=== PATIENT | male | born 1950 | race Caucasian/White ===

== ENCOUNTER 2025-01-08 07:10 | Inpatient (IN) | payer OTHER ==
--- OUTSIDE RECORDS SUMMARY | 2025-01-08 07:21 | XMS REPORT | Clinical Summary ---
Author Name Unknown Organization [facility] [place] Address [address] [place] [address] Care Team Providers Care Screen Operator Name Role Phone Farhan Bond MD Unavailable [phone] Mila Monreal APRN Primary Care Provider Gómez Ortiz Unavailable Figueroa Humphreys MD Unavailable Catracho Oseguera MD PhD Unavailable Maru Medina RN Unavailable [phone] Catracho Oseguera MD PhD Primary Care Provider [phone] Catarino Vang MD Unavailable Allergies No known active allergies Medications hydrALAZINE (APRESOLINE) 100 mg tablet Take 1 tablet (100 mg) by mouth 3 (three) times a day. Active eplerenone (INSPRA) 50 mg tablet Take 1 tablet (50 mg) by mouth daily. Active atorvastatin (LIPITOR) 20 mg tablet Take 1 tablet (20 mg) by mouth at bedtime. Active NIFEdipine (ADALAT CC) 60 MG 24 hr tablet Take 1 tablet (60 mg) by mouth daily. Active tamsulosin (FLOMAX) 0.4 mg 24 hr capsule Take 1 capsule (0.4 mg) by mouth daily. Active ezetimibe (ZETIA) 10 mg tablet Take 1 tablet (10 mg) by mouth daily. Active dutasteride (AVODART) 0.5 mg capsule Take 1 capsule (0.5 mg) by mouth at bedtime. Active pantoprazole (PROTONIX) 40 mg EC tablet Take 1 tablet (40 mg) by mouth 2 (two) times a day before meals. Active metFORMIN (GLUCOPHAGE-XR) 500 mg 24 hr tablet Take 1 tablet (500 mg) by mouth daily with breakfast. Active co-enzyme Q-10 30 mg capsule Take 1 capsule (30 mg) by mouth daily. Active fluticasone propionate (FLONASE) 50 mcg/spray nasal spray Inhale 2 sprays (100 mcg) into each nostril daily. Active cholecalciferol , vitamin D3, 1,250 mcg (50,000 unit) capsuleIndicati ons:Adenocarcin frederick, NOS of unknown primary site,Vitamin D deficiency, not otherwise specified Take 1 capsule (50,000 Units) by mouth every 7 days. 12 capsule Active naloxone (Narcan) 4 mg/actuation nasal sprayIndication s:Adenocarcinom a, NOS of unknown primary site Use 1 dose into one nostril as needed for opioid overdose. Do not prime or test the inhaler prior to adminstration. Give another dose into the other nostril after 2 to 3 minutes if the patient does not respond or responds and then relapses into respiratory depression. 1 each Active aspirin 81 mg chewable tabletIndicatio ns:Adenocarcino ma, NOS of unknown primary site Chew and swallow 1 tablet (81 mg) by mouth daily for 90 days. 90 tablet 2024 Active senna-docusate (Senna Plus) 8.6 mg-50 mg tabletIndicatio ns:Constipation , not otherwise specified Take 4 tablets by mouth twice daily. 240 tablet 5 3:13 PM CDT Active lidocaine (LIDODERM) 5% (700 mg/patch) transdermal patchIndication s:Neoplasm related pain (acute) (chronic) Place 2 patches on the skin daily. Remove & Discard patch within 12 hours or as directed by . Remove old patch(es) before replacing new patch(es). 30 patch 5 3:13 PM CDT 025 Active OLANZapine (ZyPREXA) 2.5 mg tabletIndicatio ns:Insomnia, not otherwise specified Take 1 tablet by mouth every 6 hours as needed for anxiety and 2 tablets (5mg) at bedtime for sleep. 120 tablet 5 3:13 PM CDT 025 Active polyethylene glycol (GLYCOLAX) 17 gram/dose powderIndicatio ns:Constipation , not otherwise specified Fill powder to ghada inside cap (17 g). Stir and dissolve in any 4 to 8 ounces then drink solution as directed. Take 17 g by mouth twice daily. 1020 g 5 3:13 PM CDT 025 Active sodium chloride 1,000 mg tabletIndicatio ns:Hyposmolalit y and/or hyponatremia Take 2 tablets (2 g) by mouth 3 (three) times a day. 180 tablet 5 3:13 PM CDT 025 Active ondansetron (Zofran) 8 mg tabletIndicatio ns:Adenocarcino ma, NOS of unknown primary site Take 1 tablet (8 mg) by mouth every 8 (eight) hours as needed for nausea or vomiting. (First Choice) 30 tablet 5 025 Active prochlorperazin e (Compazine) 10 mg tabletIndicatio ns:Adenocarcino ma, NOS of unknown primary site Take 1 tablet (10 mg) by mouth every 6 (six) hours as needed for nausea or vomiting. (Second Choice). Do not take at the same time as olanzapine 60 tablet 5 025 Active morphine (MS CONTIN) 30 mg 12 hr tabletIndicatio ns:Chronic pain due to malignant neoplastic disease Take 1 tablet (30 mg) by mouth every 8 (eight) hours. 025 Active morphine (MSIR) 15 mg IR tabletIndicatio ns:Chronic pain due to malignant neoplastic disease Take 1 tablet (15 mg) by mouth every 4 (four) hours as needed for moderate pain or severe pain. 90 tablet 5 12:24 PM CDT 025 Active chlorthalidone (HYGROTON) 25 mg tablet Take 1 tablet (25 mg) by mouth daily. 2024 Discontinued(S top Taking at Discharge) docusate sodium (COLACE) 100 mg capsule Take 1 capsule (100 mg) by mouth twice daily. 2024 Discontinued(S top Taking at Discharge) UNABLE TO FIND Take 1 capsule by mouth daily. Med Name: Akkermansia for weight loss 2024 Discontinued(S top Taking at Discharge) sodium,potassiu m,mag sulfates (SUPREP BOWEL PREP KIT) 5-3.13-1.6 gram solutionIndicat ions:Colonoscop y planned Take as directed for colonoscopy prep 1 kit 025 2024 Discontinued(S top Taking at Discharge) acetaminophen-c odeine (TYLENOL #3) 300 mg-30 mg tabletIndicatio ns:Adenocarcino ma, NOS of unknown primary site Take 1 tablet by mouth 3 (three) times a day as needed for mild pain or moderate pain. 40 tablet 025 2024 Discontinued(S top Taking at Discharge) gabapentin (Neurontin) 300 mg capsuleIndicati ons:Cancer associated pain Take 1 capsule (300 mg) by mouth 3 (three) times a day. 90 capsule 025 2024 Discontinued(S top Taking at Discharge) meloxicam (MOBIC) 7.5 mg tabletIndicatio ns:Cancer associated pain Take 1 tablet (7.5 mg) by mouth twice daily for 90 days. 60 tablet 2 025 2024 Discontinued(S top Taking at Discharge) oxyCODONE (ROXICODONE) 5 mg immediate release tabletIndicatio ns:Adenocarcino ma, NOS of unknown primary site,Vitamin D deficiency, not otherwise specified Take 1-2 tablets (5-10 mg) by mouth every 8 (eight) hours as needed for moderate pain or severe pain for up to 30 days. 90 tablet 025 2024 Discontinued senna-docusate (Senna Plus) 8.6 mg-50 mg tabletIndicatio ns:Adenocarcino ma, NOS of unknown primary site Take 1-2 tablets by mouth 2 (two) times a day as needed for constipation for up to 90 days. 180 tablet 025 2024 Discontinued(S top Taking at Discharge) oxyCODONE (ROXICODONE) 5 mg immediate release tabletIndicatio ns:Adenocarcino ma, NOS of unknown primary site,Vitamin D deficiency, not otherwise specified Take 1 to 2 tablets (5 to 10 mg) by mouth every 8 (eight) hours as needed for moderate pain or severe pain for up to 30 days. 90 tablet 5 11:39 AM CDT 025 2024 Discontinued(S top Taking at Discharge) HYDROmorphone (DILAUDID) 2 mg tabletIndicatio ns:Neoplasm related pain (acute) (chronic) Take 1 tablet (2 mg) by mouth every 4 (four) hours as needed (Pain). 90 tablet 5 3:13 PM CDT 025 2024 Discontinued(S top Taking at Discharge) morphine (MS CONTIN) 30 mg 12 hr tabletIndicatio ns:Neoplasm related pain (acute) (chronic) Take 1 tablet (30 mg) by mouth every 12 (twelve) hours. 60 tablet 5 3:13 PM CDT 2024 Discontinued(S top Taking at Discharge) magnesium citrate solutionIndicat ions:Adenocarci noma, NOS of unknown primary site Take 296 mL by mouth once for 1 dose. 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 Diplopia 12/26/2024 Disorder of choroid 12/26/2024 Other visual disturbance 12/26/2024 Abnormal ocular motility 12/26/2024 Bilateral lower limb edema 12/25/2024 Hypertension 12/25/2024 Coronary arteriosclerosis 12/25/2024 Other hyperlipidemia 12/25/2024 Benign prostatic hyperplasia 12/25/2024 Anemia in malignant neoplastic disease At increased risk for delirium 12/24/2024 Stress and adjustment reaction 12/24/2024 Adult failure to thrive 12/23/2024 Acute hypoxemic respiratory failure 12/23/2024 Uniform abdominal distention 12/22/2024 Assessment & Plan (12/22/2024 1:57 PM CDT): Malignant ascites - Evaluated by MPT: patient has NO fluid quantity to tap at bedside Assessment & Plan (12/22/2024 4:01 AM CDT): Malignant ascites - MPT consult pending evaluation Malignant pleural effusion 12/22/2024 Assessment & Plan (12/22/2024 1:57 PM CDT): - not on anticoagulation - Pulmonary consulted and saw patient, planned for IPC placement 12/23/24. Assessment & Plan (12/22/2024 4:01 AM CDT): - not on anticoagulation - Pulmonary consult pending for thoracentesis Malignant ascites 12/22/2024 Cardiac enzyme or marker above reference range 0 12/22/2024 Assessment & Plan (12/22/2024 11:41 AM CDT): - Troponin 23 >23 - Denies any chest pain - EKG SR, prolonged MI interval; anterolateral infarct, old, significant repolarization change - continue telemetry Assessment & Plan (12/22/2024 4:01 AM CDT): - Troponin 23 - denies any chest pain - EKG SR, prolonged MI interval; anterolateral infarct, old, significant repolarization change - trend troponin - continue telemetry Alkaline phosphatase above reference range 12/22 D-dimer above reference range 12/22/2024 Assessment & Plan (12/22/2024 11:41 AM CDT): - D- dimer 2.09 - SpO2 94-97% at 3L via NC - Last Echo on 12/16/24 showed LVEF of 60%, no pericardial effusion. - CT Chest PE on 12/15/24 no acute pulmonary embolism. Assessment & Plan (12/22/2024 4:01 AM CDT): - D- dimer 2.09 - SpO2 94-97% at 3L via NC - Last Echo on 12/16/24 showed LVEF of 60%, no pericardial effusion. - CT Chest PE on 12/15/24 no acute pulmonary embolism. - continue to monitor Hyponatremia 12/22/2024 Assessment & Plan (12/22/2024 11:41 AM CDT): - sNa 132 > 133. - trend and monitor Adenocarcinoma, NOS of unknown primary site -Management per primary team Assessment & Plan (12/22/2024 6:53 AM CDT): - sNa 132 - trend and monitor Adenocarcinoma, NOS of unknown primary site - management per primary team Flatulence 12/22/2024 Assessment & Plan (12/22/2024 1:57 PM CDT): -Start Creon 3 times daily with meals. Simethicone as needed. Cancer-related fatigue 12/19/2024 Adjustment disorder with mixed anxiety and depre ssed mood 12/19/2024 Nausea alone 12/19/2024 Cancer associated pain 12/19/2024 Assessment & Plan (12/22/2024 1:57 PM CDT): -Epigastric pain that radiates to right back side, worse with eating. Continue MS contin 30 mg Q12h, HDM PO PRN, and HDM IV PRN. Assessment & Plan (12/22/2024 4:01 AM CDT): - continue MS contin 30 mg Q12h, HDM PO PRN, and HDM IV PRN Slow transit constipation 12/17/2024 Assessment & Plan (12/22/2024 1:57 PM CDT): Reports small BMs over the last week, feels constipated. Start senna and MiraLAX, suppository x 1. Patient had BM x 1 today post bowel regimen. Chronic pain due to malignant neoplastic disease 12/17/2024 Physical deconditioning 12/17/2024 Other elevated white blood cell count 12/17/2024 Assessment & Plan (12/22/2024 11:41 AM CDT): - likely d/t steroid with chemotherapy on 12/21/24 - WBC trended up to 17.6 today (12/22/24) from 10.5 on 12/21/24 - Afebrile. Trend and monitor - monitor off antibiotics Assessment & Plan (12/22/2024 6:53 AM CDT): - likely d/t steroid with chemotherapy on 12/21/24 - Addendum: WBC trended up to 17.6 today (12/22/24) from 10.5 on 12/21/24 - trend and monitor - monitor off antibiotics Generalized abdominal tenderness 12/17/2024 Diffuse pain 12/17/2024 Neuropathic pain 12/17/2024 Pain in right hip 12/17/2024 Pain in right leg 12/17/2024 Pleural effusion 12/15/2024 Right upper quadrant pain 12/15/2024 Mass of pancreas 12/15/2024 Hyposmolality and/or hyponatremia 12/15/2024 Dyspnea 12/15/2024 Assessment & Plan (12/22/2024 11:41 AM CDT): - Likely due to pleural effusion. SpO2 94-97% at 3L via NC - Doppler ultrasound of the lower extremities was negative for DVT. - Chest XR: Increase in malignant right pleural effusion, now moderate in volume. - Duo Nebs PRN - CPAP ordered - Evaluated by pulmonary, plan for IPC placement 12/23/24 Assessment & Plan (12/22/2024 4:01 AM CDT): - SpO2 94-97% at 3L via NC - Doppler ultrasound of the lower extremities was negative for DVT. - Chest XR: Increase in malignant right pleural effusion, now moderate in volume. - Duo Nebs PRN - CPAP ordered - Pulmonary consult pending evaluation Pancreas, NOS cancer 12/12/2024 Adenocarcinoma, NOS of unknown primary site 11/12 Encounters Date Type Department Care Team Description 01/06/2025 Documentation Cardiopulmonary Center - Pulmonology Medicine [address] [facility] Main [facility], 6th [place] [address] Elizabeth Daniels, DIRECTOR SPEECH AND HEARING 01/05/2025 Telephone [facility] [address] [place] [address] Maru Medina, RN [facility] Initial Call 01/03/2025 Documentation [facility] for Target[facility] Therapy [address] [facility] Main Bldg, 11th [place] [address] Ashley Guo 01/03/2025 Documentation [facility] [address] [place] [address] Main [facility], 7th [place] [address] Ashlyn Dobson PA 01/02/2025 Telephone [facility] [address] [place] [address] Maru Medina, [facility] Initial Call 01/02/2025 Documentation Case Management [address] [place] [address] Reema Rapp RN 01/02/2025 Orders Only [facility] [address] [place] [address] Main dg, 7th Floor Elevator [address] [place] [id number] Ashlyn Dobson PA Adenocarcinoma, NOS of unknown primary site (Primary Dx) 01/02/2025 Telephone [facility] [address] [place] [address] Main [facility], 7th [place] [address] Sultana Boggs RN 12/29/2024 5:34 PM CDT Anesthesia Event [facility] [address] [place] [address], 3rd [place] [address] Yasemin Peters MD Jarvis, Lauren M, CRNA 12/28/2024 Telephone [facility] [address] [place], [place] [id number] Maru Medina, [facility] Initial Call 12/26/2024 Orders Only [facility] - Ophthalmology [address] [place] [address] Main dg, 9th [place] [address] Allen Downs, OD 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); Malignant neoplasm of eye <Right side> 12/26/2024 Telephone Case Management [facility] [place] [address] Daylin Castillo RN 12/26/2024 Orders Only Clinical [facility] for Targeted Therapy [facility] Main Bldg, 11th [place] [address] Ashley Guo Adenocarcinoma, NOS of pancreas, NOS (Primary Dx) 12/26/2024 Ophth Exam [facility] - Ophthalmology [address] [facility] Main Bldg, 9th [place] [address] Kirsten Gary MD 12/23/2024 11:10 AM CDT - 12/23/2024 12:35 PM CDT Surgery Cardiop[facility] Center - Pulmonology Procedures [address] [facility] Main dg, 6th [place] [address] Alexis Vasquez MD INSERTION OF INDWELLING TUNNELED PLEURAL CATHETER WITH CUFF 12/23/2024 Orders Only [facility] - Pulmonology Medicine [address] [place] [address] Main dg, 6th [place] [address] Ritesh Green APRN 12/22/2024 Prep for Surgery Card[facility] - Pulmonology Medicine [facility] Main Bldg, 6th [place] [address] Ritesh Green, ROJAS Pleural effusion (Primary Dx) 12/22/2024 Documentation [facility] [address] [place] [address] Main Bldg, 11th [place] [address] Ashley Guo 12/22/2024 Travel 12/21/2024 8:00 PM CDT - 12/30/2024 2:55 PM CDT Hospital Encounter MAIN [address] [place] [address] Ryder Gaines MD Brock, MD Cristiana Quiles Ayman, MD Musunuru, Tejo, MD Musaelyan, Arine, MD Mohammed, Dorcas Tracey MD Regalado-Dellan, Octavio, MD Adenocarcinoma, NOS of unknown primary site (Primary Dx); Malignant pleural effusion; Malignant ascites; Dyspnea; Mass of pancreas; Abnormal ocular motility; Other visual disturbance; Diplopia; Anemia in malignant neoplastic disease; Benign prostatic hyperplasia; Other hyperlipidemia; Hypertension; Bilateral lower limb edema; Stress and adjustment reaction; At increased risk for delirium; Acute hypoxemic respiratory failure; Adult failure to thrive; Flatulence; Hyponatremia; D-dimer above reference range; Alkaline phosphatase above reference range; Cardiac enzyme or marker above reference range; Uniform abdominal distention; Cancer associated pain; Nausea alone; Adjustment disorder with mixed anxiety and depressed mood; Cancer-related fatigue; Pain in right leg; Pain in right hip; Neuropathic pain; Diffuse pain; Generalized abdominal tenderness; Other elevated white blood cell count; Physical deconditioning; Chronic pain due to malignant neoplastic disease; Slow transit constipation; Hyposmolality and/or hyponatremia; Right upper quadrant pain; Pleural effusion; 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 Discharge Disposition: Home with Home-Health or Physical Therapy 12/21/2024 3:30 PM CDT [facility] [place] [place] [address] [facility], 8th [place] [address] Ashlyn Dobson PA Fakhoury, Vivian A, RN Adenocarcinoma, NOS of unknown primary site (Primary Dx) 12/21/2024 3:00 PM CDT Follow-Up [facility] [address] [place] [address], 7th Floor Elevator [address] [place] [id number] Catracho Oseguera MD PhD Adenocarcinoma, NOS of unknown primary site (Primary Dx); Constipation, not otherwise specified; Fatigue; Neoplasm related pain (acute) (chronic) 12/21/2024 12:46 PM CDT - 12/21/2024 7:59 PM CDT Hospital Encounter [facility] [address] [place] [address] Ashlyn Dobson PA Adenocarcinoma, NOS of unknown primary site; Adenocarcinoma, NOS of pancreas, NOS Discharge Disposition: Home 12/21/2024 Orders Only Urgent Symptom Clinic [address] [place] [address], 2nd Floor Elevator C, Check-in at the [facility]ulatory [facility] [place] [address] Alem Armenta, DIRECTOR SPEECH AND HEARING 12/21/2024 Orders Only Clinical [facility] for Targeted Therapy [facility] Main [facility], 11th [place] [address] PacoAshley Adenocarcinoma, NOS of pancreas, NOS (Primary Dx) 12/21/2024 Orders Only [facility] [address] [place] [address] Main [facility], 7th [place] [address] Sarah Barth, [facility] Adenocarcinoma, NOS of unknown primary site (Primary Dx) 12/21/2024 Travel 12/20/2024 Telephone [facility] [address] [facility], 8th Floor Elevator T [place] [address] Josué Thomas RN Chemotherapy 12/20/2024 Orders Only Cardiopulmonary Center - Pulmonology Medicine [address] [place] [address], 6th [place] [address] Macie Sarah, DIRECTOR SPEECH AND HEARING Pleural effusion (Primary Dx) 12/20/2024 Orders Only [facility] [address] [place] [address], 11th [place] [address] PacoAshley Adenocarcinoma, NOS of pancreas, NOS (Primary Dx) 12/19/2024 Orders Only [facility] [address] [place] [address], 11th [place] [address] Paco Ashley Adenocarcinoma, NOS of pancreas, NOS (Primary Dx) 12/16/2024 Documentation [facility] [address] [place] [address] Maru Medina, RN 12/15/2024 4:13 PM CDT - 12/15/2024 5:18 PM CDT Surgery Cardiopulmonary Center - Pulmonology Procedures [address] [facility] Main [facility], 6th [place] [address] Colby Callahan MD THORACENTESIS,NEEDLE OR CATHETER,ASPIRATION OF THE PLEURAL SPACE; WITH IMAGING GUIDANCE 12/15/2024 6:17 AM CDT - 12/20/2024 5:35 PM CDT Hospital Encounter [place] [address] [place] [address] Clarisse Can MD Lamie, Peter, DO Taylor, Terry Pham, MD Leung, Cerena, MD Leukocytosis (Primary Dx); Mass of pancreas; Hyposmolality and/or hyponatremia; Pleural effusion; Abdominal pain; Generalized abdominal tenderness; Physical deconditioning; Chronic pain due to malignant neoplastic disease; Slow transit constipation; Shortness of breath; Right upper quadrant pain; Adenocarcinoma, NOS of unknown primary site; Constipation, not otherwise specified; Neoplasm related pain (acute) (chronic); Insomnia, not otherwise specified; Cancer-related fatigue; Cancer associated pain; Nausea alone; Adjustment disorder with mixed anxiety and depressed mood; Pain in right leg; Pain in right hip; Neuropathic pain; Diffuse pain Discharge Disposition: Home with Home-Health or Physical Therapy 12/15/2024 Orders Only [facility] [address] [place] [address], 7th [place] [address] Catracho Oseguera MD PhD 12/15/2024 Orders Only Gastrointestinal [address], 7th Floor Elevator A [place] [id number] Ashlyn Dobson PA Adenocarcinoma, NOS of pancreas, NOS (Primary Dx) 12/15/2024 Prep for Surgery [facility] - Pulmonology Medicine [address] [place] [address], 6th [place] [address] Mariah Joiner APRN Pleural effusion (Primary Dx) 12/15/2024 Orders Only Gastrointestinal [address], 7th [place] [address] Ashlyn Dobson PA Adenocarcinoma, NOS of unknown primary site (Primary Dx) 12/15/2024 Telephone [facility] [address] [place] [address] Main [facility], 7th Floor Elevator [address] [place] [id number] Ag Horton RN 12/15/2024 Travel 12/14/2024 10:15 AM CDT - 12/14/2024 11:59 PM CDT Hospital Encounter [facility] [address] [place] [address] Ashlyn Dobson PA Adenocarcinoma, NOS of unknown primary site Discharge Disposition: Home 12/14/2024 9:00 AM CDT Consult [facility] [address] [place] [address], 7th [place] [address] Catracho Oseguera MD PhD Adenocarcinoma, NOS of unknown primary site (Primary Dx); Vitamin D deficiency, not otherwise specified 12/14/2024 7:48 AM CDT - 12/14/2024 10:14 AM CDT Hospital Encounter [facility] [address] [place] [address] Ashlyn Dobson PA Adenocarcinoma, NOS of unknown primary site; Adenocarcinoma, NOS of pancreas, NOS; Vitamin D deficiency, not otherwise specified Discharge Disposition: Home 12/14/2024 Documentation [facility] [address] [place] [address], 7th [place] [address] Any Estes 12/14/2024 Orders Only Neuroradiology [address] [place] [address] Nereida Hernandez MD 12/12/2024 8:45 AM CDT - 12/12/2024 11:59 PM CDT Hospital Encounter [facility] Management Center [address] [place] [address], 4th [place] [address] Figueroa Humphreys MD Discharge Disposition: Home 12/12/2024 8:29 AM CDT - 12/12/2024 8:44 AM CDT Hospital Encounter [facility] [address] [place] [address], 4th [place] [address] Figueroa Humphreys MD Chronic pain Discharge Disposition: Home 12/12/2024 Refill Internal Medicine Center [address] [place] [address], 9th [place] [address] Antionette Iyer RN Adenocarcinoma, NOS of unknown primary site 12/12/2024 Orders Only Gastrointestinal Center [address] [facility] Main Bldg, 7th [place] [address] Ashlyn Dobson PA Adenocarcinoma, NOS of pancreas, NOS (Primary Dx) 12/12/2024 Travel 12/08/2024 Orders Only Gastrointestinal Center [facility] Main dg, 7th [place] [address] Ashlyn Dobson PA Adenocarcinoma, NOS of unknown primary site (Primary Dx) 12/07/2024 10:20 AM CDT - 12/07/2024 11:59 PM CDT Hospital Encounter Pain Management Center [facility] Main [facility], 4th [place] [address] Manolo Carpio MD Nouri, Kent, MD Cancer associated pain (Primary Dx); Adenocarcinoma, NOS of unknown primary site Discharge Disposition: Home 12/07/2024 Telephone Internal Medicine Center [facility] Main dg, 9th [place] [address] Carlos Enrique Monrealira, DIRECTOR SPEECH AND HEARING 12/07/2024 Orders Only Internal Medicine Center [facility] Main [facility], 9th [place] [address] Jocelin Latira, DIRECTOR SPEECH AND HEARING 12/07/2024 Orders Only Pain Management Center [facility] Main [facility], 4th [place] [address] Wayne Farris MD Chronic pain (Primary Dx) 12/07/2024 Orders Only Pain Management Center [address] [facility] Main dg, 4th [place] [address] Figueroa Humphreys MD 12/06/2024 Telephone Internal Medicine Center [address] [facility] Main dg, 9th [place] [address] Carlos Enrique Monrealira, DIRECTOR SPEECH AND HEARING 12/05/2024 10:55 AM CDT Anesthesia Event Endoscopy Center [address] [facility] Main dg, 5th Floor Elevator [place] [id number] Lele Horne MD 12/05/2024 10:30 AM CDT - 12/05/2024 11:40 AM CDT Surgery [facility] [address] [place] [address], 5th [place] [address] Senia Mason MD DIAGNOSTIC UPPER GASTROINTESTINAL ENDOSCOPY 12/05/2024 8:57 AM CDT - 12/05/2024 12:29 PM CDT Hospital Encounter Endoscopy Center [address] [place] [address], 5th [place] [address] Senia Mason MD Adenocarcinoma, NOS of unknown primary site Discharge Disposition: Home 12/05/2024 Travel 12/02/2024 9:25 AM CDT - 12/02/2024 11:59 PM CDT Hospital Encounter [facility] [address] [place] [address] Mila Monreal APRN Irwin, David, MD Adenocarcinoma, NOS of unknown primary site Discharge Disposition: Home 12/02/2024 8:00 AM CDT POEM Appointments Perioperative Evaluation [facility] Management Center [address] [place] [address], 6th [place] [address] Mila Monreal APRN 12/01/2024 11:59 PM CDT Anesthesia Event [facility] [address] [place] [address], 6th [place] [address] Yina Mcarthur RN 12/01/2024 12:00 PM CDT - 12/01/2024 11:59 PM CDT Hospital Encounter [facility] [address] [place] [address] Mila Monreal APRN Hoang, Quoc T, PA Adenocarcinoma, NOS of unknown primary site [C80.1] (Primary Dx) Discharge Disposition: Home 12/01/2024 Orders Only Interventional Radiology [address] [facility], 4th [place] [address] Gómez Ortiz PA 12/01/2024 Orders Only Internal Medicine Center [address] Main Bldg, 9th [place] [address] Jocelin, Latira, DIRECTOR SPEECH AND HEARING Adenocarcinoma, NOS of unknown primary site (Primary Dx) 11/29/2024 Telephone Internal Medicine Center [address] Main Bldg, 9th [place] [address] Jocelin, Latira, DIRECTOR SPEECH AND HEARING Results (I discussed PET/Ct results with the patient yesterday as well as a plan. We will proceed with IR bx/EGD/colonoscopy. Dr. Grimaldo and Dr. Rodriguez was in agreement with plan. Patient was agreeable. ) 11/29/2024 Orders Only Gastrointestinal Center - Gastroenterology, Hepatology & Nutrition [address] Main Bldg, 7th [place] [address] Damari Gilliland PA Colonoscopy planned (Primary Dx) 11/29/2024 Refill Endoscopy Center [address] Main Bldg, 5th [place] [address] Supriya Goldman RN 11/29/2024 Orders Only Main Interventional Radiology [address] [facility] Bldg, 3rd [place] [address] [place] R[place] PA 11/28/2024 Orders Only Internal Medicine Center [address] Main Bldg, 9th [place] [address] Jocelin, Latira, DIRECTOR SPEECH AND HEARING Adenocarcinoma, NOS of unknown primary site (Primary Dx) 11/24/2024 Lab Requisition [facility] Manuelito Stacy MD Witson, Anne S., MD 11/23/2024 8:00 AM CDT Ancillary Procedure MD [facility] [place] [address] [facility] [address]nd [place] [address] Jocelin, Latira, DIRECTOR SPEECH AND HEARING Adenocarcinoma, NOS of unknown primary site 11/23/2024 Prep for Procedure Endoscopy Center [address] Main Bldg, 5th [place] [address] Meera Stephens, ROJAS Adenocarcinoma, NOS of unknown primary site (Primary Dx) 11/22/2024 12:37 PM CDT - 11/22/2024 11:59 PM CDT Hospital Encounter [facility] - Cardiology [address] [place] [address] Main [facility], 2nd [place] [address] Mila Monreal, DIRECTOR SPEECH AND HEARING Adenocarcinoma, NOS of unknown primary site Discharge Disposition: Home 11/22/2024 12:00 PM CDT - 11/22/2024 12:36 PM CDT Hospital Encounter Diagnostic Laboratory Center [address] [place] [address] JocelinMila, DIRECTOR SPEECH AND HEARING Adenocarcinoma, NOS of unknown primary site; Type 2 diabetes mellitus, not otherwise specified Discharge Disposition: Home 11/22/2024 11:00 AM CDT Office Visit Internal Medicine Center [address] [place] [address], 9th [place] [address] JocelinMila, DIRECTOR SPEECH AND HEARING Adenocarcinoma, NOS of unknown primary site (Primary Dx); Type 2 diabetes mellitus, not otherwise specified 11/22/2024 Travel 11/21/2024 12:30 PM CDT NPR MDA PATIENT ACCESS Juana Grimaldo MD 11/21/2024 Orders Only Internal Medicine Center [address] [place] [address], 9th [place] [address] JocelinCarlos Enriqueira, DIRECTOR SPEECH AND HEARING Adenocarcinoma, NOS of unknown primary site (Primary Dx) after 01/09/2024 Surgical History Surgery Date Site/Laterality Comments HIP ARTHROPLASTY 06/14/2024 Right SHOULDER SURGERY 09/14/2018 Left LUMBAR LAMINECTOMY 09/14/2018 TRIGGER FINGER RELEASE 09/14/1999 MI ESOPHAGOGASTRODUODENOSCOP Y TRANSORAL DIAGNOSTIC 12/05/2024 Esophagus/N/A Procedure: DIAGNOSTIC UPPER GASTROINTESTINAL ENDOSCOPY; Surgeon: Senia Mason MD; Location: MAIN ENDOSCOPY; Service: GASTROENTEROLOGY MI COLONOSCOPY FLX DX W/TIMOTHY J SPEC WHEN PFRMD 12/05/2024 N/A Procedure: DIAGNOSTIC FLEXIBLE COLONOSCOPY PROXIMAL TO SPLENIC FLEXURE; Surgeon: Senia Mason MD; Location: MAIN ENDOSCOPY; Service: GASTROENTEROLOGY MI THORACENTESIS NEEDLE/CATH PLEURA W/IMAGING 12/15/2024 Right Procedure: THORACENTESIS,NEEDLE OR CATHETER,ASPIRATION OF THE PLEURAL SPACE; WITH IMAGING GUIDANCE; Surgeon: Colby Callahan MD; Location: MAIN PULM PROC; Service: PULMONARY MI INSERTION INDWELLING TUNN ELED PLEURAL CATHETER 12/23/2024 Chest/Right Procedure: INSERTION OF INDWELLING TUNNELED PLEURAL CATHETER WITH CUFF; Surgeon: Alexis Vasquez MD; Location: MAIN PULM PROC; Service: PULMONARY Medical History Medical History Date Comments Duodenal ulcer with hemorrhage 09/14/1984 Prediabetes Benign prostatic hyperplasia without lower urina ry tract symptom Childhood asthma Simple varicose veins <Bilateral> Osteoarthritis Adenocarcinoma, NOS of unknown primary site 11/12 Family History Medical History Relation Name Comments Chronic lymphocytic leukemia Brother Lung cancer Maternal Uncle Relation Name Status Comments Brother Maternal Uncle Social History Tobacco Use Types Packs/Day Years Used Date Smoking Tobacco: Former Cigarettes Smokeless Tobacco: Former Quit: 2022 Tobacco Cessation:Counseling Given: Not Answered Alcohol Use Standard Drinks/Week Comments Not Currently 14 (1 standard drink = 0.6 oz pu re alcohol) AUDIT-C Answer Date Recorded Q1: How often do you have a drink containing alcohol? Never 12/15/2024 Q2: How many drinks containi ng alcohol do you have on a typical day when you are drinking? Patient does not drink Q3: How often do you have si x or more drinks on one occasion? Never 12/15/2024 Sex and Gender Information Value Date Recorded Sex Assigned at Not on file Legal Sex Male 9:53 AM CDT Gender Identity Not on file Sexual Orientation Not on file Obstetrics History Last Filed Vital Signs Vital Sign Reading Time Taken Comments Blood Pressure 156/67 12/30/2024 12:25 PM CDT Pulse 89 12/30/2024 12:25 PM CDT Temperature 37 °C (98.6 °F) 12/30/2024 12:25 PM CDT Respiratory Rate 20 12/30/2024 12:25 PM CDT Oxygen Saturation 94% 12/30/2024 12:25 PM CDT Inhaled Oxygen Concentration - - Weight 97.2 kg (214 lb 4.6 oz) 12/30/2024 4:00 A M CDT Height 177.8 cm (5' 10") 12/22/2024 8:26 PM CDT Body Mass Index 30.75 12/22/2024 8:26 PM CDT Plan of Treatment Upcoming Encounters Date Type Department Care Team (Late st Contact Info) Description 01/12/2025 3:00 PM CDT Telemedicine Internal Medicine Center [address] [place] [address], 6th [place] [address] Ariadna Morley APRN,AGAEVERETTEP [address] [place] [id number] [email or web address] 01/18/2025 10:15 AM CDT Appointment Diagnostic Laboratory Center [address] [place] [address] Catracho Oseguera MD PhD [address] [place] [phone] [email or web address] 01/18/2025 1:00 PM CDT Infusion Ambulatory Treatment [place] - [address], 8th [place] [address] Catracho Oseguera MD PhD [address] [place] [phone] [email or web address] 02/01/2025 11:45 AM CDT Appointment Diagnostic Laboratory Center [address] [place] [id number] Catracho Oseguera MD PhD [address] [place] [phone] [email or web address] 02/01/2025 12:30 PM CDT Infusion Ambulatory Treatment [place] - [address], 8th [place] [address] Catracho Oseguera MD PhD [address] [place] [phone] [email or web address] 02/10/2025 12:00 PM CDT Telemedicine Clinical Genetics 15[address] [facility] - Main Bldg, 9th Floor, [place] [address] Ashlyn Dobson PA [address] [place] [address] [email or web address] 06/19/2025 11:30 AM CDT Appointment Main [facility] [address] [facility] Main Bldg, 7th [place] [address] Kirsten Gary MD [address] [place] [address] [email or web address] Maintenance Due Date Last Done Comments Pneumococcal Vaccine: 50+ Ye ars (1 of 2 - PCV) 1970 COVID-19 Vaccine (3 - Pfizer risk series) 01/01/2021 12/04/2020, 11/13/2020 Influenza Vaccine (#1) 2024 Medical Devices Implanted Type Area Senior Clinical Research Scientist Device Identifier Shelf Expiration Date Model / Serial / Lot Right Hip Replacement Implant Dental Implants Procedures Procedure Name Priority Date/Time Associated Diagnosis Comments [facility] Routine 01/04/2025 8:15 AM CDT Adenocarcinoma , NOS of pancreas, NOS POC GLUCOSE SCREEN Routine 12/30/2024 1:41 PM CDT POC GLUCOSE SCREEN Routine 12/30/2024 7:26 AM CDT .CBC Routine 12/30/2024 1:13 AM CDT LACTATE DEHYDROGENASE Routine 12/30/2024 1:13 AM CDT COMPREHENSIVE METABOLIC PANEL Routine 1:13 AM CDT COMPLETE BLOOD COUNT W/ DIFFERENTIAL Routine 12/30/2024 1:13 AM CDT PHOSPHORUS LEVEL Routine 12/30/2024 1:13 AM CDT MAGNESIUM LEVEL Routine 12/30/2024 1:13 AM CDT POC GLUCOSE SCREEN Routine 12/29/2024 10:17 PM CDT POC GLUCOSE SCREEN Routine 12/29/2024 7:42 PM CDT MRI BRAIN WO CONTRAST Routine 12/29/2024 6:23 PM CDT MRI ORBITS WO CONTRAST Routine 6:23 PM CDT HOME O2 EVAL Routine 12/29/2024 3:33 PM CDT POC GLUCOSE SCREEN Routine 12/29/2024 2:25 PM CDT POC GLUCOSE SCREEN Routine 12/29/2024 8:14 AM CDT OSCILLATORY PEP Routine 12/29/2024 8:00 AM CDT .CBC Routine 12/29/2024 4:44 AM CDT LACTATE DEHYDROGENASE Routine 12/29/2024 4:44 AM CDT COMPREHENSIVE METABOLIC PANEL Routine 4:44 AM CDT COMPLETE BLOOD COUNT W/ DIFFERENTIAL Routine 12/29/2024 4:44 AM CDT PHOSPHORUS LEVEL Routine 12/29/2024 4:44 AM CDT MAGNESIUM LEVEL Routine 12/29/2024 4:44 AM CDT OSCILLATORY PEP Routine 12/28/2024 8:00 PM CDT POC GLUCOSE SCREEN Routine 12/28/2024 7:10 PM CDT OSCILLATORY PEP Routine 12/28/2024 2:00 PM CDT POC GLUCOSE SCREEN Routine 12/28/2024 1:29 PM CDT POC GLUCOSE SCREEN Routine 12/28/2024 8:01 AM CDT OSCILLATORY PEP Routine 12/28/2024 8:00 AM CDT .CBC Routine 12/28/2024 12:16 AM CDT LACTATE DEHYDROGENASE Routine 12/28/2024 12:16 AM CDT COMPREHENSIVE METABOLIC PANEL Routine 12:16 AM CDT COMPLETE BLOOD COUNT W/ DIFFERENTIAL Routine 12/28/2024 12:16 AM CDT PHOSPHORUS LEVEL Routine 12/28/2024 12:16 AM CDT MAGNESIUM LEVEL Routine 12/28/2024 12:16 AM CDT POC GLUCOSE SCREEN Routine 12/27/2024 10:06 PM CDT OSCILLATORY PEP Routine 12/27/2024 8:00 PM CDT POC GLUCOSE SCREEN Routine 12/27/2024 6:20 PM CDT MUSK ANTIBODY Routine 12/27/2024 5:10 PM CDT MG LES EVALUATION Routine 12/27/2024 5:10 PM CDT OSCILLATORY PEP Routine 12/27/2024 2:00 PM CDT POC GLUCOSE SCREEN Routine 12/27/2024 1:21 PM CDT ACETYLCHOLINE RECEPTOR MODULATING AB Routine 12/27/2024 10:04 AM CDT OSCILLATORY PEP Routine 12/27/2024 8:00 AM CDT POC GLUCOSE SCREEN Routine 12/27/2024 7:26 AM CDT .CBC Routine 12/27/2024 5:43 AM CDT LACTATE DEHYDROGENASE Routine 12/27/2024 5:43 AM CDT COMPREHENSIVE METABOLIC PANEL Routine 5:43 AM CDT COMPLETE BLOOD COUNT W/ DIFFERENTIAL Routine 12/27/2024 5:43 AM CDT PHOSPHORUS LEVEL Routine 12/27/2024 5:43 AM CDT MAGNESIUM LEVEL Routine 12/27/2024 5:43 AM CDT POC GLUCOSE SCREEN Routine 12/26/2024 10:59 PM CDT POC GLUCOSE SCREEN Routine 12/26/2024 8:59 PM CDT OSCILLATORY PEP Routine 12/26/2024 8:00 PM CDT POC GLUCOSE SCREEN Routine 12/26/2024 4:27 PM CDT FUNDUS PHOTOS - OU - BOTH EYES Routine 0 12/26/2024 3:44 PM CDT Adenocarcinoma , NOS of unknown primary site OCT, OPTIC NERVE - OU - BOTH EYES Routine 12/26/2024 2:35 PM CDT Adenocarcinoma , NOS of unknown primary site OCT, RETINA - OU - BOTH EYES Routine 2:35 PM CDT Adenocarcinoma , NOS of unknown primary site [place] VISUAL FIELD, LIMIT ED - OU - BOTH EYES Routine 12/26/2024 2:26 PM CDT Adenocarcinoma , NOS of unknown primary site OSCILLATORY PEP Routine 12/26/2024 2:00 PM CDT HOME O2 EVAL Routine 12/26/2024 12:03 PM CDT POC GLUCOSE SCREEN Routine 12/26/2024 8:13 AM CDT OSCILLATORY PEP Routine 12/26/2024 8:00 AM CDT .CBC Routine 12/26/2024 5:50 AM CDT LACTATE DEHYDROGENASE Routine 12/26/2024 5:50 AM CDT COMPREHENSIVE METABOLIC PANEL Routine 5:50 AM CDT COMPLETE BLOOD COUNT W/ DIFFERENTIAL Routine 12/26/2024 5:50 AM CDT PHOSPHORUS LEVEL Routine 12/26/2024 5:50 AM CDT MAGNESIUM LEVEL Routine 12/26/2024 5:50 AM CDT POC GLUCOSE SCREEN Routine 12/25/2024 10:57 PM CDT OSCILLATORY PEP Routine 12/25/2024 8:00 PM CDT POC GLUCOSE SCREEN Routine 12/25/2024 6:38 PM CDT XR CHEST 1 VW PORTABLE Routine 3:15 PM CDT OSCILLATORY PEP Routine 12/25/2024 2:00 PM CDT POC GLUCOSE SCREEN Routine 12/25/2024 1:18 PM CDT POC GLUCOSE SCREEN Routine 12/25/2024 9:20 AM CDT OSCILLATORY PEP Routine 12/25/2024 8:00 AM CDT .CBC Routine 12/25/2024 6:44 AM CDT LACTATE DEHYDROGENASE Routine 12/25/2024 6:44 AM CDT COMPREHENSIVE METABOLIC PANEL Routine 6:44 AM CDT COMPLETE BLOOD COUNT W/ DIFFERENTIAL Routine 12/25/2024 6:44 AM CDT PHOSPHORUS LEVEL Routine 12/25/2024 6:44 AM CDT MAGNESIUM LEVEL Routine 12/25/2024 6:44 AM CDT POC GLUCOSE SCREEN Routine 12/24/2024 8:37 PM CDT OSCILLATORY PEP Routine 12/24/2024 8:00 PM CDT POC GLUCOSE SCREEN Routine 12/24/2024 6:[address] HEAD WO CONTRAST STAT 12/24/2024 4:52 PM CDT POC GLUCOSE SCREEN Routine 12/24/2024 3:22 PM CDT OSCILLATORY PEP Routine 12/24/2024 2:00 PM CDT URINALYSIS W/REFLEX CULTURE GROUPER Routine 12/24/2024 10:14 AM CDT URINALYSIS W/REFLEX CULTURE Routine 12/13 10:14 AM CDT URINE CULTURE Routine 12/24/2024 10:14 AM CDT POC GLUCOSE SCREEN Routine 12/24/2024 8:42 AM CDT OSCILLATORY PEP Routine 12/24/2024 8:00 AM CDT DIFFERENTIAL Routine 12/24/2024 6:27 AM CDT .CBC Routine 12/24/2024 6:27 AM CDT LACTATE DEHYDROGENASE Routine 12/24/2024 6:27 AM CDT COMPREHENSIVE METABOLIC PANEL Routine 6:27 AM CDT COMPLETE BLOOD COUNT W/ DIFFERENTIAL Routine 12/24/2024 6:27 AM CDT PHOSPHORUS LEVEL Routine 12/24/2024 6:27 AM CDT MAGNESIUM LEVEL Routine 12/24/2024 6:27 AM CDT OSCILLATORY PEP Routine 12/24/2024 2:00 AM CDT EKG, 12-LEAD (PORTABLE) Routine 12/24/2024 OSCILLATORY PEP Routine 12/23/2024 8:00 PM CDT POC GLUCOSE SCREEN Routine 12/23/2024 7:43 PM CDT BLOOD CULTURE Routine 12/23/2024 2:20 PM CDT OSCILLATORY PEP Routine 12/23/2024 2:00 PM CDT POC GLUCOSE SCREEN Routine 12/23/2024 1:56 PM CDT XR CHEST 1 VW PORTABLE Routine 11:39 AM CDT MI INSERTION INDWELLING TUNNELED PLEURAL CATHETER 12/23/2024 10:20 AM CDT Pleural effusion PULMONARY ULTRASOUND Routine 12/23/2024 10:06 AM CDT POC GLUCOSE SCREEN Routine 12/23/2024 8:34 AM CDT OSCILLATORY PEP Routine 12/23/2024 8:00 AM CDT HC PROCALCITONIN (PCT) Add-On 5:22 AM CDT .CBC Routine 12/23/2024 5:22 AM CDT LACTATE DEHYDROGENASE Routine 12/23/2024 5:22 AM CDT COMPREHENSIVE METABOLIC PANEL Routine 5:22 AM CDT COMPLETE BLOOD COUNT W/ DIFFERENTIAL Routine 12/23/2024 5:22 AM CDT PHOSPHORUS LEVEL Routine 12/23/2024 5:22 AM CDT MAGNESIUM LEVEL Routine 12/23/2024 5:22 AM CDT OSCILLATORY PEP Routine 12/22/2024 8:00 PM CDT VAP US ABDOMEN LIMITED Routine 10:21 AM CDT OSCILLATORY PEP Routine 12/22/2024 8:00 AM CDT OSCILLATORY PEP Routine 12/22/2024 3:57 AM CDT OSCILLATORY PEP Routine 12/22/2024 3:57 AM CDT OSCILLATORY PEP Routine 12/22/2024 3:57 AM CDT OSCILLATORY PEP Routine 12/22/2024 3:57 AM CDT OSCILLATORY PEP Routine 12/22/2024 3:57 AM CDT TROPONIN T Routine 12/22/2024 3:56 AM CDT .CBC Routine 12/22/2024 3:56 AM CDT COMPLETE BLOOD COUNT W/ DIFFERENTIAL Routine 12/22/2024 3:56 AM CDT PHOSPHORUS LEVEL Routine 12/22/2024 3:56 AM CDT MAGNESIUM LEVEL Routine 12/22/2024 3:56 AM CDT BASIC METABOLIC PANEL, CALCI UM TOTAL Routine 12/22/2024 3:56 AM CDT NOCTURNAL NIPPV (CPAP OR BIPAP) Routine 12/22/2024 3:15 AM CDT EKG, 12-LEAD (PORTABLE) STAT 12/22/2024 US LEG VENOUS DOPPLER BILATERAL STAT 12/21/2024 9:47 PM CDT D DIMER Routine 12/21/2024 8:26 PM CDT APTT Routine 12/21/2024 8:26 PM CDT PROTHROMBIN TIME Routine 12/21/2024 8:26 PM CDT NT PRO BNP Routine 12/21/2024 8:26 PM CDT CARDIAC PANEL Routine 12/21/2024 8:26 PM CDT XR CHEST 1 VW Routine 12/21/2024 8:23 PM CDT PHOSPHORUS LEVEL Add-On 12/21/2024 12:57 PM CDT Adenocarcinoma , NOS of unknown primary site .CBC Routine 12/21/2024 12:57 PM CDT Adenocarcinoma , NOS of unknown primary site [facility] TUMOR PORTRAIT (S END OUT) BLD Routine 12/21/2024 12:57 PM CDT Adenocarcinoma , NOS of pancreas, NOS CARBOHYDRATE ANTIGEN 19-9 Routine 2024 12:57 PM CDT Adenocarcinoma , NOS of unknown primary site COMPREHENSIVE METABOLIC PANEL Routine 12:57 PM CDT Adenocarcinoma , NOS of unknown primary site COMPLETE BLOOD COUNT W/ DIFFERENTIAL Routine 12/21/2024 12:57 PM CDT Adenocarcinoma , NOS of unknown primary site MAGNESIUM LEVEL Routine 12/21/2024 12:57 PM CDT Adenocarcinoma , NOS of unknown primary site SCAN GENETIC TESTING RESULTS 12/21/2024 SODIUM LEVEL Routine 12/20/2024 12:36 PM CDT HOME O2 EVAL Routine 12/20/2024 8:57 AM CDT SODIUM LEVEL Routine 12/20/2024 7:44 AM CDT .CBC Routine 12/20/2024 3:02 AM CDT COMPREHENSIVE METABOLIC PANEL Routine 3:02 AM CDT COMPLETE BLOOD COUNT W/ DIFFERENTIAL Routine 12/20/2024 3:02 AM CDT SODIUM LEVEL Routine 12/19/2024 6:17 PM CDT SODIUM LEVEL Routine 12/19/2024 11:44 AM CDT XR CHEST 1 VW PORTABLE Routine 10:05 AM CDT SODIUM LEVEL Routine 12/19/2024 7:45 AM CDT .CBC Routine 12/19/2024 3:47 AM CDT COMPREHENSIVE METABOLIC PANEL Routine 3:47 AM CDT COMPLETE BLOOD COUNT W/ DIFFERENTIAL Routine 12/19/2024 3:47 AM CDT SODIUM LEVEL Routine 12/18/2024 5:55 PM CDT SODIUM LEVEL Routine 12/18/2024 12:04 PM CDT SODIUM LEVEL Routine 12/18/2024 6:34 AM CDT .CBC Routine 12/18/2024 3:02 AM CDT COMPREHENSIVE METABOLIC PANEL Routine 3:02 AM CDT COMPLETE BLOOD COUNT W/ DIFFERENTIAL Routine 12/18/2024 3:02 AM CDT SODIUM LEVEL Routine 12/17/2024 7:42 PM CDT SODIUM LEVEL Routine 12/17/2024 12:03 PM CDT MAGNESIUM LEVEL Add-On 12/17/2024 6:37 AM CDT SODIUM LEVEL Routine 12/17/2024 6:37 AM CDT .CBC Routine 12/17/2024 3:34 AM CDT COMPREHENSIVE METABOLIC PANEL Routine 3:34 AM CDT COMPLETE BLOOD COUNT W/ DIFFERENTIAL Routine 12/17/2024 3:34 AM CDT SODIUM LEVEL Routine 12/16/2024 5:50 PM CDT SODIUM LEVEL Routine 12/16/2024 3:06 PM CDT ECHOCARDIOGRAM 2D COMPLETE Routine 12/16 10:38 AM CDT CORTISOL, TOTAL Add-On 12/16/2024 7:39 AM CDT THYROID STIMULATING HORMONE Add-On 12/2024 7:39 AM CDT SODIUM LEVEL STAT 12/16/2024 7:39 AM CDT DRUG SCREEN, URINE Routine 12/16/2024 7:25 AM CDT .CBC Routine 12/16/2024 2:38 AM CDT COMPREHENSIVE METABOLIC PANEL Routine 2:38 AM CDT COMPLETE BLOOD COUNT W/ DIFFERENTIAL Routine 12/16/2024 2:38 AM CDT XR HIP 2 OR 3 VW W PELVIS RIGHT Routine 12/15/2024 6:56 PM CDT XR FEMUR 2 VW RIGHT Routine 12/15/2024 6:56 PM CDT XR ABDOMEN AP Routine 12/15/2024 6:55 PM CDT OSMOLALITY URINE Routine 12/15/2024 6:32 PM CDT SODIUM URINE Routine 12/15/2024 6:32 PM CDT XR CHEST 1 VW PORTABLE Routine 4:33 PM CDT CYTOLOGY NON-POWER SYSTEM DISPATCHER INTERPRETATION Routine 12/15/2024 4:10 PM CDT Pleural effusion BODY FLUID DIFF PATH REVIEW Routine 11/2024 4:10 PM CDT Pleural effusion BODY FLUID DIFFERENTIAL Routine 12/16/19 4:10 PM CDT Pleural effusion CELL COUNT BODY FLUID Routine 12/15/2024 4:10 PM CDT Pleural effusion CHOLESTEROL BODY FLUID Routine 4:10 PM CDT Pleural effusion CELL COUNT W/ DIFF BODY FLUID Routine 4:10 PM CDT Pleural effusion TRIGLYCERIDE BODY FLUID Routine 12/16/19 4:10 PM CDT Pleural effusion PROTEIN BODY FLUID Routine 12/15/2024 4:10 PM CDT Pleural effusion LACTATE DEHYDROGENASE BODY FLUID Routine 12/15/2024 4:10 PM CDT Pleural effusion GLUCOSE BODY FLUID Routine 12/15/2024 4:10 PM CDT Pleural effusion AMYLASE LEVEL BODY FLUID Routine 025 4:10 PM CDT Pleural effusion ALBUMIN LEVEL BODY FLUID Routine 025 4:10 PM CDT Pleural effusion AFB SMEAR Routine 12/15/2024 4:10 PM CDT Pleural effusion AFB CULTURE W/ SMEAR - PERFORMABLE Routine 12/15/2024 4:10 PM CDT Pleural effusion FUNGAL CULTURE W/ SMEAR Routine 12/16/19 4:10 PM CDT Pleural effusion BODY FLUID CULTURE W/ GRAM STAIN Routine 12/15/2024 4:10 PM CDT Pleural effusion MI THORACENTESIS NEEDLE/CATH PLEURA W/IMAGING 12/15/2024 3:40 PM CDT Pleural effusion PULMONARY ULTRASOUND Routine 12/15/2024 3:29 PM CDT AP BOSTONGENE TUMOR PORTRAIT (SEND OUT) MATERIAL REQUEST Routine 12/15/2024 3:03 PM CDT Adenocarcinoma , NOS of pancreas, NOS URINALYSIS WITH MICROSCOPIC IF INDICATED Routine 12/15/2024 9:22 AM CDT URINALYSIS WITH MICROSCOPIC IF INDICATED Routine 12/15/2024 9:22 AM CDT URINE CULTURE Routine 12/15/2024 9:[address] HEAD WO CONTRAST Routine 12/15/2024 9:[address] CHEST PULMONARY EMBOLISM W CONTRAST Routine 12/15/2024 9:[address] ABDOMEN PELVIS W CONTRAST Routine 11/2024 9:16 AM CDT OSMOLALITY Routine 12/15/2024 7:00 AM CDT POC TROPONIN I Routine 12/15/2024 6:48 AM CDT XR CHEST 1 VW Routine 12/15/2024 6:43 AM CDT HC POC BLOOD UREA NITRO-BUN STAT 11/2024 6:31 AM CDT NT PRO BNP Routine 12/15/2024 6:27 AM CDT .CBC Routine 12/15/2024 6:27 AM CDT LACTIC ACID, VENOUS STAT 12/15/2024 6:27 AM CDT LIPASE LEVEL Routine 12/15/2024 6:27 AM CDT AMYLASE LEVEL Routine 12/15/2024 6:27 AM CDT LACTATE DEHYDROGENASE Routine 12/15/2024 6:27 AM CDT FRACTIONATED BILIRUBIN Routine 6:27 AM CDT PHOSPHORUS LEVEL Routine 12/15/2024 6:27 AM CDT MAGNESIUM LEVEL Routine 12/15/2024 6:27 AM CDT COMPREHENSIVE METABOLIC PANEL Routine 6:27 AM CDT COMPLETE BLOOD COUNT W/ DIFFERENTIAL Routine 12/15/2024 6:27 AM CDT EKG, 12-LEAD (PORTABLE) STAT 12/15/2024 ZINVITAE Routine 12/14/2024 11:09 AM CDT Adenocarcinoma , NOS of unknown primary site Vitamin D deficiency, not otherwise specified HP FOCUSED LB V1 (DNA) INTERPRETATION AND REPORT Routine 12/14/2024 11:09 AM CDT Adenocarcinoma , NOS of unknown primary site MDA AP IHC WORKUP Routine 12/14/2024 10:02 AM CDT Adenocarcinoma , NOS of unknown primary site MDA AP IHC WORKUP Routine 12/14/2024 10:02 AM CDT Adenocarcinoma , NOS of unknown primary site TERRI CP MSI NORMAL Routine 12/14/2024 7:56 AM CDT Adenocarcinoma , NOS of pancreas, NOS .CBC Routine 12/14/2024 7:56 AM CDT Adenocarcinoma , NOS of unknown primary site NGS BLOOD CONTROL Routine 12/14/2024 7:56 AM CDT Adenocarcinoma , NOS of pancreas, NOS MAGNESIUM LEVEL Routine 12/14/2024 7:56 AM CDT Adenocarcinoma , NOS of unknown primary site LIPID PANEL Routine 12/14/2024 7:56 AM CDT Adenocarcinoma , NOS of unknown primary site VITAMIN D 25 HYDROXY LEVEL Routine 12/14 7:56 AM CDT Adenocarcinoma , NOS of unknown primary site [id number] TA REPEAT GENOTYPE Routine 2024 7:56 AM CDT Adenocarcinoma , NOS of unknown primary site DPYD FULL GENE SEQUENCING Routine 2024 7:56 AM CDT Adenocarcinoma , NOS of unknown primary site CANCER ANTIGEN 125 Routine 12/14/2024 7:56 AM CDT Adenocarcinoma , NOS of unknown primary site CARCINOEMBRYONIC ANTIGEN Routine 025 7:56 AM CDT Adenocarcinoma , NOS of unknown primary site CARBOHYDRATE ANTIGEN 19-9 Routine 2024 7:56 AM CDT Adenocarcinoma , NOS of unknown primary site COMPREHENSIVE METABOLIC PANEL Routine 7:56 AM CDT Adenocarcinoma , NOS of unknown primary site COMPLETE BLOOD COUNT W/ DIFFERENTIAL Routine 12/14/2024 7:56 AM CDT Adenocarcinoma , NOS of unknown primary site RICHELLE HARRISON MICROSATELLITE INSTABILITY (MSI) ANALYSIS INTERPRETATION AND REPORT Routine 12/12/2024 10:43 AM CDT Adenocarcinoma , NOS of pancreas, NOS RICHELLE HARRISON SOLID TUMOR GENOMIC SAY FUSIONS 2018 INTERPRETATION AND REPORT Routine 12/12/2024 10:43 AM CDT Adenocarcinoma , NOS of pancreas, NOS RICHELLE HARRISON MDA GEGE - TISSUE (MUTATION ANALYSIS PRECISION PANEL-TISSUE) Routine 12/12/2024 10:43 AM CDT Adenocarcinoma , NOS of pancreas, NOS TERRI AP IHC WORKUP Routine 12/12/2024 10:43 AM CDT Adenocarcinoma , NOS of pancreas, NOS PAIN MANAGEMENT FLUOROSCOPY Routine 11/14 8:45 AM CDT CELIAC/SPLANCHNIC PLEXUS NEUROLYTIC BLOCK Routine 12/12/2024 8:42 AM CDT Chronic pain POC URINE DRUG SCREEN PANEL, QUALITATIVE Routine 12/07/2024 11:35 AM CDT Cancer associated pain POC GLUCOSE SCREEN Routine 12/05/2024 11:47 AM CDT RICHELLE HARRISON ARCHIVED MATERIAL RETRIEVAL Routine 12/05/2024 11:29 AM CDT Adenocarcinoma , NOS of unknown primary site PATHOLOGY BIOPSY INTERPRETATION Routine 12/05/2024 11:08 AM CDT Adenocarcinoma , NOS of unknown primary site MI COLONOSCOPY FLX DX W/TIMOTHY J SPEC WHEN PFRMD 12/05/2024 10:45 AM CDT Adenocarcinoma , NOS of unknown primary site Case Notes 11/29/2024 - Triage approved slot held for 12/05/[address] Rodney DURAN Special Needs CONSULTING SENIOR PRACTICE DIRECTOR HAZEL CALL COMPLETED 11/29/24 MI ESOPHAGOGASTRODUODENOSCOP Y TRANSORAL DIAGNOSTIC 12/05/2024 10:45 AM CDT Adenocarcinoma , NOS of unknown primary site Case Notes 11/29/2024 - Triage approved slot held for 12/05/[address] Rodney DURAN Special Needs CONSULTING SENIOR PRACTICE DIRECTOR HAZEL CALL COMPLETED 11/29/24 POC GLUCOSE SCREEN Routine 12/05/2024 9:38 AM CDT IR US GUIDED BIOPSY MUSCLE/S OFT TISSUE- PELVIC 60 Routine 12/02/2024 11:05 AM CDT Adenocarcinoma , NOS of unknown primary site PATHOLOGY BIOPSY INTERPRETATION Routine 12/02/2024 10:30 AM CDT Adenocarcinoma , NOS of unknown primary site POC GLUCOSE SCREEN Routine 12/02/2024 9:58 AM CDT PETCT F18 FDG (FLUORODEOXYGLUCOSE) WITH CONTRAST Routine 11/23/2024 10:06 AM CDT Adenocarcinoma , NOS of unknown primary site POC GLUCOSE SCREEN Routine 11/23/2024 8:26 AM CDT .CBC Routine 11/22/2024 12:48 PM CDT Adenocarcinoma , NOS of unknown primary site HEMOGLOBIN A1C Routine 11/22/2024 12:48 PM CDT Type 2 diabetes mellitus, not otherwise specified PROSTATE SPECIFIC ANTIGEN Routine 2024 12:48 PM CDT Adenocarcinoma , NOS of unknown primary site CARCINOEMBRYONIC ANTIGEN Routine 025 12:48 PM CDT Adenocarcinoma , NOS of unknown primary site CARBOHYDRATE ANTIGEN 19-9 Routine 2024 12:48 PM CDT Adenocarcinoma , NOS of unknown primary site ALPHA FETOPROTEIN TUMOR MARKER Routine 0 11/22/2024 12:48 PM CDT Adenocarcinoma , NOS of unknown primary site HEPATIC FUNCTION PANEL Routine 12:48 PM CDT Adenocarcinoma , NOS of unknown primary site HEPATITIS C VIRUS ANTIBODY Routine 11/22 12:48 PM CDT Adenocarcinoma , NOS of unknown primary site APTT Routine 11/22/2024 12:48 PM CDT Adenocarcinoma , NOS of unknown primary site COMPLETE BLOOD COUNT W/ DIFFERENTIAL Routine 11/22/2024 12:48 PM CDT Adenocarcinoma , NOS of unknown primary site PROTHROMBIN TIME Routine 11/22/2024 12:48 PM CDT Adenocarcinoma , NOS of unknown primary site LACTATE DEHYDROGENASE Routine 11/22/2024 12:48 PM CDT Adenocarcinoma , NOS of unknown primary site MAGNESIUM LEVEL Routine 11/22/2024 12:48 PM CDT Adenocarcinoma , NOS of unknown primary site PHOSPHORUS LEVEL Routine 11/22/2024 12:48 PM CDT Adenocarcinoma , NOS of unknown primary site CALCIUM LEVEL Routine 11/22/2024 12:48 PM CDT Adenocarcinoma , NOS of unknown primary site GLUCOSE, RANDOM Routine 11/22/2024 12:48 PM CDT Adenocarcinoma , NOS of unknown primary site CREATININE Routine 11/22/2024 12:48 PM CDT Adenocarcinoma , NOS of unknown primary site BLOOD UREA NITROGEN Routine 11/22/2024 12:48 PM CDT Adenocarcinoma , NOS of unknown primary site ELECTROLYTE PANEL Routine 11/22/2024 12:48 PM CDT Adenocarcinoma , NOS of unknown primary site EKG, 12-LEAD (SCHEDULED) Routine 11/22/2024 Adenocarcinoma , NOS of unknown primary site PATHOLOGY OUTSIDE INTERPRETATION Routine 10/28/2024 after 01/09/2024 Results * [facility] (01/04/2025 8:15 AM CDT) Anatomical Region Laterality Modality Other 01/04/2025 12:0 5 PM CDT Impressions 01/04/2025 12:05 PM CDT Tumor metrics have been completed. I personally reviewed these images and agree with the tumor metrics. Narrative 01/04/2025 12:05 PM CDT FULL RESULT: Examination: [facility] on 01/04/2025 12:05 PM Indication:Adenocarcinoma, NOS of pancreas, NOS Findings: Tumor metrics have been completed. Procedure Note Nagi Landeros MD - 01/04/2025 FULL RESULT: Examination: [facility] on 01/04/2025 12:05 PM Indication:Adenocarcinoma, NOS of pancreas, NOS Findings: Tumor metrics have been completed. IMPRESSION: Tumor metrics have been completed. I personally reviewed these images andagree with the tumor metrics. us Ashlyn AGUILLON IMG [facility] ORDERABLES Diamond l Result * (ABNORMAL) POC Glucose Screen - Fingerstick (12/30/2024 1:41 PM CDT) Only the most recent of32 resultswithin the time period is included. Glucose Screen 169(H) 70 - 99 mg/dL 12/30/2024 1:43 PM CDT [facility] POC Sample Type Capillary 12/30/2024 1:43 PM CDT [facility] Blood 12/30/2024 1:41 PM CDT 12/30/2024 1:43 PM CDT Narrative [facility] - 12/30/2024 1:43 PM CDT Capillary blood samples, e.g. obtained by fingerstick, may have inaccurate results in patients with decreased peripheral blood flow. Method description: All results are measured using Electrochemistry test methodology. The glucose in the sample mixes with the reagents on the test strip. The reaction produces an electric current. The amount of current produced is proportional to the glucose concentration in the blood. All POC Glucose screen test results, including critical values, must be interpreted and evaluated in the context of the patients' clinical findings. It is recommended to confirm any questionable test results by core lab methodology. us Octavio Ching MD POCT ORDERABLES - DEVICE Final Result [facility] Unless otherwise noted, all lab tests performed by: Division of Pathology and Laboratory Medicine [address] [place] [id number] * (ABNORMAL) .CBC (12/30/2024 1:13 AM CDT) Only the most recent of18 resultswithin the time period is included. White Blood Cell 8.9 4.1 - 10.5 K/uL 12/30/2024 1:28 AM CDT [facility] Red Blood Cell 3.44(L) 4.30 - 6.04 M/uL 12/30/2024 1:28 AM CDT [facility] Hemoglobin 10.1(L) 13.3 - 17.4 g/dL 12/30/2024 1:28 AM CDT [facility] Hematocrit 31.0(L) 39.5 - 51.8 % 12/30/2024 1:28 AM CDT [facility] Mean Cell Volume 90 82 - 99 fL 12/30/2024 1:28 AM CDT [facility] Mean Cell Hemoglobin 29.4 26.6 - 33.2 pg 12/30/2024 1:28 AM CDT [facility] Mean Cell Hemoglobin Concentration 32.6 31.1 - 35.2 g/dL 12/30/2024 1:28 AM CDT [facility] RDW-SD 45.6 37.5 - 49.7 fL 12/30/2024 1:28 AM CDT [facility] Red Cell Diameter Width 14.2 11.6 - 15.5 % 12/30/2024 1:28 AM CDT [facility] Platelet 291 160 - 397 K/uL 12/30/2024 1:28 AM CDT [facility] Mean Platelet Volume 9.2 9.1 - 12.6 fL 12/30/2024 1:28 AM CDT [facility] INRBC 0.0 0.0 - 0.1 /100 WBC 12/30/2024 1:28 AM CDT [facility] Comment: The INRBC (instrument NRBC) value reflects the enumeration of nucleated red blood cells contained in a 200uL sample of whole blood analyzed by the instrument. This value may differ from the NRBC value reported in a manual differential, which is based on a 100 cell differential. Neutrophil % 67.2 43.2 - 72.7 % 12/30/2024 1:28 AM CDT [facility] Lymphocyte % 15.2(L) 16.8 - 46.2 % 12/30/2024 1:28 AM CDT [facility] Monocyte % 12.2 5.1 - 12.5 % 12/30/2024 1:28 AM CDT [facility] Eosinophil % 2.2 0.4 - 6.3 % 12/30/2024 1:28 AM CDT [facility] Basophil % 0.4 0.2 - 1.4 % 12/30/2024 1:28 AM CDT [facility] IGRE % 2.8(H) 0.1 - 1.5 % 12/30/2024 1:28 AM CDT [facility] Comment:The IGRE% includes M etamyelocytes, Myelocytes and Promyelocytes. Neutrophil Abs 5.98 1.95 - 7.25 K/uL 12/30/2024 1:28 AM CDT [facility] Lymphocyte Abs 1.35 1.01 - 3.24 K/uL 12/30/2024 1:28 AM CDT [facility] Monocyte Abs 1.09(H) 0.24 - 0.85 K/uL 12/30/2024 1:28 AM CDT [facility] Eosinophil Abs 0.20 0.02 - 0.50 K/uL 12/30/2024 1:28 AM CDT [facility] Basophil Abs 0.04 0.02 - 0.09 K/uL 12/30/2024 1:28 AM CDT [facility] IG Abs 0.25(H) 0.01 - 0.12 K/uL 12/30/2024 1:28 AM CDT [facility] Blood Peripheral blood specimen / Unknown Venipuncture / Unknown 12/30/2024 1:13 AM CDT 12/30/2024 1:22 AM CDT Charity Guerrero APRN LAB BLOOD ORDERABLES Final Result [facility] Unless otherwise noted, all lab tests performed by: Division of Pathology and Laboratory Medicine [address] [place] [id number] * (ABNORMAL) Comprehensive Metabolic Panel (12/30/2024 1:13 AM CDT) Only the most recent of16 resultswithin the time period is included. Bilirubin Total <0.3 0.0 - 1.2 mg/dL 12/30/2024 1:59 AM CDT [facility] Comment:Indocyanine Green (I CG) may cause falsely elevated bilirubin results. Total and direct bilirubin must not be measured from samples containing indocyanine green. False elevation of total bilirubin can be seen in patients with IgG concentrations above 28 g/L. eGFR 103 >=60 mL/min/1. 73 sq. m 12/30/2024 1:59 AM CDT [facility] Comment: The eGFRcr is calculated with the 2020 CKD-EPI creatinine equation using creatinine, patient's age, and sex for adults 18 years of age and older. Other factors, especially muscle mass, may affect accuracy and need to be considered. According to the Kidney Disease: Improving Global Outcomes (KDIGO) CKD Work Group 2012 Clinical Practice Guideline, chronic kidney disease (CKD) is defined as the abnormalities of kidney structure or function, present for more than 3 months, with implications for health. CKD should be classified by cause, GFR category, and albuminuria category. KDIGO guidelines provide the following GFR categories. Stage / Description / GFR mL/min/1.73 m2: G1* / Normal or high / >= 90 G2* / Mildly decreased / 60-89 G3a / Mildly to moderately decreased / 45-59 G3b / Moderately to severely decreased / 30-44 G4 / Severely decreased / 15-29 G5 / Kidney failure / <15 *In the absence of evidence of kidney damage, neither G1 nor G2 fulfill criteria for CKD. Tot Protein 6.2(L) 6.4 - 8.3 gm/dL 12/30/2024 1:59 AM CDT [facility] Calcium Level Total 7.0(L) 8.2 - 10.2 mg/dL 12/30/2024 1:59 AM CDT [facility] Alkaline Phosphatase 324(H) 40 - 129 U/L 12/30/2024 1:59 AM CDT [facility] Albumin Level 3.0(L) 3.5 - 5.2 gm/dL 12/30/2024 1:59 AM CDT [facility] AST 39 <=40 U/L 12/30/2024 1:59 AM CDT [facility] ALT 49(H) <=41 U/L 12/30/2024 1:59 AM CDT [facility] Sodium Level 134(L) 136 - 145 mmol/L 12/30/2024 1:59 AM CDT [facility] Potassium Level 4.1 3.4 - 4.5 mmol/L 12/30/2024 1:59 AM CDT [facility] Chloride 101 98 - 107 mmol/L 12/30/2024 1:59 AM CDT [facility] CO2 22 22 - 29 mmol/L 12/30/2024 1:59 AM CDT [facility] Anion Gap 11 4 - 14 mmol/L 12/30/2024 1:59 AM CDT [facility] Creatinine 0.58(L) 0.67 - 1.17 mg/dL 12/30/2024 1:59 AM CDT [facility] BUN 12 6 - 23 mg/dL 12/30/2024 1:59 AM CDT [facility] Glucose Level 144(H) 70 - 99 mg/dL 12/30/2024 1:59 AM CDT [facility] Comment: Effective 04/09/16, the glucose reference intervals have been updated based on [place] [employer] guidelines (Standards of Medical Care in Diabetes 2016. Diabetes Care 2016; 39: S13-S22). Fasting blood glucose: Normal: 70-99 mg/dL Impaired fasting glucose (increased risk for diabetes or pre-diabetes): 100-125 mg/dL Diabetes mellitus: >/=126 mg/dL Random blood glucose: Normal: 70-199 mg/dL Note: Random glucose >100 mg/dL is associated with increased risk for diabetes. Blood Peripheral blood specimen / Unknown Venipuncture / Unknown 12/30/2024 1:13 AM CDT 12/30/2024 1:23 AM CDT Lidya Rome APRN LAB BLOOD ORDERABLES Final Re sult [facility] Unless otherwise noted, all lab tests performed by: Division of Pathology and Laboratory Medicine [address] [place] [id number] * Phosphorus Level (12/30/2024 1:13 AM CDT) Only the most recent of12 resultswithin the time period is included. Phosphorus Level 2.6 2.5 - 4.5 mg/dL 12/30/2024 1:59 AM CDT [facility] Blood Peripheral blood specimen / Unknown Venipuncture / Unknown 12/30/2024 1:13 AM CDT 12/30/2024 1:23 AM CDT Charity Guerrero APRN LAB BLOOD ORDERABLES Final Result [facility] Unless otherwise noted, all lab tests performed by: Division of Pathology and Laboratory Medicine [address] [place] [id number] * Magnesium Level (12/30/2024 1:13 AM CDT) Only the most recent of14 resultswithin the time period is included. Magnesium Level 2.1 1.6 - 2.6 mg/dL 12/30/2024 1:59 AM CDT [facility] Blood Peripheral blood specimen / Unknown Venipuncture / Unknown 12/30/2024 1:13 AM CDT 12/30/2024 1:23 AM CDT Charity Guerrero DIRECTOR SPEECH AND HEARING LAB BLOOD ORDERABLES Final Result [facility] Unless otherwise noted, all lab tests performed by: Division of Pathology and Laboratory Medicine [address] [place] [id number] * LDH (12/30/2024 1:13 AM CDT) Only the most recent of10 resultswithin the time period is included. LDH 212 135 - 225 U/L 12/30/2024 1:59 AM CDT [facility] Blood Peripheral blood specimen / Unknown Venipuncture / Unknown 12/30/2024 1:13 AM CDT 12/30/2024 1:23 AM CDT Narrative [facility] - 12/30/2024 1:59 AM CDT Results greater than 1651 U/L may not be reliable due to matrix effect with extended dilution as it exceeds the dredge hand's recommended limit. Caution should be exercised when interpreting such values and done in conjunction with clinical context. Lidya Rome DIRECTOR SPEECH AND HEARING LAB BLOOD ORDERABLES Final Re sult [facility] Unless otherwise noted, all lab tests performed by: Division of Pathology and Laboratory Medicine [address] [place] [id number] * MRI Orbits without Contrast (12/29/2024 6:23 PM CDT) Anatomical Region Laterality Modality Head Magnetic Resonan ce 12/29/2024 7:11 PM CDT Impressions 12/29/2024 7:20 PM CDT Limited noncontrast images of the orbits demonstrate no gross abnormality. ACTIONABLE ITEMS/RECOMMENDATIONS*: None. *An Actionable Finding is a finding that may be unrelated to the original reason for imaging but potentially actionable, meaning further investigation may be necessary. The Actionable Findings Vigilance Unit (AFVU) assists medical providers with responding to additional radiologic findings that are unexpected and potentially actionable. Narrative 12/29/2024 7:20 PM CDT FULL RESULT: Examination: MRI ORBITS WO CONTRAST, MRI BRAIN WO CONTRAST on 12/29/2024 6:23 PM Clinical History: Adenocarcinoma, NOS of unknown primary site Indication: Evaluation for metastatic disease in eyes Comparison: None. Technique: Noncontrast limited MR images of the orbits were obtained. Localizer brain imaging was obtained. The patient could not tolerate further scanning. Findings: No large mass is seen in the orbits. The optic nerves have a normal noncontrast appearance on T2-weighted images. Mild mucosal thickening is seen in the maxillary sinuses with possible air-fluid level on the right. Procedure Note Vanesa Thornton MD - 12/29/2024 FULL RESULT: Examination: MRI ORBITS WO CONTRAST, MRI BRAIN WO CONTRAST on 56:23 PM Clinical History: Adenocarcinoma, NOS of unknown primary site Indication: Evaluation for metastatic disease in eyes Comparison: None. Technique: Noncontrast limited MR images of the orbits were obtained.Localizer brain imaging was obtained. The patient could not toleratefurther scanning. Findings: No large mass is seen in the orbits. The optic nerves have a normalnoncontrast appearance on T2-weighted images. Mild mucosal thickening isseen in the maxillary sinuses with possible air-fluid level on theright. IMPRESSION: Limited noncontrast images of the orbits demonstrate no grossabnormality. ACTIONABLE ITEMS/RECOMMENDATIONS*: None. *An Actionable Finding is a finding that may be unrelated to the originalreason for imaging but potentially actionable, meaning furtherinvestigation may be necessary. The Actionable Findings Vigilance Unit(AFVU) assists medical providers with responding to additional radiologicfindings that are unexpected and potentially actionable. Octavio Ching MD [facility] ORDERABLES Final Result * MRI Brain without Contrast (12/29/2024 6:23 PM CDT) Anatomical Region Laterality Modality Head Magnetic Resonan ce 12/29/2024 7:11 PM CDT Impressions 12/29/2024 7:20 PM CDT Limited noncontrast images of the orbits demonstrate no gross abnormality. ACTIONABLE ITEMS/RECOMMENDATIONS*: None. *An Actionable Finding is a finding that may be unrelated to the original reason for imaging but potentially actionable, meaning further investigation may be necessary. The Actionable Findings Vigilance Unit (AFVU) assists medical providers with responding to additional radiologic findings that are unexpected and potentially actionable. Narrative 12/29/2024 7:20 PM CDT FULL RESULT: Examination: MRI ORBITS WO CONTRAST, MRI BRAIN WO CONTRAST on 12/29/2024 6:23 PM Clinical History: Adenocarcinoma, NOS of unknown primary site Indication: Evaluation for metastatic disease in eyes Comparison: None. Technique: Noncontrast limited MR images of the orbits were obtained. Localizer brain imaging was obtained. The patient could not tolerate further scanning. Findings: No large mass is seen in the orbits. The optic nerves have a normal noncontrast appearance on T2-weighted images. Mild mucosal thickening is seen in the maxillary sinuses with possible air-fluid level on the right. Procedure Note Vanesa Thornton MD - 12/29/2024 FULL RESULT: Examination: MRI ORBITS WO CONTRAST, MRI BRAIN WO CONTRAST on 56:23 PM Clinical History: Adenocarcinoma, NOS of unknown primary site Indication: Evaluation for metastatic disease in eyes Comparison: None. Technique: Noncontrast limited MR images of the orbits were obtained.Localizer brain imaging was obtained. The patient could not toleratefurther scanning. Findings: No large mass is seen in the orbits. The optic nerves have a normalnoncontrast appearance on T2-weighted images. Mild mucosal thickening isseen in the maxillary sinuses with possible air-fluid level on theright. IMPRESSION: Limited noncontrast images of the orbits demonstrate no grossabnormality. ACTIONABLE ITEMS/RECOMMENDATIONS*: None. *An Actionable Finding is a finding that may be unrelated to the originalreason for imaging but potentially actionable, meaning furtherinvestigation may be necessary. The Actionable Findings Vigilance Unit(AFVU) assists medical providers with responding to additional radiologicfindings that are unexpected and potentially actionable. Octavio Ching MD IMG MRI ORDERABLES Final Result * MG/LES Evaluation (12/27/2024 5:10 PM CDT) MG LES Interpretation SEE COMMENTS 01/03/2025 9:08 AM CDT [place] [employer] [facility] Comment: No informative autoantibodies were detected. A negative result does not exclude the diagnosis of an autoimmune neuromuscular junction disorder. AChR Binding Ab-[place] 0.00 <=0.02 nmol/L 01/03/2025 9:08 AM CDT [facility] Comment: ADDITIONAL INFORMATION This test was developed and its performance characteristics determined by [facility] in a manner consistent with CLIA requirements. This test has not been cleared or approved by the U.S. Food and Drug Administration. P/Q-Type-Wu 0.00 <=0.02 nmol/L 01/03/2025 9:08 AM CDT [place] [employer] [place] Comment: ADDITIONAL INFORMATION This test was developed and its performance characteristics determined by [facility] in a manner consistent with CLIA requirements. This test has not been cleared or approved by the U.S. Food and Drug Administration. Test Performed by: [facility] - [address] [address] [employer]: Saira Beltran Ph.D.; CLIA# [id number] Blood Peripheral blood specimen / Unknown Venipuncture / Unknown 12/27/2024 5:10 PM CDT 12/27/2024 5:16 PM CDT Franco Monreal APRN LAB BLOOD ORDERABLES Final Resu lt [place] [facility] * MuSK Ab (12/27/2024 5:10 PM CDT) MuSK Ab-Wu 0.00 0.00 - 0.02 nmol/L 01/02/2025 8:37 PM CDT [facility] Comment: ADDITIONAL INFORMATION This test was developed using an analyte specific reagent. Its performance characteristics were determined by [facility] in a manner consistent with CLIA requirements. This test has not been cleared or approved by the U.S. Food and Drug Administration. Test Performed by: [place] [address] [employer]: Saira Beltran Ph.D.; CLIA# [id number] Blood Peripheral blood specimen / Unknown Venipuncture / Unknown 12/27/2024 5:10 PM CDT 12/27/2024 5:16 PM CDT Franco Monreal [facility] LAB BLOOD ORDERABLES Final Resu lt Performing Organization Address City/[facility]/ZIP Co de Phone Number [facility] * ACh Receptor Ab (12/27/2024 10:04 AM CDT) Pathologist [facility] AChR Binding Ab-Wu 0.00 <=0.02 nmol/L 01/02/2025 10:18 AM CDT [facility] Comment: ADDITIONAL INFORMATION This test was developed and its performance characteristics determined by [facility] in a manner consistent with CLIA requirements. This test has not been cleared or approved by the U.S. Food and Drug Administration. Test Performed by: [address] [id number] [employer]: Saira Beltran Ph.D.; CLIA# [id number] Blood Peripheral blood specimen / Unknown Venipuncture / Unknown 12/27/2024 10:04 AM CDT 12/27/2024 10:16 AM CDT Octavio Ching MD LAB BLOOD ORDERABLES Diamond l Result [facility] * Fundus Photos - OU - Both Eyes (12/26/2024 3:44 PM CDT) Kirsten Villela MD - 12/28/2024 4:19 PM CDT hypopigmenetd are near left inferiro arcades right eye hypopigmenetd nasally with left choroidal nevus with CHARPE left eye Kirsten Gary MD OPHTHALMOLOGY IMG ORDERABLES Final Result * OCT, Optic Nerve - OU - Both Eyes (12/26/2024 2:35 PM CDT) Kirsten Villela MD - 12/26/2024 2:49 PM CDT Decrease average thickness of peripapillary retinal nerve fiber layer right eye and decrease left eye Kirsten Gary MD OPHTHALMOLOGY IMG ORDERABLES Final Result * OCT, Retina - OU - Both Eyes (12/26/2024 2:35 PM CDT) Kirsten Villela MD - 12/26/2024 2:49 PM CDT Normal macular volume. No sign of serous retinopathy Kirsten Gary MD OPHTHALMOLOGY IMG ORDERABLES Final Result * [place] Visual Field, Limited - OU - Both Eyes (12/26/2024 2:26 PM CDT) Kirsten Villela MD - 12/26/2024 2:50 PM CDT Big blind spot right eye with superior temporal visual field defect / arcuate otherwise non-specific changes visual field defect bilateral . No hemianopia, bitemporal or homonymous. us Kirsten Gary MD OPHTHALMOLOGY IMG ORDERABLES Final Result * XR Chest 1 View Portable (12/25/2024 3:15 PM CDT) Only the most recent of4 resultswithin the time period is included. Anatomical Region Laterality Modality Chest Digital Radiogra phy 12/25/2024 3:49 PM CDT Impressions 12/25/2024 3:50 PM CDT Decrease in small to moderate right pleural effusion. Improving right lower lung opacity may represent atelectasis or pneumonia ACTIONABLE ITEMS/RECOMMENDATIONS*: None. *An Actionable Finding is a finding that may be unrelated to the original reason for imaging but potentially actionable, meaning further investigation may be necessary. The Actionable Findings Vigilance Unit (AFVU) assists medical providers with responding to additional radiologic findings that are unexpected and potentially actionable. Narrative 12/25/2024 3:50 PM CDT FULL RESULT: Examination: XR CHEST 1 VW PORTABLE on 12/25/2024 3:15 PM. Clinical History: Dyspnea, pancreatic cancer Indication: Pleural Effusion Comparison: 12/23/2024 Technique: Frontal radiograph of the chest Findings: Support Apparatus: A right pleural drainage catheter remains in place Lungs/Pleura/Mediastinum: The cardiomediastinal silhouette is stable. There is interval decrease in right pleural effusion. Right lower lung opacity shows interval improvement. Small left pleural effusion is again noted. No pneumothorax Procedure Note Sara Euceda MD - 12/25/2024 FULL RESULT: Examination: XR CHEST 1 VW PORTABLE on 12/25/2024 3:15 PM. Clinical History: Dyspnea, pancreatic cancer Indication: Pleural Effusion Comparison: 12/23/2024 Technique: Frontal radiograph of the chest Findings: Support Apparatus: A right pleural drainage catheter remains in place Lungs/Pleura/Mediastinum: The cardiomediastinal silhouette is stable.There is interval decrease in right pleural effusion. Right lower lungopacity shows interval improvement. Small left pleural effusion is againnoted. No pneumothorax IMPRESSION: Decrease in small to moderate right pleural effusion. Improving rightlower lung opacity may represent atelectasis or pneumonia ACTIONABLE ITEMS/RECOMMENDATIONS*: None. *An Actionable Finding is a finding that may be unrelated to the originalreason for imaging but potentially actionable, meaning furtherinvestigation may be necessary. The Actionable Findings Vigilance Unit(AFVU) assists medical providers with responding to additional radiologicfindings that are unexpected and potentially actionable. Dorcas Nguyen MD IMG DIAGNOSTIC IMAGIN G ORDERABLES Final Result * CT Head without Contrast (12/24/2024 4:52 PM CDT) Only the most recent of2 resultswithin the time period is included. Anatomical Region Laterality Modality Head Computed Tomogra phy 12/24/2024 4:56 PM CDT Impressions 12/24/2024 4:58 PM CDT No acute intracranial abnormality is seen. ACTIONABLE ITEMS/RECOMMENDATIONS*: None. *An Actionable Finding is a finding that may be unrelated to the original reason for imaging but potentially actionable, meaning further investigation may be necessary. The Actionable Findings Vigilance Unit (AFVU) assists medical providers with responding to additional radiologic findings that are unexpected and potentially actionable. Narrative 12/24/2024 4:58 PM CDT FULL RESULT: Examination: CT HEAD WO CONTRAST on 12/24/2024 4:52 PM. CLINICAL HISTORY: Dyspnea INDICATION: Focal neurologic deficit COMPARISON: None noncontrast head CT from 12/15/2024. TECHNIQUE: CT head without IV contrast was performed. FINDINGS: Intracranial: There is no acute hemorrhage or large vascular territory infarct. There is no mass effect or midline shift. The ventricles and extra-axial spaces are appropriate for age. Bone: There are no suspicious lytic or sclerotic calvarial and skull base lesions. Extracranial: The orbits are unremarkable. No interval change of chronic sinusitis status post bilateral FESS with widely open sinus drainage pathways, diffuse mild mucosal thickening and sclerotic bone changes of the sinus wall The mastoid air cells are clear. Procedure Note Eliana, MD Ruba - 12/24/2024 FULL RESULT: Examination: CT HEAD WO CONTRAST on 12/24/2024 4:52 PM. CLINICAL HISTORY: Dyspnea INDICATION: Focal neurologic deficit COMPARISON: None noncontrast head CT from 12/15/2024. TECHNIQUE: CT head without IV contrast was performed. FINDINGS: Intracranial: There is no acute hemorrhage or large vascular territory infarct. There is no mass effect or midline shift. The ventricles and extra-axial spaces are appropriate for age. Bone: There are no suspicious lytic or sclerotic calvarial and skull baselesions. Extracranial: The orbits are unremarkable. No interval change of chronic sinusitis status post bilateral FESS withwidely open sinus drainage pathways, diffuse mild mucosal thickening andsclerotic bone changes of the sinus wall The mastoid air cells are clear. IMPRESSION: No acute intracranial abnormality is seen. ACTIONABLE ITEMS/RECOMMENDATIONS*: None. *An Actionable Finding is a finding that may be unrelated to the originalreason for imaging but potentially actionable, meaning furtherinvestigation may be necessary. The Actionable Findings Vigilance Unit(AFVU) assists medical providers with responding to additional radiologicfindings that are unexpected and potentially actionable. Dorcas Nguyen MD IM CT ORDERABLES Fin al Result * (ABNORMAL) Urinalysis w/Reflex Culture Grouper (12/24/2024 10:14 AM CDT) Urine Appearance Clear Clear 12/25/19 11:31 AM CDT [facility] Comment:This result was prev iously suppressed from the chart. Urine Color Yellow Colorless, Straw, Yellow, Dark Yellow, Straw-Yellow 12/24/2024 11:31 AM CDT [facility] Comment:This result was prev iously suppressed from the chart. Urine Specific [place] 1.027 1.003 - 1.035 12/24/2024 11:31 AM CDT [facility] Comment:This result was prev iously suppressed from the chart. Urine pH 6.0 5.0 - 8.0 12/24/2024 11:31 AM CDT [facility] Comment:This result was prev iously suppressed from the chart. Urine Glucose Negative Negative mg/dL 12/24/2024 11:31 AM CDT [facility] Comment:This result was prev iously suppressed from the chart. Urine Ketones Negative Negative mg/dL 12/24/2024 11:31 AM CDT [facility] Comment:This result was prev iously suppressed from the chart. Urine Blood Negative Negative 12/24/2024 11:31 AM CDT [facility] Comment:This result was prev iously suppressed from the chart. Urine Protein 30(A) Negative mg/dL 12/24/2024 11:31 AM CDT [facility] Comment:This result was prev iously suppressed from the chart. Urine Bilirubin Negative Negative 11:31 AM CDT [facility] Urine Urobilinogen Negative Negative 12/24/2024 11:31 AM CDT [facility] Urine Nitrite Negative Negative 12/24/2024 11:31 AM CDT [facility] Comment:This result was prev iously suppressed from the chart. Urine Leukocyte Esterase Negative Negative 12/24/2024 11:31 AM CDT [facility] Comment:This result was prev iously suppressed from the chart. Urine Mucous Trace Not Seen, Trace /HPF 12/24/2024 11:31 AM CDT [facility] Comment:This result was prev iously suppressed from the chart. Urine Bacteria OCC(A) Not Seen /HPF 12/24/2024 11:31 AM CDT [facility] Comment:This result was prev iously suppressed from the chart. Urine Squamous Epithelial Cells OCC Not Seen, OCC, Rare /HPF 12/24/2024 11:31 AM CDT [facility] Comment:This result was prev iously suppressed from the chart. Urine WBC 1 <=2 /HPF 12/24/2024 11:31 AM CDT [facility] Urine RBC 2 <=2 /HPF 12/24/2024 11:31 AM CDT [facility] Urine Voided urine specimen / Unknown Non-blood Collection / Unknown 12/24/2024 10:14 AM CDT 12/24/2024 11:05 AM CDT Narrative [facility] - 12/24/2024 11:31 AM CDT Some reporting parameters within the Urinalysis test have changed due to the implementation of new instrumentation in the Main [place], allowing greater sensitivity of measurement. Urinalysis results reported by the [facility] using existing instrumentation, as well as Urinalysis testing performed manually or by back-up methodology at the main campus, will remain relatively unchanged. New reporting parameters and units will now be reported for all campuses. Dorcas Nguyen MD URINE ORDERABLES Diamond l Result Performing Organization Address City/[facility]/ZIP Co de Phone Number [facility] Unless otherwise noted, all lab tests performed by: Division of Pathology and Laboratory Medicine [address] [place] [id number] * Urine Culture (12/24/2024 10:14 AM CDT) Only the most recent of2 resultswithin the time period is included. [facility] Urine Culture No Growth. 12/26/2024 7:56 AM CDT [facility] Urine Voided urine specimen / Unknown Non-blood Collection / Unknown 12/24/2024 10:14 AM CDT 12/24/2024 11:05 AM CDT Dorcas Nguyen MD MICROBIOLOGY - GENERA L ORDERABLES Final Result Performing Organization Address [facility] Co de Phone Number [facility] Unless otherwise noted, all lab tests performed by: Division of Pathology and Laboratory Medicine [address] [place] [id number] * (ABNORMAL) Differential (12/24/2024 6:27 AM CDT) [facility] Total Cells 100 12/24/2024 11:00 AM CDT [facility] Manual Neutrophil % 98.0(H) 43.2 - 72.7 % 12/24/2024 11:00 AM CDT [facility] Comment:The Neutrophil count includes Bands. Manual Lymphocyte % 2.0(L) 16.8 - 46.2 % 12/24/2024 11:00 AM CDT [facility] Metamyelocyte % 11:00 AM CDT [facility] Comment:The Metamyelocyte co unt includes Myelocytes. Manual Neutrophil Abs 21.07(H) 1.95 - 7.25 K/uL 12/24/2024 11:00 AM CDT [facility] Manual Lymphocyte Abs 0.43(L) 1.01 - 3.24 K/uL 12/24/2024 11:00 AM CDT [facility] RBC Morphology NORMAL 12/24/2024 11:00 AM CDT [facility] PLT Morph Normal Normal 12/24/2024 11:00 AM CDT [facility] Blood Peripheral blood specimen / Unknown Venipuncture / Unknown 12/24/2024 6:27 AM CDT 12/24/2024 6:33 AM CDT Charity Guerrero DIRECTOR [employer]ECH [employer] HEARING LAB BLOOD ORDERABLES Final Result Performing Organization Address [facility] Co de Phone Number [facility] Unless otherwise noted, all lab tests performed by: Division of Pathology and Laboratory Medicine [address] [place] [id number] * EKG, 12-Lead (Portable) (12/24/2024) Only the most recent of3 resultswithin the time period is included. Ginette Archuleta DIRECTOR SPEECH AND HEARING ECG ORDERABLES Final Result Performing Organization Address [facility] Co de Phone Number [facility] * Blood Culture (12/23/2024 2:20 PM CDT) Blood Culture No Growth. 12/28/2024 4:00 PM CDT [facility] Blood (Arm, Right) Venipuncture / Unknown 12/23/2024 2:20 PM CDT 12/23/2024 2:30 PM CDT Dorcas Nguyen MD MICROBIOLOGY - GENERA L ORDERABLES Final Result Performing Organization Address [facility] Co de Phone Number [facility] Unless otherwise noted, all lab tests performed by: Division of Pathology and Laboratory Medicine [address] [place] [id number] * Pulmonary Ultrasound (Image Transfer) (12/23/2024 10:06 AM CDT) Only the most recent of2 resultswithin the time period is included. Narrative Systemgenerated, Documentation - 12/23/2024 10:06 AM CDT This procedure requires no interpretation from the radiologist. Alexis Vasquez MD IMG NON DI ORDERABLES Fi nal Result * (ABNORMAL) Procalcitonin (12/23/2024 5:22 AM CDT) Procalcitonin 0.16(H) <=0.08 ng/mL 12/23/2024 8:26 AM CDT [facility] Blood Peripheral blood specimen / Unknown Venipuncture / Unknown 12/23/2024 5:22 AM CDT 12/23/2024 5:59 AM CDT Narrative [facility] - 12/23/2024 8:26 AM CDT Procalcitonin > 2.00 ng/mL: Procalcitonin levels above 2.00 ng/mL are highly suggestive of a high risk for systematic bacterial infection/ severe sepsis and/or septic shock. Procalcitonin < 0.50 ng/mL: Procalcitonin levels below 0.50 ng/mL are at low risk for progression to severe sepsis and/ or septic shock. Procalcitonin (ProCT) between 0.15 and 2.0 ng/mL do not exclude infection, because localized infections (without systemic signs) may be associated with such low levels. Results greater than 400 ng/mL may not be reliable due to the matrix effect with extended dilution as it exceeds the dredge hand's recommended limit. Caution should be exercised when interpreting such values and done in conjunction with clinical context. Dorcas Nguyen MD LAB BLOOD ORDERABLES Final Result [facility] Unless otherwise noted, all lab tests performed by: Division of Pathology and Laboratory Medicine [address] [place] [address], [place] [id number] * VAP US ABDOMEN LIMITED (12/22/2024 10:21 AM CDT) Anatomical Region Laterality Modality Abdomen/Pelvis Ultrasound Narrative 12/22/2024 10:22 AM CDT VAP Limited Abdominal Exam Ultrasound Date of Procedure: 12/22/2024 Proceduralist name: Yousif Carrizales PA-C Pre-procedure diagnosis: Pancreas, NOS cancer Post-procedure diagnosis: same Reason for visit/encounter: possible bedside US guided paracentesis Findings: On assessment of all abdominal quadrants, RUQ, RLQ, LUQ and LLQ patient has NO fluid quantity to tap at bedside. There is insufficient space to perform the procedure at this time. Requesting provider made aware. Findings were also discussed with patient and family. Bedside RN also aware. Images of the limited abdominal exam have been reviewed and retained as permanent record. Technical procedural support present: yes us Charity Guerrero APRN IMG VAP ORDERABLES Final R esult * (ABNORMAL) Basic Metabolic Panel- Total Calcium (12/22/2024 3:56 AM CDT) eGFR 99 >=60 mL/min/1. 73 sq. m 12/22/2024 4:32 AM CDT [facility] Comment: The eGFRcr is calculated with the 2020 CKD-EPI creatinine equation using creatinine, patient's age, and sex for adults 18 years of age and older. Other factors, especially muscle mass, may affect accuracy and need to be considered. According to the Kidney Disease: Improving Global Outcomes (KDIGO) CKD Work Group 2012 Clinical Practice Guideline, chronic kidney disease (CKD) is defined as the abnormalities of kidney structure or function, present for more than 3 months, with implications for health. CKD should be classified by cause, GFR category, and albuminuria category. KDIGO guidelines provide the following GFR categories. Stage / Description / GFR mL/min/1.73 m2: G1* / Normal or high / >= 90 G2* / Mildly decreased / 60-89 G3a / Mildly to moderately decreased / 45-59 G3b / Moderately to severely decreased / 30-44 G4 / Severely decreased / 15-29 G5 / Kidney failure / <15 *In the absence of evidence of kidney damage, neither G1 nor G2 fulfill criteria for CKD. Calcium Level Total 8.8 8.2 - 10.2 mg/dL 12/22/2024 4:32 AM CDT [facility] Sodium Level 133(L) 136 - 145 mmol/L 12/22/2024 4:32 AM CDT [facility] Potassium Level 4.2 3.4 - 4.5 mmol/L 12/22/2024 4:32 AM CDT [facility] Chloride 97(L) 98 - 107 mmol/L 12/22/2024 4:32 AM CDT [facility] CO2 27 22 - 29 mmol/L 12/22/2024 4:32 AM CDT [facility] Anion Gap 9 4 - 14 mmol/L 12/22/2024 4:32 AM CDT [facility] Creatinine 0.66(L) 0.67 - 1.17 mg/dL 12/22/2024 4:32 AM CDT [facility] BUN 18 6 - 23 mg/dL 12/22/2024 4:32 AM CDT [facility] Glucose Level 138(H) 70 - 99 mg/dL 12/22/2024 4:32 AM CDT [facility] Comment: Effective 04/09/16, the glucose reference intervals have been updated based on [place] Diabetes [employer] guidelines (Standards of Medical Care in Diabetes 2016. Diabetes Care 2016; 39: S13-S22). Fasting blood glucose: Normal: 70-99 mg/dL Impaired fasting glucose (increased risk for diabetes or pre-diabetes): 100-125 mg/dL Diabetes mellitus: >/=126 mg/dL Random blood glucose: Normal: 70-199 mg/dL Note: Random glucose >100 mg/dL is associated with increased risk for diabetes. Blood Peripheral blood specimen / Unknown Venipuncture / Unknown 12/22/2024 3:56 AM CDT 12/22/2024 4:02 AM CDT Charity Guerrero APRN LAB BLOOD ORDERABLES Final Result [facility] Unless otherwise noted, all lab tests performed by: Division of Pathology and Laboratory Medicine [address] [place] [address], [place] [id number] * (ABNORMAL) Troponin T (In-House) (12/22/2024 3:56 AM CDT) Troponin T 23(H) <=19 ng/L 12/22/2024 4:29 AM CDT [facility] Blood Peripheral blood specimen / Unknown Venipuncture / Unknown 12/22/2024 3:56 AM CDT 12/22/2024 4:02 AM CDT Narrative [facility] - 12/22/2024 4:29 AM CDT Reference range established for age 21 - 89 years < 19 ng/L, suggest retest at 3 to 6 hours later to rule out myocardial infarction >= 19 to <=52 ng/L, possible myocardial injury; suggest retest at 3 hours - a change of < 20 ng/L, retest at 6 hours - a change of >= 20 ng/L, suggestive of myocardial infarction > 52 ng/L, suggestive of myocardial infarction Critical value will be reported when cTnT isf > 52 ng/L and only reported for the first in a series. Hemolyzed specimens with Hemolysis Index >100 (100 mg/dl or moderate hemolysis) may cause interferences and falsely low results. Charity Guerrero APRN LAB BLOOD ORDERABLES Final Result [facility] Unless otherwise noted, all lab tests performed by: Division of Pathology and Laboratory Medicine [address] [place] [id number] * US Leg Venous Doppler Bilateral (12/21/2024 9:47 PM CDT) Anatomical Region Laterality Modality Leg, Extremity Ultrasound 12/21/2024 9:49 PM CDT Impressions 12/21/2024 9:53 PM CDT No deep venous thrombosis in the visible vessels of the bilateral lower extremities. ACTIONABLE ITEMS/RECOMMENDATIONS*: None. *An Actionable Finding is a finding that may be unrelated to the original reason for imaging but potentially actionable, meaning further investigation may be necessary. The Actionable Findings Vigilance Unit (AFVU) assists medical providers with responding to additional radiologic findings that are unexpected and potentially actionable. Narrative 12/21/2024 9:53 PM CDT Examination: US LEG VENOUS DOPPLER BILATERAL on 12/21/2024 9:47 PM. 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 TECHNIQUE: Sonographic evaluation of the deep veins of the bilateral lower extremities is performed assessing grayscale appearance, color and spectral Doppler flow and compressibility. FINDINGS: The bilateral common femoral, femoral, proximal deep femoral, and popliteal veins and saphenofemoral junction demonstrate color flow and compressibility. The visualized portions of the bilateral anterior tibial and posterior tibial veins demonstrate color flow. The bilateral posterior tibial vein proximally and peroneal veins were not seen. Bilateral edema does limit evaluation. Procedure Note Nay Mayes MD - 12/21/2024 Examination: US LEG VENOUS DOPPLER BILATERAL on 12/21/2024 9:47 PM. Clinical History: Metastatic adenocarcinoma (cancer of unknown primary,favoring pancreas) Indication: Edema Comparison: None available. TECHNIQUE: Sonographic evaluation of the deep veins of the bilaterallower extremities is performed assessing grayscale appearance, color andspectral Doppler flow and compressibility. FINDINGS: The bilateral common femoral, femoral, proximal deep femoral, andpopliteal veins and saphenofemoral junction demonstrate color flow andcompressibility. The visualized portions of the bilateral anterior tibial and posteriortibial veins demonstrate color flow. The bilateral posterior tibial vein proximally and peroneal veins were notseen. Bilateral edema does limit evaluation. IMPRESSION: No deep venous thrombosis in the visible vessels of the bilateral lowerextremities. ACTIONABLE ITEMS/RECOMMENDATIONS*: None. *An Actionable Finding is a finding that may be unrelated to the originalreason for imaging but potentially actionable, meaning furtherinvestigation may be necessary. The Actionable Findings Vigilance Unit(AFVU) assists medical providers with responding to additional radiologicfindings that are unexpected and potentially actionable. us Ryder Gaines MD [facility] US ORDERABLES Final Res ult * (ABNORMAL) Cardiac Panel (12/21/2024 8:26 PM CDT) Creatine Kinase 47 39 - 308 U/L 12/21/2024 8:58 PM CDT [facility] CKMB 2.9 <=10.4 ng/mL 12/21/2024 8:58 PM CDT [facility] Troponin T 23(H) <=19 ng/L 12/21/2024 8:58 PM CDT [facility] Comment: < 19 ng/L Suggest retest at 3 to 6 hours later to rule out myocardial infarction >= 19 to <=52 ng/L Possible myocardial injury. Suggest retest at 3 hours. - a change of < 20 ng/L, retest at 6 hours - a change of >= 20 ng/L, suggestive of myocardial infarction > 52 ng/L Suggestive of myocardial infarction Critical value will be reported when cTnT is > 52 ng/L and only reported for the first in a series. Hemolyzed specimens with Hemolysis Index >100 (100 mg/dl or moderate hemolysis) may cause interferences and falsely low results. Blood Peripheral blood specimen / Unknown Venipuncture / Unknown 12/21/2024 8:26 PM CDT 12/21/2024 8:30 PM CDT us Bernard Epperson MD LAB BLOOD ORDERABLES Final Resul t Performing Organization Address City/[facility] de Phone Number [facility] Unless otherwise noted, all lab tests performed by: Division of Pathology and Laboratory Medicine [address] [place] [id number] * aPTT (12/21/2024 8:26 PM CDT) Only the most recent of2 resultswithin the time period is included. Activated PTT 34.6 24.8 - 35.6 second(s) 12/21/2024 8:56 PM CDT [facility] Blood Peripheral blood specimen / Unknown Venipuncture / Unknown 12/21/2024 8:26 PM CDT 12/21/2024 8:30 PM CDT us Bernard Epperson MD LAB BLOOD ORDERABLES Final Resul t Performing Organization Address City/[facility] de Phone Number [facility] Unless otherwise noted, all lab tests performed by: Division of Pathology and Laboratory Medicine [address] [place] [id number] * NT-Pro BNP (In-House) (12/21/2024 8:26 PM CDT) Only the most recent of2 resultswithin the time period is included. Pathologist [facility] NT-ProBNP 62 <=125 pg/mL 12/21/2024 8:55 PM CDT [facility] Blood Peripheral blood specimen / Unknown Venipuncture / Unknown 12/21/2024 8:26 PM CDT 12/21/2024 8:30 PM CDT Bernard Epperson MD LAB BLOOD ORDERABLES Final Resul t Performing Organization Address [facility] de Phone Number [facility] Unless otherwise noted, all lab tests performed by: Division of Pathology and Laboratory Medicine [address] [place] [address] [id number] * (ABNORMAL) Prothrombin Time with INR (12/21/2024 8:26 PM CDT) Only the most recent of2 resultswithin the time period is included. [facility] Prothrombin Time 14.2 12.2 - 14.4 second(s) 12/21/2024 8:56 PM CDT [facility] International Normalization Ratio 1.12(H) 0.91 - 1.10 12/21/2024 8:56 PM CDT [facility] Blood Peripheral blood specimen / Unknown Venipuncture / Unknown 12/21/2024 8:26 PM CDT 12/21/2024 8:30 PM CDT us Bernard Epperson MD LAB BLOOD ORDERABLES Final Resul t Performing Organization Address City/[facility] de Phone Number [facility] Unless otherwise noted, all lab tests performed by: Division of Pathology and Laboratory Medicine [address] [place] [phone] * (ABNORMAL) D-dimer (12/21/2024 8:26 PM CDT) Pathologist [facility] D-Dimer 2.09(H) 0.10 - 0.50 mcg/ml FEU 12/21/2024 9:08 PM CDT [facility] Blood Peripheral blood specimen / Unknown Venipuncture / Unknown 12/21/2024 8:26 PM CDT 12/21/2024 8:30 PM CDT Narrative [facility] - 12/21/2024 9:08 PM CDT Repeated and verified. The cut off value for exclusion of venous thromboembolism is <0.51 mcg/mL FEUs (fibrinogen equivalent units). us Bernard Epperson MD LAB BLOOD ORDERABLES Final Resul t [facility] Unless otherwise noted, all lab tests performed by: Division of Pathology and Laboratory Medicine [facility] [place] [address] * X-ray Chest 1 View (12/21/2024 8:23 PM CDT) Only the most recent of2 resultswithin the time period is included. Anatomical Region Laterality Modality Chest Digital Radiogra phy 12/21/2024 8:57 PM CDT Impressions 12/21/2024 8:59 PM CDT Increase in malignant right pleural effusion, now moderate in volume. ACTIONABLE ITEMS/RECOMMENDATIONS*: None. *An Actionable Finding is a finding that may be unrelated to the original reason for imaging but potentially actionable, meaning further investigation may be necessary. The Actionable Findings Vigilance Unit (AFVU) assists medical providers with responding to additional radiologic findings that are unexpected and potentially actionable. Narrative 12/21/2024 8:59 PM CDT FULL RESULT: Examination: XR CHEST 1 VW on 12/21/2024 8:23 PM. Clinical History: Right axillary adenocarcinoma Indication: Other:, Chest pain/Shortness of Breath Comparison: 12/19/2024 Technique: Frontal radiograph of the chest Findings: Support Apparatus: None. Lungs/Pleura/Mediastinum: Increase in malignant right pleural effusion, now moderate in volume. Subjacent opacity may represent atelectasis or pneumonia. Right upper lung and left lung are without airspace disease. Procedure Note Thomas Anne MD - 12/21/2024 FULL RESULT: Examination: XR CHEST 1 VW on 12/21/2024 8:23 PM. Clinical History: Right axillary adenocarcinoma Indication: Other:, Chest pain/Shortness of Breath Comparison: 12/19/2024 Technique: Frontal radiograph of the chest Findings: Support Apparatus: None. Lungs/Pleura/Mediastinum: Increase in malignant right pleural effusion,now moderate in volume. Subjacent opacity may represent atelectasis orpneumonia. Right upper lung and left lung are without airspace disease. IMPRESSION: Increase in malignant right pleural effusion, now moderate in volume. ACTIONABLE ITEMS/RECOMMENDATIONS*: None. *An Actionable Finding is a finding that may be unrelated to the originalreason for imaging but potentially actionable, meaning furtherinvestigation may be necessary. The Actionable Findings Vigilance Unit(AFVU) assists medical providers with responding to additional radiologicfindings that are unexpected and potentially actionable. Bernard Epperson MD G DIAGNOSTIC IMAGING ORDERABLE S Final Result * [facility] Port[facility] (Send Out) Germline Collection, Blood - [facility] Collection (12/21/2024 12:57 PM CDT) [facility] 12/22/2024 9:42 AM CDT [facility] Comment: Specimen for [place] [facility] testing was obtained, processed and sent out to the [facility]. Refer to the performing lab for results. Specimen for [place] [facility] testing was obtained, processed and sent out to the [facility]. Refer to the performing lab for results. Blood Peripheral blood specimen / Unknown Venipuncture / Unknown 12/21/2024 12:57 PM CDT 12/21/2024 1:41 PM CDT Ashlyn AGUILLON LAB BLOOD ORDERABLES Fin al Result [facility] [address] [place] [address], * (ABNORMAL) CA 19-9 (12/21/2024 12:57 PM CDT) Only the most recent of3 resultswithin the time period is included. CA 19-9 72,000.0(H) <=35.0 U/mL 12/21/2024 4:02 PM CDT [facility] Blood Peripheral blood specimen / Unknown Venipuncture / Unknown 12/21/2024 12:57 PM CDT 12/21/2024 1:00 PM CDT Narrative [facility] - 12/21/2024 4:02 PM CDT Results greater than 9500 U/mL may not be reliable due to matrix effect with extended dilution as it exceeds the dredge hand's recommended limit. Caution should be exercised when interpreting such values and done in conjunction with clinical context. This test is measured by electrochemiluminescence immunoassay on [place] immunoassay analyzers. Results obtained in different methods are not interchangeable. us Ashlyn AGUILLON LAB BLOOD ORDERABLES Fin al Result Performing Organization Address City/[facility]/ZIP Co de Phone Number [facility] Unless otherwise noted, all lab tests performed by: Division of Pathology and Laboratory Medicine [address] [place] [id number] * Scan Genetic Testing Results (12/21/2024) Narrative 12/21/2024 Ordered by an unspecified provider. us Provider Not In System SCANNED ORDERS Final Res ult * Sodium Level (12/20/2024 12:36 PM CDT) Only the most recent of14 resultswithin the time period is included. Sodium Level 136 136 - 145 mmol/L 12/20/2024 1:08 PM CDT [facility] Blood Peripheral blood specimen / Unknown Venipuncture / Unknown 12/20/2024 12:36 PM CDT 12/20/2024 12:41 PM CDT Narrative [facility] - 12/20/2024 1:08 PM CDT Reference range established based on adult population us James Monreal APRN LAB BLOOD ORDERABLES Final Resu lt Performing Organization Address City/[facility]/ZIP Co de Phone Number [facility] Unless otherwise noted, all lab tests performed by: Division of Pathology and Laboratory Medicine [address] [place] [id number] * Echocardiogram 2D Complete (12/16/2024 10:38 AM CDT) 12/16/2024 9:55 AM CDT Narrative [facility] - 12/16/2024 12:59 PM CDT Echocardiographic Report Interpretation Summary A complete two-dimensional transthoracic echocardiogram was performed (2D, M- mode, Spectral and color Doppler). There is no comparison study available. Normal left ventricular size and systolic function. LV ejection fraction (LVEF) is in the range of 60% (calculated by method of discs). The right ventricle is normal in size and function. There is no pericardial effusion. Left Ventricle: Normal left ventricular size and systolic function. There is normal left ventricular wall thickness. LV ejection fraction (LVEF) is in the range of 60% (calculated by method of discs). No regional wall motion abnormalities noted. I WMSI = 1.00 % Normal = 100 Segments Size X - Cannot 2 - 1-2 small Interpret 1 - Normal Hypokinetic 3 - Akinetic 4 - Dyskinetic3- 5 moderate 5 - Aneurysmal 6-14 large 15-16 diffuse 3D imaginD volumes were not performed in this study. Cardiac Mechanics/Speckle Tracking Imaging: Speckle tracking imaging was technically limited. Diastology: Impaired LV relaxation pattern of diastolic dysfunction, Doppler suggests normal LA pressures. Right Ventricle: The right ventricle is normal in size and function. Atria: The left atrial size is normal. Right atrial size is normal. Mitral Valve: Mild thickening changes are noted. There is trace mitral regurgitation. Tricuspid Valve: The tricuspid valve is not well visualized, but is grossly normal. Unable to estimate RVSP due to lack of TR visualization. Aortic Valve: The aortic valve opens well. There is trace aortic regurgitation. Pulmonic Valve: The pulmonic valve is not well visualized. There is no pulmonic valvular stenosis. Great Vessels: The aortic root is normal size. The inferior vena cava demonstrates normal size and normal respiratory variation. Pericardium/Pleural: There is no pericardial effusion. MMode/2D Measurements IVSd: 0.88 cm LVIDd: 5.2 cm LVIDs: 3.7 cm LVPWd: 1.1 cm FS: 29.8 % Ao root diam: 3.4 cm Ao root area: 8.9 cm2 LA dimension: 2.9 cm asc Aorta Diam: 3.4 cm LVOT diam: 2.1 cm LVOT area: 3.3 cm2 EDV(MOD-A4C): 114.3 ml EDV(MOD-A2C): 114.8 ml ESV(MOD-A4C): 45.8 ml ESV(MOD-A2C): 46.4 ml EF(MOD-A4C): 59.9 % EF(MOD-A2C): 59.6 % LAV(MOD-A2C): 34.7 ml EDV(MOD-bp): 115.1 ml LAV(MOD-A4C): 33.2 ml ESV(MOD-bp): 46.2 ml LAV(MOD-bp): 37.3 ml EF(MOD-bp): 59.9 % LAV(MOD-bp) Indexed: 17.6 ml/m2 EDV (MOD-bp) Index: 54.2 ml/m2 ESV (MOD-bp) Index: 21.8 ml/m2 RWT: 0.41 cm TAPSE (>1.6): 2.4 cm Doppler Measurements MV E max marisela: 55.5 cm/sec MV V2 max: 104.2 cm/sec MV A max marisela: 85.1 cm/sec MV max P.3 mmHg MV E/A: 0.65 MV V2 mean: 68.3 cm/sec MV mean P.0 mmHg MV V2 VTI: 23.5 cm MVA(VTI): 3.1 cm2 Ao V2 max: 179.7 cm/sec LV V1 max P.2 mmHg Ao max P.9 mmHg LV V1 mean P.7 mmHg Ao V2 mean: 111.4 cm/sec LV V1 max: 114.5 cm/sec Ao mean P.7 mmHg LV V1 mean: 75.6 cm/sec Ao V2 VTI: 32.1 cm LV V1 VTI: 22.1 cm CALI(I,D): 2.3 cm2 CALI(V,D): 2.1 cm2 SV(LVOT): 73.0 ml PA V2 max: 125.1 cm/sec PA max P.3 mmHg PA V2 mean: 78.0 cm/sec PA mean P.8 mmHg PA V2 VTI: 20.9 cm Med Peak E' Marisela: 4.4 cm/sec Lat Peak E' Marisela: 5.2 cm/sec RAP systole: 3.0 mmHg CALI Index (I,D): 1.1 CALI Index (V,D): 0.99 Dimensionless Index: 0.64 E/e' (avg): 11.6 E/e' (lat): 10.8 E/e' (sept): 12.6 Procedure Note Myles Eason MD - 12/16/2024 Echocardiographic Report Interpretation Summary A complete two-dimensional transthoracic echocardiogram was performed (2D,M- mode, Spectral and color Doppler). There is no comparison studyavailable. Normal left ventricular size and systolic function. LV ejection fraction (LVEF) is in the range of 60% (calculated by methodof discs). The right ventricle is normal in size and function. There is no pericardial effusion. Left Ventricle: Normal left ventricular size and systolic function. There is normal leftventricular wall thickness. LV ejection fraction (LVEF) is in the range of60% (calculated by method of discs). No regional wall motion abnormalitiesnoted. I WMSI = 1.00 % Normal = 100 Segments Size X - Cannot 2 - 1-2small Interpret 1 - Normal Hypokinetic 3 - Akinetic 4 - Dyskinetic3-5moderate 5 - Aneurysmal6-14 large 15-16 diffuse 3D imaginD volumes were not performed in this study. Cardiac Mechanics/Speckle Tracking Imaging: Speckle tracking imaging was technically limited. Diastology: Impaired LV relaxation pattern of diastolic dysfunction, Doppler suggestsnormal LA pressures. Right Ventricle: The right ventricle is normal in size and function. Atria: The left atrial size is normal. Right atrial size is normal. Mitral Valve: Mild thickening changes are noted. There is trace mitral regurgitation. Tricuspid Valve: The tricuspid valve is not well visualized, but is grossly normal. Unableto estimate RVSP due to lack of TR visualization. Aortic Valve: The aortic valve opens well. There is trace aortic regurgitation. Pulmonic Valve: The pulmonic valve is not well visualized. There is no pulmonic valvularstenosis. Great Vessels: The aortic root is normal size. The inferior vena cava demonstrates normalsize and normal respiratory variation. Pericardium/Pleural: There is no pericardial effusion. MMode/2D Measurements IVSd: 0.88 cmLVIDd: 5.2 cm LVIDs: 3.7 cm LVPWd: 1.1 cm FS: 29.8 %Ao root diam: 3.4 cm Ao root area: 8.9 cm2 LA dimension: 2.9 cm asc Aorta Diam: 3.4 cmLVOT diam: 2.1 cm LVOT area: 3.3 cm2 EDV(MOD-A4C): 114.3 mlEDV(MOD-A2C): 114.8 ml ESV(MOD-A4C): 45.8 mlESV(MOD-A2C): 46.4 ml EF(MOD-A4C): 59.9 %EF(MOD-A2C): 59.6 % LAV(MOD-A2C): 34.7 ml EDV(MOD-bp): 115.1 mlLAV(MOD-A4C): 33.2 ml ESV(MOD-bp): 46.2 mlLAV(MOD-bp): 37.3 ml EF(MOD-bp): 59.9 %LAV(MOD-bp) Indexed: 17.6 ml/m2 EDV (MOD-bp) Index: 54.2 ml/m2ESV (MOD-bp) Index: 21.8 ml/m2 RWT: 0.41 cmTAPSE (>1.6): 2.4 cm Doppler Measurements MV E max marisela: 55.5 cm/secMV V2 max: 104.2 cm/sec MV A max marisela: 85.1 cm/secMV max P.3 mmHg MV E/A: 0.65MV V2 mean: 68.3 cm/sec MV mean P.0 mmHg MV V2 VTI: 23.5 cm MVA(VTI): 3.1 cm2 Ao V2 max: 179.7 cm/secLV V1 max P.2 mmHg Ao max P.9 mmHgLV V1 mean P.7 mmHg Ao V2 mean: 111.4 cm/secLV V1 max: 114.5 cm/sec Ao mean P.7 mmHgLV V1 mean: 75.6 cm/sec Ao V2 VTI: 32.1 cmLV V1 VTI: 22.1 cm CALI(I,D): 2.3 cm2 CALI(V,D): 2.1 cm2 SV(LVOT): 73.0 mlPA V2 max: 125.1 cm/sec PA max P.3 mmHg PA V2 mean: 78.0 cm/sec PA mean P.8 mmHg PA V2 VTI: 20.9 cm Med Peak E' Marisela: 4.4 cm/secLat Peak E' Marisela: 5.2 cm/sec RAP systole: 3.0 mmHgAVA Index (I,D): 1.1 CALI Index (V,D): 0.99Dimensionless Index: 0.64 E/e' (avg): 11.6E/e' (lat): 10.8 E/e' (sept): 12.6 us Vince Mervat DO CV ECHO ORDERABLES Final Result [facility] * TSH (12/16/2024 7:39 AM CDT) Thyroid Stimulating Hormone 1.07 0.27 - 4.20 mcIU/mL 12/16/2024 2:40 PM CDT [facility] Blood Peripheral blood specimen / Unknown Venipuncture / Unknown 12/16/2024 7:39 AM CDT 12/16/2024 7:56 AM CDT us James Monreal APRN LAB BLOOD ORDERABLES Final Resu lt [facility] Unless otherwise noted, all lab tests performed by: Division of Pathology and Laboratory Medicine [address] [place] [id number] * (ABNORMAL) Cortisol, Total (12/16/2024 7:39 AM CDT) Cortisol 22.60(H) 4.82 - 19.50 mcg/dL 12/16/2024 2:40 PM CDT [facility] Blood Peripheral blood specimen / Unknown Venipuncture / Unknown 12/16/2024 7:39 AM CDT 12/16/2024 7:56 AM CDT Narrative [facility] - 12/16/2024 2:40 PM CDT Cortisol reference intervals are established for the morning hours from 6-10 am and afternoon hours 4-8 pm. Due to circadian rhythm of cortisol levels in serum and plasma, the sample collection time must be noted. Caution should be exercised when interpreting such values and done in conjunction with clinical context. Serum Cortisol Reference Ranges for >/= 21 years old: Morning (6-10 am): 4.82 - 19.5 mcg/dL Afternoon (4-8 pm): 2.47 - 11.9 mcg/dL us James Monreal APRN LAB BLOOD ORDERABLES Final Resu lt [facility] Unless otherwise noted, all lab tests performed by: Division of Pathology and Laboratory Medicine [address] [place] [phone] * Urine Drug Screen STAT, Qualitative, Without Confirmation (12/16/2024 7:25 AM CDT) Scan Result See Scanned Result 12/16/2024 11:25 AM CDT [facility], [facility] Urine Voided urine specimen / Unknown Non-blood Collection / Unknown 12/16/2024 7:25 AM CDT 12/16/2024 8:05 AM CDT Narrative [facility] 12/16/2024 11:25 AM CDT Drugs reported as positive have not been confirmed by a second method and should be used for medical purpose only. To order confirmation testing, contact laboratory. note: Below are cut-off Concentrations for all urine drugs of abuse performed in the laboratory. Any value below the cut-off is considered negative. Some drugs listed in the table may not be included in this panel. Description Cut-off concentration Amphetamine 1000 ng/mL Barbituates 200 ng/mL Benzodiazepines 200 ng/mL Cocaine metabolites 300 ng/mL Fentanyl 1 ng/mL Methadone 300 ng/mL Opiates 300 ng/mL Phencyclidine 25 ng/mL Propoxyphene 300 ng/mL Marijuana Metabolites 50 ng/mL us Vince Crowell DO URINE ORDERABLES Final Result Performing Organization Address City/[facility]/ZIP Co de Phone Number [facility], [facility] [address] [place] [address], [place] * XR Hip 2 or 3 Views w Pelvis Right (12/15/2024 6:56 PM CDT) Anatomical Region Laterality Modality Hip, Extremity Digital Radiogra phy 12/15/2024 7:15 PM CDT Impressions 12/15/2024 7:25 PM CDT Mild thickening of the medial femoral cortex opposite the femoral stem with a unilaminar periosteal reaction. This finding is consistent with altered mechanics and may represent a stress response (no discrete fracture line is detected). The chronicity of this finding is unknown and it may be old. If not, it could potentially progress to a stress fracture. Please correlate to the site of pain. Comparison to prior radiographs of the right hip or femur would be helpful. Otherwise, follow- up radiography is recommended to assess for stability. ACTIONABLE ITEMS/RECOMMENDATIONS*: As above. *An Actionable Finding is a finding that may be unrelated to the original reason for imaging but potentially actionable, meaning further investigation may be necessary. The Actionable Findings Vigilance Unit (AFVU) assists medical providers with responding to additional radiologic findings that are unexpected and potentially actionable. Narrative 12/15/2024 7:25 PM CDT FULL RESULT: Examination: XR FEMUR 2 VW RIGHT, XR HIP 2 OR 3 VW W PELVIS RIGHT, 12/15/2024 6:56 PM. Clinical History: Pleural effusion Metastatic adenocarcinoma of unknown primary site (likely pancreatic) Indication: Pain Comparison: CT of the pelvis 12/15/2024 Technique: XR FEMUR 2 VW RIGHT, XR HIP 2 OR 3 VW W PELVIS RIGHT. Right femur: 2 views. Right hip: 2 views with one view of pelvis. Findings: Right hip and right femur: Right hip arthroplasty. No lucencies worrisome for hardware loosening or metastatic disease are detected. Joint spacing is within normal limits. Mild cortical thickening of the medial femoral cortex opposite the femoral stem with a unilaminar periosteal reaction consistent with altered mechanics due to the femoral stem. No fracture line is detected. The chronicity of this finding is unknown. Please correlate to the site of pain. Mild degenerative narrowing of the left hip joint space with moderate osteophyte formation at the left femoral head/neck junction. The sacroiliac joints and pubic symphysis are within normal limits. Procedure Note Costelloe, Narda, MD - 12/15/2024 FULL RESULT: Examination: XR FEMUR 2 VW RIGHT, XR HIP 2 OR 3 VW W PELVIS RIGHT,12/15/2024 6:56 PM. Clinical History: Pleural effusion Metastatic adenocarcinoma of unknown primary site (likely pancreatic) Indication: Pain Comparison: CT of the pelvis 12/15/2024 Technique: XR FEMUR 2 VW RIGHT, XR HIP 2 OR 3 VW W PELVIS RIGHT. Rightfemur: 2 views. Right hip: 2 views with one view of pelvis. Findings: Right hip and right femur: Right hip arthroplasty. No lucencies worrisomefor hardware loosening or metastatic disease are detected. Joint spacingis within normal limits. Mild cortical thickening of the medial femoral cortex opposite the femoralstem with a unilaminar periosteal reaction consistent with alteredmechanics due to the femoral stem. No fracture line is detected. Thechronicity of this finding is unknown. Please correlate to the site ofpain. Mild degenerative narrowing of the left hip joint space with moderateosteophyte formation at the left femoral head/neck junction. The sacroiliac joints and pubic symphysis are within normal limits. IMPRESSION: Mild thickening of the medial femoral cortex opposite the femoral stemwith a unilaminar periosteal reaction. This finding is consistent withaltered mechanics and may represent a stress response (no discretefracture line is detected). The chronicity of this finding is unknown andit may be old. If not, it could potentially progress to a stress fracture.Please correlate to the site of pain. Comparison to prior radiographs ofthe right hip or femur would be helpful. Otherwise, follow- up radiographyis recommended to assess for stability. ACTIONABLE ITEMS/RECOMMENDATIONS*: As above. *An Actionable Finding is a finding that may be unrelated to the originalreason for imaging but potentially actionable, meaning furtherinvestigation may be necessary. The Actionable Findings Vigilance Unit(AFVU) assists medical providers with responding to additional radiologicfindings that are unexpected and potentially actionable. Clarisse Can MD IMG DIAGNOSTIC IMAGING ORDERAB LES Final Result * X-ray Femur 2 Views Right (12/15/2024 6:56 PM CDT) Anatomical Region Laterality Modality Thigh, Extremity Digital Radiogr aphy 12/15/2024 7:15 PM CDT Impressions 12/15/2024 7:25 PM CDT Mild thickening of the medial femoral cortex opposite the femoral stem with a unilaminar periosteal reaction. This finding is consistent with altered mechanics and may represent a stress response (no discrete fracture line is detected). The chronicity of this finding is unknown and it may be old. If not, it could potentially progress to a stress fracture. Please correlate to the site of pain. Comparison to prior radiographs of the right hip or femur would be helpful. Otherwise, follow- up radiography is recommended to assess for stability. ACTIONABLE ITEMS/RECOMMENDATIONS*: As above. *An Actionable Finding is a finding that may be unrelated to the original reason for imaging but potentially actionable, meaning further investigation may be necessary. The Actionable Findings Vigilance Unit (AFVU) assists medical providers with responding to additional radiologic findings that are unexpected and potentially actionable. Narrative 12/15/2024 7:25 PM CDT FULL RESULT: Examination: XR FEMUR 2 VW RIGHT, XR HIP 2 OR 3 VW W PELVIS RIGHT, 12/15/2024 6:56 PM. Clinical History: Pleural effusion Metastatic adenocarcinoma of unknown primary site (likely pancreatic) Indication: Pain Comparison: CT of the pelvis 12/15/2024 Technique: XR FEMUR 2 VW RIGHT, XR HIP 2 OR 3 VW W PELVIS RIGHT. Right femur: 2 views. Right hip: 2 views with one view of pelvis. Findings: Right hip and right femur: Right hip arthroplasty. No lucencies worrisome for hardware loosening or metastatic disease are detected. Joint spacing is within normal limits. Mild cortical thickening of the medial femoral cortex opposite the femoral stem with a unilaminar periosteal reaction consistent with altered mechanics due to the femoral stem. No fracture line is detected. The chronicity of this finding is unknown. Please correlate to the site of pain. Mild degenerative narrowing of the left hip joint space with moderate osteophyte formation at the left femoral head/neck junction. The sacroiliac joints and pubic symphysis are within normal limits. Procedure Note Narda Goyal MD - 12/15/2024 FULL RESULT: Examination: XR FEMUR 2 VW RIGHT, XR HIP 2 OR 3 VW W PELVIS RIGHT,12/15/2024 6:56 PM. Clinical History: Pleural effusion Metastatic adenocarcinoma of unknown primary site (likely pancreatic) Indication: Pain Comparison: CT of the pelvis 12/15/2024 Technique: XR FEMUR 2 VW RIGHT, XR HIP 2 OR 3 VW W PELVIS RIGHT. Rightfemur: 2 views. Right hip: 2 views with one view of pelvis. Findings: Right hip and right femur: Right hip arthroplasty. No lucencies worrisomefor hardware loosening or metastatic disease are detected. Joint spacingis within normal limits. Mild cortical thickening of the medial femoral cortex opposite the femoralstem with a unilaminar periosteal reaction consistent with alteredmechanics due to the femoral stem. No fracture line is detected. Thechronicity of this finding is unknown. Please correlate to the site ofpain. Mild degenerative narrowing of the left hip joint space with moderateosteophyte formation at the left femoral head/neck junction. The sacroiliac joints and pubic symphysis are within normal limits. IMPRESSION: Mild thickening of the medial femoral cortex opposite the femoral stemwith a unilaminar periosteal reaction. This finding is consistent withaltered mechanics and may represent a stress response (no discretefracture line is detected). The chronicity of this finding is unknown andit may be old. If not, it could potentially progress to a stress fracture.Please correlate to the site of pain. Comparison to prior radiographs ofthe right hip or femur would be helpful. Otherwise, follow- up radiographyis recommended to assess for stability. ACTIONABLE ITEMS/RECOMMENDATIONS*: As above. *An Actionable Finding is a finding that may be unrelated to the originalreason for imaging but potentially actionable, meaning furtherinvestigation may be necessary. The Actionable Findings Vigilance Unit(AFVU) assists medical providers with responding to additional radiologicfindings that are unexpected and potentially actionable. Clarisse Can MD [facility] ORDERAB LES Final Result * X-ray Abdomen AP (12/15/2024 6:55 PM CDT) Anatomical Region Laterality Modality Abdomen Digital Radiogra phy 12/15/2024 7:28 PM CDT Impressions 12/15/2024 7:29 PM CDT No evidence of small bowel obstruction. Narrative 12/15/2024 7:29 PM CDT FULL RESULT: Examination: XR ABDOMEN AP on 12/15/2024 6:55 PM Clinical History: Pleural effusion Indication: Abdominal Pain. Comparison: CT abdomen pelvis 12/15/2024 TECHNIQUE: XR ABDOMEN AP FINDINGS: No dilated small bowel loops. Contrast is present within the colon. Phleboliths are noted in the pelvis. Postsurgical changes of right hip arthroplasty. Degenerative changes of the spine are noted. Procedure Note Macey Sellers MD - 12/15/2024 FULL RESULT: Examination: XR ABDOMEN AP on 12/15/2024 6:55 PM Clinical History: Pleural effusion Indication: Abdominal Pain. Comparison: CT abdomen pelvis 12/15/2024 TECHNIQUE: XR ABDOMEN AP FINDINGS: No dilated small bowel loops. Contrast is present within the colon.Phleboliths are noted in the pelvis. Postsurgical changes of right hip arthroplasty. Degenerative changes ofthe spine are noted. IMPRESSION: No evidence of small bowel obstruction. Clarisse Can MD IMG DIAGNOSTIC IMAGING ORDERAB LES Final Result * Sodium Level, Urine (12/15/2024 6:32 PM CDT) Urine Sodium 142 mmol/L 12/15/2024 7:16 PM CDT [facility] Comment:Normal range not cali ilable for collections less than 24 hours in duration. Urine (Urine Clean Catch) Non-blood Collection / Unknown 12/15/2024 6:32 PM CDT 12/15/2024 7:16 PM CDT Clarisse Can MD URINE ORDERABLES Final Result [facility] Unless otherwise noted, all lab tests performed by: Division of Pathology and Laboratory Medicine [address] [place] [phone] * Osmolality Urine (12/15/2024 6:32 PM CDT) Urine Osmolality 486 50 - 1,400 mOsm/kg H2O 12/15/2024 8:22 PM CDT [facility] Comment:Urinary osmolality m ay vary widely, depending on the state of hydration. Random urine osmolality can range from 50 to 1400 mOsm/kg H2O depending on fluid intake. In individuals on average fluid intake, urine osmolality is typically 300-900 mOsm/kg H2O. Units of measure: mOsm per Kg of water. Urine (Urine Clean Catch) Non-blood Collection / Unknown 12/15/2024 6:32 PM CDT 12/15/2024 8:09 PM CDT Clarisse Can MD URINE ORDERABLES Final Result Performing Organization Address City/[facility]/ZIP Co de Phone Number [facility] Unless otherwise noted, all lab tests performed by: Division of Pathology and Laboratory Medicine [address] [place] [phone] * AFB Smear (12/15/2024 4:10 PM CDT) AFB Smear - Truant Stain No Acid-Fast Bacilli seen on fluorescent stain of Direct Specimen. No AFB seen 12/16/2024 8:49 AM CDT [facility] Fluid (Pleural Fluid, Right) 12/15/2024 4:10 PM CDT Colby Callahan MD MICROBIOLOGY - GENERAL ORDERAB LES Final Result Performing Organization Address [facility]/ZIP Co de Phone Number [facility] Unless otherwise noted, all lab tests performed by: Division of Pathology and Laboratory Medicine [address] [place] [phone] * (ABNORMAL) Cytology Non-Sheet Metal Superintendent Interpretation (12/15/2024 4:10 PM CDT) Gross Description 1 Diff Quik; 3 Pap Stain Slides 1250 ml. cloudy bloody fluid Specimen concentrated by cytocentrifugation technique 1 Cell Block Date/Time Placed in Formalin: 12/19/24 5:14 PM 5 2:40 PM CDT [facility] Major Classification MALIGNANT(A) 5 2:40 PM CDT [facility] Diagnosis Pleural fluid, right: METASTATIC ADENOCARCINOMA 2:40 PM CDT [facility] Comment The cell block preparation was contributory toward making the above diagnosis. 2:40 PM CDT [facility] Retained/Biomark er Testing SR: 4 S, 1 H&E Biomarker Testing: MDL Cell Block: 300+ MDL Pap: No MDL DQ: No FISH DQ: No 2:40 PM CDT [facility] Informational Points Some tests reported here may have been developed and performance characteristics determined by [facility] Pathology and Laboratory Medicine. These tests have not been specifically cleared or approved by the U.S. Food and Drug Administration. 2:40 PM CDT [facility] Fluid (Pleural Fluid, Right) 12/15/2024 4:10 PM CDT 12/16/2024 8:39 AM CDT us Colby Callahan MD LAB CYTOLOGY ORDERABLES Final Result [facility] [address] [address], * Body Fluid Differential (12/15/2024 4:10 PM CDT) Total Cells Body Fluid 100 12/15/2024 10:38 PM CDT [facility] Segmented Neutrophils Body Fluid 8 0 - 25 % 12/15/2024 10:38 PM CDT [facility] Lymphocyte Body Fluid 30 % 12/15/2024 10:38 PM CDT [facility] Histiocyte Body Fluid 47 % 12/15/2024 10:38 PM CDT [facility] Other Cell Body Fluid 15 % 12/15/2024 10:38 PM CDT [facility] Fluid (Pleural Fluid, Right) 12/15/2024 4:10 PM CDT Narrative [facility] - 12/15/2024 10:38 PM CDT This assay has been validated for body fluids. No reference ranges have been established. Test results should be interpreted in context with the patient's clinical condition. Pathologist consult is available. Colby Callahan MD BODY FLUIDS AND STOOLS ORDERAB LES Final Result Performing Organization Address [facility] Co de Phone Number [facility] Unless otherwise noted, all lab tests performed by: Division of Pathology and Laboratory Medicine [address] [place] [phone] * Body Fluid Diff Path Review (12/15/2024 4:10 PM CDT) Body Fluid Diff Interp Clusters of atypical cells identified, suggest correlation with cytology result. 12/16/2024 9:37 AM CDT [facility] Pathologist Signature . 12/16/2024 9:37 AM CDT [facility] Fluid (Pleural Fluid, Right) 12/15/2024 4:10 PM CDT Colby Callahan MD BODY FLUIDS AND STOOLS ORDERAB LES Final Result Performing Organization Address [facility] Co de Phone Number [facility] Unless otherwise noted, all lab tests performed by: Division of Pathology and Laboratory Medicine [address] [place] [phone] * Cholesterol BF (12/15/2024 4:10 PM CDT) Cholesterol Body Fluid 73 mg/dL 12/15/2024 5:46 PM CDT [facility] Fluid (Pleural Fluid, Right) 12/15/2024 4:10 PM CDT 12/15/2024 4:54 PM CDT Narrative [facility] - 12/15/2024 5:46 PM CDT This body fluid test has not been cleared or approved by the FDA. Its performance characteristics have been validated by our laboratory. No reference ranges have been established unless otherwise stated. Comparison of this result with the concentration in the blood (serum or plasma) is recommended. The test result must be interpreted in conjunction with the patient's clinical context. Colby Callahan MD BODY FLUIDS AND STOOLS ORDERAB LES Final Result Performing Organization Address City/[facility]/ZIP Co de Phone Number [facility] Unless otherwise noted, all lab tests performed by: Division of Pathology and Laboratory Medicine [address] [place] [phone] * Body Fluid Culture w/ Gram Stain (12/15/2024 4:10 PM CDT) Body Fluid Culture No Growth. 12/22/2024 11:09 AM CDT [facility] Gram Stain Few WBCs seen. 12/22/2024 11:09 AM CDT [facility] Gram Stain No organisms seen. 12/22/2024 11:09 AM CDT [facility] Fluid (Pleural Fluid, Right) 12/15/2024 4:10 PM CDT 12/15/2024 4:54 PM CDT Colby Callahan MD MICROBIOLOGY - GENERAL ORDERAB LES Final Result Performing Organization Address City/[facility] Co de Phone Number [facility] Unless otherwise noted, all lab tests performed by: Division of Pathology and Laboratory Medicine [address] [place] [phone] * Cell Count BF (12/15/2024 4:10 PM CDT) Appearance Body Fluid Bloody 12/15/2024 10:35 PM CDT [facility] WBC Count Body Fluid 2,766 /mcL 12/15/2024 10:35 PM CDT [facility] RBC Count Body Fluid 20,000 /mcL 12/15/2024 10:35 PM CDT [facility] Cell Count Body Fluid Type Pleural Fluid, Right 12/15/2024 10:35 PM CDT [facility] Fluid (Pleural Fluid, Right) 12/15/2024 4:10 PM CDT Narrative [facility] - 12/15/2024 10:35 PM CDT This assay has been validated for body fluids. No reference ranges have been established. Test results should be interpreted in context with the patient's clinical condition. Pathologist consult is available. Colby Callahan MD BODY FLUIDS AND STOOLS ORDERAB LES Final Result Performing Organization Address [facility] de Phone Number [facility] Unless otherwise noted, all lab tests performed by: Division of Pathology and Laboratory Medicine [address] [place] [phone] * Triglyceride BF (12/15/2024 4:10 PM CDT) Triglyceride Body Fluid 41 mg/dL 12/15/2024 5:45 PM CDT [facility] Fluid (Pleural Fluid, Right) 12/15/2024 4:10 PM CDT 12/15/2024 4:54 PM CDT Narrative [facility] - 12/15/2024 5:45 PM CDT This body fluid test has not been cleared or approved by the FDA. Its performance characteristics have been validated by our laboratory. No reference ranges have been established unless otherwise stated. Comparison of this result with the concentration in the blood (serum or plasma) is recommended. The test result must be interpreted in conjunction with the patient's clinical context. Colby Callahan MD BODY FLUIDS AND STOOLS ORDERAB LES Final Result Performing Organization Address [facility] Phone Number [facility] Unless otherwise noted, all lab tests performed by: Division of Pathology and Laboratory Medicine [address] [place] [phone] * Protein BF (12/15/2024 4:10 PM CDT) Protein Body Fluid 4.8 gm/dL 12/15/2024 5:45 PM CDT [facility] Fluid (Pleural Fluid, Right) 12/15/2024 4:10 PM CDT 12/15/2024 4:54 PM CDT Narrative [facility] - 12/15/2024 5:45 PM CDT This body fluid test has not been cleared or approved by the FDA. Its performance characteristics have been validated by our laboratory. No reference ranges have been established unless otherwise stated. Comparison of this result with the concentration in the blood (serum or plasma) is recommended. The test result must be interpreted in conjunction with the patient's clinical context. Colby Callahan MD BODY FLUIDS AND STOOLS ORDERAB LES Final Result Performing Organization Address [facility] de Phone Number [facility] Unless otherwise noted, all lab tests performed by: Division of Pathology and Laboratory Medicine [address] [place] [phone] * LDH, BF (12/15/2024 4:10 PM CDT) Lactate Dehydrogenase Body Fluid 189 U/L 12/15/2024 5:45 PM CDT [facility] Fluid (Pleural Fluid, Right) 12/15/2024 4:10 PM CDT 12/15/2024 4:54 PM CDT Narrative [facility] - 12/15/2024 5:45 PM CDT This body fluid test has not been cleared or approved by the FDA. Its performance characteristics have been validated by our laboratory. No reference ranges have been established unless otherwise stated. Comparison of this result with the concentration in the blood (serum or plasma) is recommended. The test result must be interpreted in conjunction with the patient's clinical context. Colby Callahan MD BODY FLUIDS AND STOOLS ORDERAB LES Final Result Performing Organization Address [facility] de Phone Number [facility] Unless otherwise noted, all lab tests performed by: Division of Pathology and Laboratory Medicine [address] [place] [phone] * Glucose BF (12/15/2024 4:10 PM CDT) Glucose Body Fluid 123 mg/dL 12/15/2024 5:45 PM CDT [facility] Fluid (Pleural Fluid, Right) 12/15/2024 4:10 PM CDT 12/15/2024 4:54 PM CDT Narrative [facility] - 12/15/2024 5:45 PM CDT This body fluid test has not been cleared or approved by the FDA. Its performance characteristics have been validated by our laboratory. No reference ranges have been established unless otherwise stated. Comparison of this result with the concentration in the blood (serum or plasma) is recommended. The test result must be interpreted in conjunction with the patient's clinical context. Colby Callahan MD BODY FLUIDS AND STOOLS ORDERAB LES Final Result Performing Organization Address [facility] de Phone Number [facility] Unless otherwise noted, all lab tests performed by: Division of Pathology and Laboratory Medicine [address] [place] [phone] * Amylase BF (12/15/2024 4:10 PM CDT) Amylase Body Fluid 22 U/L 12/15/2024 5:45 PM CDT [facility] Fluid (Pleural Fluid, Right) 12/15/2024 4:10 PM CDT 12/15/2024 4:54 PM CDT Narrative [facility] - 12/15/2024 5:45 PM CDT This body fluid test has not been cleared or approved by the FDA. Its performance characteristics have been validated by our laboratory. No reference ranges have been established unless otherwise stated. Comparison of this result with the concentration in the blood (serum or plasma) is recommended. The test result must be interpreted in conjunction with the patient's clinical context. Colby Callahan MD BODY FLUIDS AND STOOLS ORDERAB LES Final Result Performing Organization Address [facility] de Phone Number [facility] Unless otherwise noted, all lab tests performed by: Division of Pathology and Laboratory Medicine [address] [place] [phone] * Albumin BF (12/15/2024 4:10 PM CDT) Albumin Level Body Fluid 3.0 gm/dL 12/15/2024 5:45 PM CDT [facility] Fluid (Pleural Fluid, Right) 12/15/2024 4:10 PM CDT 12/15/2024 4:54 PM CDT Narrative [facility] - 12/15/2024 5:45 PM CDT This body fluid test has not been cleared or approved by the FDA. Its performance characteristics have been validated by our laboratory. No reference ranges have been established unless otherwise stated. Comparison of this result with the concentration in the blood (serum or plasma) is recommended. The test result must be interpreted in conjunction with the patient s clinical context. Colby Callahan MD BODY FLUIDS AND STOOLS ORDERAB LES Final Result Performing Organization Address City/[facility]/ZIP Co de Phone Number [facility] Unless otherwise noted, all lab tests performed by: Division of Pathology and Laboratory Medicine [address] [place] [phone] * [facility] Tumor Portrait (Send out) Material Request (12/15/2024 3:03 PM CDT) Archived Material The test is to be performed on tissue from case [id number]. The case report, slides, and blocks for the cited accession were retrieved from archives. The pathologist examined the candidate slides and selected case material appropriate to the specifications of the ordered molecular analysis. The selected material(s) were prepared and forwarded to reference laboratory where the subject molecular test will be performed. Results will be reported separately. 12/16/2024 2:22 PM CDT [facility] Pathologist Signature 12/16/2024 2:22 PM CDT [facility] Tissue 12/15/2024 3:03 PM CDT 12/15/2024 3:03 PM CDT us Ashlyn AGUILLON MDA IP AP BIOMARKERS Fin al Result Performing Organization Address City/[facility]/ZIP Co de Phone Number [facility] [address] [address], [place] * Urinalysis w/Microscopic if Indicated (12/15/2024 9:22 AM CDT) Urine Appearance Clear Clear 12/16/19 9:45 AM CDT [facility] Urine Color Colorless Colorless, Straw, Yellow, Dark Yellow, Straw-Yellow 12/15/2024 9:45 AM CDT [facility] Urine Specific [place] 1.012 1.003 - 1.035 12/15/2024 9:45 AM CDT [facility] Urine pH 8.0 5.0 - 8.0 12/15/2024 9:45 AM CDT [facility] Urine Glucose Negative Negative mg/dL 12/15/2024 9:45 AM CDT [facility] Urine Ketones Negative Negative mg/dL 12/15/2024 9:45 AM CDT [facility] Urine Blood Negative Negative 12/15/2024 9:45 AM CDT [facility] Urine Protein Negative Negative mg/dL 12/15/2024 9:45 AM CDT [facility] Urine Bilirubin Negative Negative 9:45 AM CDT [facility] Urine Urobilinogen Negative Negative 12/15/2024 9:45 AM CDT [facility] Urine Nitrite Negative Negative 12/15/2024 9:45 AM CDT [facility] Urine Leukocyte Esterase Negative Negative 12/15/2024 9:45 AM CDT [facility] Urine (Urine Clean Catch) Non-blood Collection / Unknown 12/15/2024 9:22 AM CDT 12/15/2024 9:29 AM CDT Narrative [facility] - 12/15/2024 9:45 AM CDT Some reporting parameters within the Urinalysis test have changed due to the implementation of new instrumentation in the Main [place], allowing greater sensitivity of measurement. Urinalysis results reported by the [facility] using existing instrumentation, as well as Urinalysis testing performed manually or by back-up methodology at the main [facility], will remain relatively unchanged. New reporting parameters and units will now be reported for all campuses. No microscopic exam performed; physiochemical findings are negative us Clarisse Can MD URINE ORDERABLES Final Result [facility] Unless otherwise noted, all lab tests performed by: Division of Pathology and Laboratory Medicine [address] [place] [address] [place] [phone] * CT Chest Pulmonary Embolism with Contrast (12/15/2024 9:16 AM CDT) Anatomical Region Laterality Modality Chest Computed Tomogra phy 12/15/2024 9:25 AM CDT Impressions 12/15/2024 10:19 AM CDT No acute pulmonary embolism. Increased large right pleural effusion. New or increased trace left pleural fluid. There are bilateral pleural nodules and nodular pleural thickening, consistent with metastases. A subset of nodules along the right major and minor fissures appear minimally increased. Slight increase in right cardiophrenic and anterior diaphragmatic, and pericardial lymphadenopathy. Similar appearance of bilateral lung nodules, in keeping with metastases. Intensely FDG avid osseous metastases were better delineated on prior PET-CT. ACTIONABLE ITEMS/RECOMMENDATIONS*: None. *An Actionable Finding is a finding that may be unrelated to the original reason for imaging but potentially actionable, meaning further investigation may be necessary. The Actionable Findings Vigilance Unit (AFVU) assists medical providers with responding to additional radiologic findings that are unexpected and potentially actionable. Narrative 12/15/2024 10:19 AM CDT FULL RESULT: Examination: CT CHEST PULMONARY EMBOLISM W CONTRAST on 12/15/2024 9:16 AM. Clinical History: Leukocytosis Mass of pancreas Hyposmolality and/or hyponatremia Indication: dyspnea Comparison: PET-CT dated 11/23/2024 Technique: CT of the chest is performed using intravenous contrast. Findings: Lungs/Airways/Pleura: Increased large right pleural effusion. There is right pleural nodularity, which extends along the right major and minor fissures. For example a solid nodule along the right minor fissure measures 11 mm on image 90, previously 9 mm. Left pleural nodularity is also present as seen along the left major fissure on image 90. There is new or increased trace left pleural fluid. Compressive atelectasis is noted in the right lower lobe. A mixed attenuation nodule in the anterior left upper lobe measures 1.4 cm on image 80, essentially stable. Reidentified bilateral solid lung nodules, a subset of which are perivascular, for example measuring 9 mm in the posterior basal left lower lobe on image 128. No acute pulmonary arterial filling defect. There is faint groundglass in the left upper lobe posteriorly as before on image 75. Neck/Mediastinum/Nodes/Heart: Several nodules in the right thyroid lobe measure up to 5 to 6 mm. Cardiac chambers are normal in size. There is no pericardial effusion. Coronary arterial calcifications are noted. Continued presence of enlarged right cardiophrenic, anterior diaphragmatic, and anterior pericardial lymph nodes, several of which appear slightly increased in size, for example a right anterior diaphragmatic lymph node measures 1.6 cm in short axis on image 128, previously 1.1 cm. A right pericardial lymph node measures 1.7 cm on image 121, previously 1.5 cm. Slight increase in size of a 10 mm right retrotracheal lymph node on image 23 series 5. Hilar lymph nodes measure up to 1.3 cm on the right on image 74. Upper abdomen: Reported separately. Bones/Soft Tissues: Axillary lymph nodes measure up to 8 to 9 mm on the right. There is heterogeneity of the visualized osseous structures; however, extensive FDG avid osseous metastases were better delineated on prior PET-CT. No change in asymmetric soft tissue thickening in the right posterior chest wall on image 199 series 10 which showed FDG uptake on prior PET. Procedure Note Ansley Barnett MD - 12/15/2024 FULL RESULT: Examination: CT CHEST PULMONARY EMBOLISM W CONTRAST on 12/15/2024 9:16 AM. Clinical History: Leukocytosis Mass of pancreas Hyposmolality and/or hyponatremia Indication: dyspnea Comparison: PET-CT dated 11/23/2024 Technique: CT of the chest is performed using intravenous contrast. Findings: Lungs/Airways/Pleura: Increased large right pleural effusion. There isright pleural nodularity, which extends along the right major and minorfissures. For example a solid nodule along the right minor fissuremeasures 11 mm on image 90, previously 9 mm. Left pleural nodularity isalso present as seen along the left major fissure on image 90. There isnew or increased trace left pleural fluid. Compressive atelectasis isnoted in the right lower lobe. A mixed attenuation nodule in the anterior left upper lobe measures 1.4 cmon image 80, essentially stable. Reidentified bilateral solid lungnodules, a subset of which are perivascular, for example measuring 9 mm inthe posterior basal left lower lobe on image 128. No acute pulmonary arterial filling defect. There is faint groundglass inthe left upper lobe posteriorly as before on image 75. Neck/Mediastinum/Nodes/Heart: Several nodules in the right thyroid lobemeasure up to 5 to 6 mm. Cardiac chambers are normal in size. There is nopericardial effusion. Coronary arterial calcifications are noted.Continued presence of enlarged right cardiophrenic, anteriordiaphragmatic, and anterior pericardial lymph nodes, several of whichappear slightly increased in size, for example a right anteriordiaphragmatic lymph node measures 1.6 cm in short axis on image 128,previously 1.1 cm. A right pericardial lymph node measures 1.7 cm on [id number], previously 1.5 cm. Slight increase in size of a 10 mm rightretrotracheal lymph node on image 23 series 5. Hilar lymph nodes measureup to 1.3 cm on the right on image 74. Upper abdomen: Reported separately. Bones/Soft Tissues: Axillary lymph nodes measure up to 8 to 9 mm on theright. There is heterogeneity of the visualized osseous structures;however, extensive FDG avid osseous metastases were better delineated onprior PET-CT. No change in asymmetric soft tissue thickening in the rightposterior chest wall on image 199 series 10 which showed FDG uptake onprior PET. IMPRESSION: No acute pulmonary embolism. Increased large right pleural effusion. New or increased trace leftpleural fluid. There are bilateral pleural nodules and nodular pleuralthickening, consistent with metastases. A subset of nodules along theright major and minor fissures appear minimally increased. Slight increase in right cardiophrenic and anterior diaphragmatic, andpericardial lymphadenopathy. Similar appearance of bilateral lung nodules, in keeping withmetastases. Intensely FDG avid osseous metastases were better delineated on priorPET-CT. ACTIONABLE ITEMS/RECOMMENDATIONS*: None. *An Actionable Finding is a finding that may be unrelated to the originalreason for imaging but potentially actionable, meaning furtherinvestigation may be necessary. The Actionable Findings Vigilance Unit(AFVU) assists medical providers with responding to additional radiologicfindings that are unexpected and potentially actionable. Clarisse Can MD IMG CT ORDERABLES Final Result * CT Abdomen Pelvis with IV Contrast (12/15/2024 9:16 AM CDT) Anatomical Region Laterality Modality Abdomen, Pelvis Computed Tomogra phy 12/15/2024 9:38 AM CDT Impressions 12/15/2024 10:32 AM CDT Apparent slight increase in size of the pancreatic tail mass. Suspected increase in size and number of hepatic and peritoneal/retroperitoneal metastases. Possible slight increase in size of bilateral adrenal nodularity, for which metastases cannot be excluded. Apparent slight increase in size of one of the osseous metastases in the left ischial tuberosity. Persistent intramuscular metastases, which are difficult to accurately compare to prior PET/CT. ACTIONABLE ITEMS/RECOMMENDATIONS*: None. *An Actionable Finding is a finding that may be unrelated to the original reason for imaging but potentially actionable, meaning further investigation may be necessary. The Actionable Findings Vigilance Unit (AFVU) assists medical providers with responding to additional radiologic findings that are unexpected and potentially actionable. Narrative 12/15/2024 10:32 AM CDT FULL RESULT: Examination: CT ABDOMEN PELVIS W CONTRAST on 12/15/2024 9:16 AM. Clinical History: 74 year-old man with leukocytosis, mass of pancreas, and hyposmolality and/or hyponatremia. Indication: Abdominal Pain. Comparison: PET/CT 11/23/2024. Technique: CT of the abdomen and pelvis with intravenous contrast. FINDINGS: Lower Thorax: Please refer to chest CT from same date for further details. Hepatobiliary: No evidence of cirrhosis or definite hepatic steatosis. Suspected increase in size and number of bilobar hepatic metastases with the following references (series 4): * 1.2 cm segment II, not clearly visualized on prior exam (image 24) * 2.3 cm segment VII, previously 1.8 cm (image 47) * 1.6 cm segment V, previously 1.3 cm (image 66) * 1.8 cm segment , previously 1.4 cm (image 69) No biliary ductal dilatation. Nonspecific distention of the gallbladder with possible trace sludge/calculi. Spleen: No splenomegaly or focal lesion. 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 No pancreatic ductal dilatation. Adrenal Glands: Possible slight increase in bilateral adrenal nodularity which measures 1.1 cm on the right and 1.3 cm on the left (series 4 images 49 and 56, respectively). Kidneys, Ureters, and Bladder: Symmetric renal enhancement without hydronephrosis, calculus, or mass. Unremarkable bladder. Gastrointestinal Tract: No distention or wall thickening. Unremarkable appendix. Pelvic Organs: Unchanged size of the prominent prostate with suspected moderate - severe benign prostatic hyperplasia. Peritoneum/Retroperitoneum: No free air or fluid. Slightly increased size and number of suspected scattered peritoneal/retroperitoneal metastases with the following references (series 4): * 1.1 cm in the left mesentery near the splenic flexure of the colon, previously 0.6 cm (image 56) * 0.7 cm along the left paracolic gutter, previously 0.5 cm (image 88) * 0.9 cm in the posterolateral left retroperitoneum, previously 0.4 cm (image 94) * 1.2 cm along Morison's pouch, previously 0.9 cm (image 100) * 0.4 cm along the left paracolic gutter, not clearly visualized on prior exam (image 111) * 1.2 cm in the anterior left pelvis adjacent to the sigmoid, previously 0.7 cm (image 143) Apparent increase in size from 1.3 cm to 1.6 cm of an indeterminate fat density nodular structure in the anterolateral left retroperitoneum (series 4 image 76). Lymph Nodes: No significant change in size of the nonspecific mildly prominent 1.1 cm portacaval lymph node, which was not FDG avid on prior PET/CT (series 4 image 59). Vessels: Unremarkable. Musculoskeletal: Apparent slight increase in size from 0.9 cm to 1.2 cm of the lytic osseous metastasis in the left ischial tuberosity (series 4 image 182). Additional scattered osseous metastases are difficult to delineate by CT. Persistent intramuscular metastases in the left back, bilateral gluteal regions, and proximal left thigh are difficult to accurately compare to prior PET/CT (series 4 images 100, 171, and 203). Unchanged right hip prosthesis. Procedure Note Darryn Contreras MD - 12/15/2024 FULL RESULT: Examination: CT ABDOMEN PELVIS W CONTRAST on 12/15/2024 9:16 AM. Clinical History: 74 year-old man with leukocytosis, mass of pancreas, andhyposmolality and/or hyponatremia. Indication: Abdominal Pain. Comparison: PET/CT 11/23/2024. Technique: CT of the abdomen and pelvis with intravenous contrast. FINDINGS: Lower Thorax: Please refer to chest CT from same date for furtherdetails. Hepatobiliary: No evidence of cirrhosis or definite hepatic steatosis. Suspected increase in size and number of bilobar hepatic metastases withthe following references (series 4): * 1.2 cm segment II, not clearly visualized on prior exam (image 24) * 2.3 cm segment VII, previously 1.8 cm (image 47) * 1.6 cm segment V, previously 1.3 cm (image 66) * 1.8 cm segment , previously 1.4 cm (image 69) No biliary ductal dilatation. Nonspecific distention of the gallbladderwith possible trace sludge/calculi. Spleen: No splenomegaly or focal lesion. Pancreas: Apparent slight increase in size from 6.7 x 4.2 cm to 7.1 x 4.5cm of the pancreatic tail mass which occludes the splenic vein and likelyencases the splenic artery (series 4 image 59). No pancreatic ductaldilatation. Adrenal Glands: Possible slight increase in bilateral adrenal nodularitywhich measures 1.1 cm on the right and 1.3 cm on the left (series 4 [id number] and 56, respectively). Kidneys, Ureters, and Bladder: Symmetric renal enhancement without hydronephrosis, calculus, or mass. Unremarkable bladder. Gastrointestinal Tract: No distention or wall thickening. Unremarkableappendix. Pelvic Organs: Unchanged size of the prominent prostate with suspectedmoderate - severe benign prostatic hyperplasia. Peritoneum/Retroperitoneum: No free air or fluid. Slightly increased size and number of suspectedscattered peritoneal/retroperitoneal metastases with the followingreferences (series 4): * 1.1 cm in the left mesentery near the splenic flexure of the colon,previously 0.6 cm (image 56) * 0.7 cm along the left paracolic gutter, previously 0.5 cm (image 88) * 0.9 cm in the posterolateral left retroperitoneum, previously 0.4 cm(image 94) * 1.2 cm along Morison's pouch, previously 0.9 cm (image 100) * 0.4 cm along the left paracolic gutter, not clearly visualized on priorexam (image 111) * 1.2 cm in the anterior left pelvis adjacent to the sigmoid, previously0.7 cm (image 143) Apparent increase in size from 1.3 cm to 1.6 cm of an indeterminate fatdensity nodular structure in the anterolateral left retroperitoneum(series 4 image 76). Lymph Nodes: No significant change in size of the nonspecific mildlyprominent 1.1 cm portacaval lymph node, which was not FDG avid on priorPET/CT (series 4 image 59). Vessels: Unremarkable. Musculoskeletal: Apparent slight increase in size from 0.9 cm to 1.2 cm ofthe lytic osseous metastasis in the left ischial tuberosity (series 4image 182). Additional scattered osseous metastases are difficult todelineate by CT. Persistent intramuscular metastases in the left back,bilateral gluteal regions, and proximal left thigh are difficult toaccurately compare to prior PET/CT (series 4 images 100, 171, and 203).Unchanged right hip prosthesis. IMPRESSION: Apparent slight increase in size of the pancreatic tail mass. Suspected increase in size and number of hepatic andperitoneal/retroperitoneal metastases. Possible slight increase in size of bilateral adrenal nodularity, forwhich metastases cannot be excluded. Apparent slight increase in size of one of the osseous metastases in theleft ischial tuberosity. Persistent intramuscular metastases, which aredifficult to accurately compare to prior PET/CT. ACTIONABLE ITEMS/RECOMMENDATIONS*: None. *An Actionable Finding is a finding that may be unrelated to the originalreason for imaging but potentially actionable, meaning furtherinvestigation may be necessary. The Actionable Findings Vigilance Unit(AFVU) assists medical providers with responding to additional radiologicfindings that are unexpected and potentially actionable. Clarisse Can MD IMG CT ORDERABLES Final Result * (ABNORMAL) Osmolality, Serum (12/15/2024 7:00 AM CDT) Osmolality 268(L) 275 - 300 mOsm/kg 12/15/2024 7:59 AM CDT [facility] Comment:Units in mOsm per kg of water. Blood Peripheral blood specimen / Unknown Venipuncture / Unknown 12/15/2024 7:00 AM CDT 12/15/2024 7:04 AM CDT Clarisse Can MD LAB BLOOD ORDERABLES Final Res ult Performing Organization Address City/[facility]/ZIP Co de Phone Number [facility] Unless otherwise noted, all lab tests performed by: Division of Pathology and Laboratory Medicine [address] [place] [id number] * POC Troponin I (EC Only) (12/15/2024 6:48 AM CDT) [facility] POC CTNI <0.04 0.00 - 0.08 ng/mL 12/15/2024 6:50 AM CDT [facility] Comment: Result is outside of instrument's reportable range. For results not consistent with patient's clinical condition, it is recommended to confirm the test result by sending a new specimen to the core laboratory where a different methodology will be employed. Blood 12/15/2024 6:48 AM CDT 12/15/2024 6:50 AM CDT Narrative [facility] - 12/15/2024 6:50 AM CDT This cTnI test is performed by the [id number] analyzer method, and the result may be different from the Clinical Laboratory Method. Abnormal test results are recommended for confirmatory test by Clinical laboratory method. Patients with normal test results but clinically suspicious for acute myocardial infarction should be tested by Clinical Laboratory method. Method description: The Troponin I (cTnI) uses a two-site enzyme-linked immunosorbent assay (JL) method. Antibodies specific for human cardiac troponin I (cTnI) are located on an electrochemical sensor fabricated on a silicon chip. The whole blood is brought into contact with the sensors allowing the enzyme conjugate to dissolve into the sample. The enzyme bound to the antibody/antigen/antibody sandwich cleaves the substrate releasing an electrochemically detectable product. The electrochemical (amperometric) sensor measures this enzyme product which is proportional to the concentration of cTnI within the sample. us Clarisse Can MD POCT ORDERABLES - DEVICE Final Result Performing Organization Address City/[facility]/ZIP Co de Phone Number [facility] Unless otherwise noted, all lab tests performed by: Division of Pathology and Laboratory Medicine [address] [place] [phone] * (ABNORMAL) POC Chem 8 without Hemoglobin and Hematocrit (12/15/2024 6:31 AM CDT) POC Sodium 128(L) 138 - 146 mmol/L 12/15/2024 6:35 AM CDT [facility] POC Potassium 3.6 3.5 - 4.9 mmol/L 12/15/2024 6:35 AM CDT [facility] POC Chloride 91(L) 98 - 109 mmol/L 12/15/2024 6:35 AM CDT [facility] POC VTCO2 26 24 - 29 mmol/L 12/15/2024 6:35 AM CDT [facility] POC Anion Gap 15 10 - 20 mmol/L 12/15/2024 6:35 AM CDT [facility] POC BUN 19 8 - 26 mg/dL 12/15/2024 6:35 AM CDT [facility] POC Creatinine 0.8 0.6 - 1.3 mg/dL 12/15/2024 6:35 AM CDT [facility] Comment:Medications, especia lly hydroxyurea or supplements, such as ascorbate, can interfere with test results causing a falsely and significantly higher result than expected. If a problem is suspected with a patient's result, a sample should be sent to the laboratory for confirmatory testing. POC I Glu 129(H) 70 - 99 mg/dL 12/15/2024 6:35 AM CDT [facility] Comment:Medications, especia lly hydroxyurea or supplements, such as ascorbate, can interfere with test results causing a falsely and significantly higher result than expected. If a problem is suspected with a patient's result, a sample should be sent to the laboratory for confirmatory testing. POC Ionized Calcium 1.17 1.12 - 1.32 mmol/L 12/15/2024 6:35 AM CDT [facility] POC Sample Type Venous 6:35 AM CDT [facility] POC eGFR 93 >=60 mL/min/1.7 3 sq. m 12/15/2024 6:35 AM T [facility] Comment: The eGFRcr is calculated with the 2020 CKD-EPI creatinine equation using creatinine, patient's age, and sex for adults 18 years of age and older. Other factors, especially muscle mass, may affect accuracy and need to be considered. According to the Kidney Disease: Improving Global Outcomes (KDIGO) CKD Work Group 2012 Clinical Practice Guideline, chronic kidney disease (CKD) is defined as the abnormalities of kidney structure or function, present for more than 3 months, with implications for health. CKD should be classified by cause, GFR category, and albuminuria category. KDIGO guidelines provide the following GFR categories. Stage / Description / GFR mL/min/1.73 m2: G1* / Normal or high / >= 90 G2* / Mildly decreased / 60-89 G3a / Mildly to moderately decreased / 45-59 G3b / Moderately to severely decreased / 30-44 G4 / Severely decreased / 15-29 G5 / Kidney failure / <15 *In the absence of evidence of kidney damage, neither G1 nor G2 fulfill criteria for CKD. Blood 12/15/2024 6:31 AM CDT 12/15/2024 6:35 AM CDT [facility] - 12/15/2024 6:35 AM CDT Method description: The i-STAT is an analyzer used for in vitro quantification of various analytes in whole blood. The device uses a single disposable cartridge which contains microfabricated sensors, a calibration solution, fluidics system, and a waste chamber. Each test cartridge contains chemically sensitive biosensors on a silicon chip that are configured to perform specific tests. The microfabricated sensors measure analyte concentration by an electrochemical assay. us Poct Unknown Provider POINT OF CARE TEST ORDERAB LES Final Result [facility] Unless otherwise noted, all lab tests performed by: Division of Pathology and Laboratory Medicine [address] [place] [address] [place] [id number] * Fractionated Bilirubin (12/15/2024 6:27 AM CDT) Bilirubin Direct 0.2 0.0 - 0.2 mg/dL 12/15/2024 7:09 AM CDT [facility] Comment:Indocyanine Green (I CG) may cause falsely elevated bilirubin results. Total and direct bilirubin must not be measured from samples containing indocyanine green. Bilirubin Indirect 0.3 0.0 - 1.0 mg/dL 12/15/2024 7:09 AM CDT [facility] Bilirubin Total 0.5 0.0 - 1.2 mg/dL 12/15/2024 7:09 AM CDT [facility] Comment: Indocyanine Green (ICG) may cause falsely elevated bilirubin results. Total and direct bilirubin must not be measured from samples containing indocyanine green. False elevation of total bilirubin can be seen in patients with IgG concentrations above 28 g/L. Indocyanine Green (ICG) may cause falsely elevated bilirubin results. Total and direct bilirubin must not be measured from samples containing indocyanine green. False elevation of total bilirubin can be seen in patients with IgG concentrations above 28 g/L. Blood Peripheral blood specimen / Unknown Venipuncture / Unknown 12/15/2024 6:27 AM CDT 12/15/2024 6:36 AM CDT Clarisse Can MD LAB BLOOD ORDERABLES Final Res ult Performing Organization Address City/[facility]/ZIP Co de Phone Number [facility] Unless otherwise noted, all lab tests performed by: Division of Pathology and Laboratory Medicine [address] [place] [id number] * (ABNORMAL) VB Lactate (12/15/2024 6:27 AM CDT) Venous Lactate 1.7(H) 0.5 - 1.6 mmol/L 12/15/2024 6:39 AM CDT [facility] Oxygen FLOW Rate/ FiO2 12/15/2024 6:39 AM CDT [facility] O2 Therapy 12/15/2024 6:39 AM CDT [facility] Blood Peripheral blood specimen / Unknown Venipuncture / Unknown 12/15/2024 6:27 AM CDT 12/15/2024 6:37 AM CDT Clarisse Can MD LAB BLOOD ORDERABLES Final Res ult [facility] Unless otherwise noted, all lab tests performed by: Division of Pathology and Laboratory Medicine [address] [place] [id number] * Lipase (12/15/2024 6:27 AM CDT) Lipase Level 29 13 - 60 U/L 12/15/2024 7:09 AM CDT [facility] Blood Peripheral blood specimen / Unknown Venipuncture / Unknown 12/15/2024 6:27 AM CDT 12/15/2024 6:36 AM CDT Narrative [facility] - 12/15/2024 7:09 AM CDT Reference range established based on adult population Clarisse Can MD LAB BLOOD ORDERABLES Final Res ult [facility] Unless otherwise noted, all lab tests performed by: Division of Pathology and Laboratory Medicine [address] [place] [id number] * Amylase (12/15/2024 6:27 AM CDT) Amylase Level 40 28 - 100 U/L 12/15/2024 7:09 AM CDT [facility] Blood Peripheral blood specimen / Unknown Venipuncture / Unknown 12/15/2024 6:27 AM CDT 12/15/2024 6:36 AM CDT Clarisse Can MD LAB BLOOD ORDERABLES Final Res ult [facility] Unless otherwise noted, all lab tests performed by: Division of Pathology and Laboratory Medicine [address] [place] [address] * Focused LB V1 (DNA) Interpretation and Result (12/14/2024 11:09 AM CDT) Interpretation [facility] SAM [id number] Focused LB V1(DNA) A next generation sequencing (NGS)-based analysis for the detection of somatic mutations hotspot regions in 45 genes was performed on the cell free DNA (cfDNA) isolated from plasma in our CLIA-certified molecular diagnostics laboratory. Variants of likely somatic origin (somatic mutations) Gene DNA Protein Location VAF Type KRAS c.35G>A p.G12D Exon 2 8% [facility] - [facility] Clinical test requisition for mutation studies on the following genes was received: EGFR, KRAS COMMENTS: Cancer type: Adenocarcinoma The selection and classification of variants for reporting incorporates review of available clinicopathologic information, correlation with current clinical presentation, any consultations with additional healthcare providers and exercise of medical judgement by the sign-out pathologist. Additional information on genes/variants with findings identified on this assay: Computed VAF (variant allelic frequency) is the percentage ratio of number of unique molecular family reads that contain the specified mutation to the total number of unique molecular family reads at the corresponding genomic position. Nominally, computed VAF percentages provide an estimate of the relative proportion of wild-type and mutant alleles at specified genomic positions. The computed allelic frequency may be significantly impacted by a number of variables such as relative tumor shedding, loss of heterozygosity or presence of copy number variations, sequencing platform-specific or bioinformatics related allelic bias, and non-linearity at low molecule counts. Clinical decision thresholds based on VAF values have not been established. Any use of computed VAF to infer subclonality or response to therapy should therefore be approached with great caution, and in correlation with patient s overall clinical presentation. Gene Genomic Variant COSMIC dbSNP ClinVar KRAS [id number] C>T c.35G>A p.G12D [id number] Link to COSMIC: https://cancer.[email or web address].ac.[email or web address]/cosmic Link to dbSNP: https://www.ncbi.nl m.nih.gov/snp Link to ClinVar: https://www.ncbi.nl .nih.gov/clinvar METHODOLOGY: Test Description: Focused LB Test is a next generation sequencing (NGS) based CLIA assay using circulating cell-free DNA (cfDNA) obtained from plasma to screen for single nucleotide variants (SNVs) and insertions/deletion s (indels) in hotspots regions of 45 genes (Table 1). Routinely collected blood samples are the accepted specimen types. Twenty-six nanograms of cfDNA is recommended, with a minimum accepted of 6.6 nanograms, which undergoes NGS using the BuyItRideIt Sequencer, which integrates library preparation with Yemeksepeti library chemistry, template preparation, and sequencing into a single-day, single instrument automated run. Focused LB Test provides nucleic fvly-mk-vgokxpt (up to 4 cfDNA samples/run) using the Cenify Software that streamlines the NGS workflow by integrating the iorno-ui-zdmnuc workflow within a single software system. Focused LB Test uses the Sunshine Assay GX that enables simultaneous detection of biomarkers across 50 genes. This assay uses UMIs tag original double-stranded DNA (dsDNA), facilitating statistical reconstruction of reads sequenced as replicates from a single-amplified genome. Data analysis is performed by Cenify Software version 6.8.1.1. Reported somatic mutations are identified by comparison to the human genomic reference sequence GRCh37/hg19 and reviewed in a laboratory-develope d variant review, filtering and annotation tool called Crumpet Cashmere version 2.1.0.9. Detailed information about the signal-processing, base calling, alignment and variant calling detection algorithms are available upon request. Focused LB Test is intended to provide tumor mutation profiling in accordance with institutional guidelines in oncology for patients with solid malignant neoplasms. Report annotation and software: A post-variant calling analysis and annotation tool, Crumpet Cashmere version 2.1.0.9, was used in the construction of this report. The following additional software tools were utilized in the experimental setup and bioinformatic analysis: SkyRank Software version 6.8.1.1. Detailed information about the signal-processing, base calling, alignment, and variant calling algorithms are available upon request. Test performance specifications: For this assay, sensitivity of detection is related in part to depth of coverage and the amount of input cfDNA. We determined the effective lower limit of detection of this assay (analytical sensitivity) for single nucleotide variations and insertions/deletion s to be 0.5% mutation allelic frequency (MAF) for 26.6ng cfDNA input by taking into consideration the depth of coverage at a given base. Limitations of the test: - Multiple factors influence the clinical sensitivity and specificity of this assay. For complete evaluation of a tumor s molecular profile, comparison of this liquid biopsy s findings with the results from any corresponding tissue sequencing is advised in conjunction with all available clinicopathologic information. - A lack of detectable genomic aberrations may be due to low levels of tumor DNA in circulation. In such cases, adequate genomic profiling may require testing of tissue. - The primary purpose of this panel is to detect somatic mutations in genes involved in oncogenesis of this patient s tumor. This panel is not designed to detect germline variants, and this test s results should not be used to assess for germline variants for hereditary cancer syndromes. If a hereditary cancer syndrome is suspected, dedicated germline testing should be performed. - The assay is designed to detect point mutations and insertion/deletions of hotspots. - Silent mutations (mutations that do not result in an amino acid change) are not reported. - Variants detected below the Limit of Detection (LoD) that are not deemed to be confirmable by independent, orthogonal methods may be excluded as the clinical significance and reliability of such low-level mutation calls is not clear. - Quality and quantity of cfDNA can influence variant detection. - False negative results can be obtained at low cfDNA inputs. - Since hematopoietic cells can also contribute to cfDNA, the possibility that any mutation detected may represent clonal hematopoiesis of indeterminate potential (CHIP) or a clonal hematologic disorder cannot be ruled out. Sequencing coverage of the genes: The following table describes the extent and adequacy of coverage for ordered genes only. Covered genes/exons/codons are defined as those having total coverage depth of greater than or equal to 600 molecular families (minimum 600x molecular coverage). Mutations in ordered genes outside the optimally covered regions listed below may be detected with diminished sensitivity and cannot be ruled out. Coverage information for non-ordered genes for this sample is complex and lengthy but may be requested from the laboratory if required for clinical care or correlative purposes. Coverage for ordered genes and codon(s) tested with a minimum of 600x coverage Gene Exons (codons) tested AKT1 (NM_005163) 3 (16-24), 3 (40-55), 4 (75-88) AKT2 (NM_001626) 3 (16-24), 11 (321-335) AKT3 (NM_005465) 3 (16-21), 3 (38-52), 4 (66-86) ALK (NM_004304) 2 (223-226), 21 (5464-9942), 22-23 (5121-0799), 23 (2100-4305), 24-25 (6988-8578), 25-26 (2207-5430), 27 (1597-3096), 29 (7965-8775), 29 (4359-1239) AR (NM_000044) 2-3 (579-595), 4 (470-637), 4 (387-089), 5 (531-745), 6 (773-781), 6 (812-817), 7 (864-869), 8 (874-899) ARAF (NM_001654) 7 (198-225) BRAF (NM_004333) 11 (455-474), 15 (581-603) CDK4 (NM_000075) 2 (17-30) CDKN2A (NM_000077) 2 (51-77), 3 (153-157) CHEK2 (NM_007194) 11 (369-388), 15 (521-532) CTNNB1 (NM_001904) 3 (29-50), 7 (328-339) EGFR (NM_005228) 3 (105-113), 7 (281-297), 11 (426-433), 12 (447-469), 12 (489-500), 15 (588-601), 18 (706-726), 19 (735-760), 20 (762-777), 20 (787-814), 21 (833-862), 24 (975-982), 25 (6395-5674), 26 (0776-4282) ERBB2 (NM_004448) 8 (308-327), 9 (371-383), 12 (489-505), 17 (655-681), 18 (729-736), 19-20 (752-779), 20 (795-808), 21 (832-849), 21 (863-873), 22 (890-906), 25 (3466-0526) ERBB3 (NM_001982) 2 (49-63), 3 (90-106), 4 (181-183), 7 (282-292), 8 (294-305), 9 (330-338), 14 (561-568), 16 (631-638), 20 (802-820), 26 (6831-7728) ERBB4 (NM_005235) 18 (700-713) ESR1 (NM_000125) 4 (300-316), 5 (376-398), 7 (459-465), 8 (532-558) FGFR1 (NM_015850) 4 (141-148), 7 (247-257), 10 (427-430), 12-13 (545-560), 14 (613-625), 14 (651-657) FGFR2 (NM_000141) 5 (152-156), 7 (250-257), 7-8 (305-320), 9 (373-397), 12 (543-555), 13 (552-568), 13 (60621), 14 (999-559), 15 (891-999), 18 (709-423) FGFR3 (NM_000142) 3 (37-47), 7 (247-270), 9 (368-402), 11 (471489), 13 (933-551), 14 (112-289), 15-16 (307-953), 16 (140-555) FGFR4 (NM_022963) 11 (504-516) FLT3 (NM_004119) 20 (829-841) GNA11 (NM_002067) 4 (166-191), 5 (206-219) GNAQ (NM_002072) 4 (173-185), 5 (205-226) GNAS (NM_000516) 8 (196-206), 9 (220-232) HRAS (NM_005343) 2 (8-20), 3 (44-66) IDH1 (NM_005896) 4 (60-77), 4 (128-135), 6 (174-187), 7 (278-284) IDH2 (NM_002168) 4 (131-154), 4 (166-178), 7 (302-323) KIT (NM_000222) 8 (412-426), 9 (497-514), 10 (520-548), 11 (550-580), 13 (640-660), 14 (667-697), 17 (788-799), 17-18 (815-845) KRAS (NM_004985) 2 (4-17), 3 (57-66), 4 (105-122), 4-5 (138-155) MAP2K1 (NM_002755) 2 (49-63), 3 (113-134), 6 (198-221) MAP2K2 (NM_030662) 2 (31-36), 3 (119-146) MET (NM_001127500) 3 (457-464), 5 (559-567), 6 (617-621), 9 (748-755), 10 (799-806), 12 (921-928), 14 (981-989), 14 (3967-4349), 16 (6991-1458), 18 (4598-9391) MTOR (NM_004958) 30 (7497-8603), 30 (3289-5593), 39 (3775-2734), 40 (7424-2904), 43 (2607-6630), 43 (7363-7111), 45 (8780-0274), 47 (1877-6411), 53 (4609-4820) NRAS (NM_002524) 2 (7-19), 3 (56-69), 4 (112-124), 4 (140-150) NTRK1 (NM_002529) 14 (570-597), 15 (659-673) NTRK2 (NM_006180) 18 (595-622), 18 (632-646), 19 (709-712) NTRK3 (NM_002530) 16 (600-624), 17 (693-705) PDGFRA (NM_006206) 11 (521-543), 12 (554-583), 14 (650-665), 18 (839-854) PIK3CA (NM_006218) 2 (23-43), 2 (64-88), 2 (100-114), 3 (118-123), 5 (335-351), 8 (418-424), 10 (532-553), 11 (575-582), 20 (971-979), 21 (0404-7488), 21 (1257-0144) PTEN (NM_000314) 1 (9-27), 2 (37-52), 4 (70-79), 5 (125-141), 5 (154-164), 6 (168-185), 6-7 (201-224), 8-9 (334-355) RAF1 (NM_002880) 7 (245-259) RET (NM_020975) 10-11 (614-637), 13 (762-771), 13 (784-795), 14 (798-814), 15 (881-905), 16 (911-924) ROS1 (NM_002944) 36 (1047-4535), 37 (6972-2069), 38 (2900-7075) SMO (NM_005631) 6 (400-414), 8 (455-482), 9 (515-542) TP53 (NM_000546) 5 (130-156), 5-6 (167-197), 6 (211-224), 7 (232-258), 8 (261-290) APPENDIX: Table 1: Genes of interest for SNVs and INDELs AKT1 AKT2 AKT3 ALK AR ARAF BRAF CDK4 CDKN2A CHEK2 CTNNB1 EGFR ERBB2 ERBB3 ERBB4 ESR1 FGFR1 FGFR2 FGFR3 FGFR4 FLT3 GNA11 GNAQ GNAS HRAS IDH1 IDH2 KIT KRAS MAP2K1 MAP2K2 MET MTOR NRAS NTRK1 NTRK2 NTRK3 PDGFRA PIK3CA PTEN RAF1 RET ROS1 SMO TP53 DISCLAIMER: This test was developed, and its performance characteristics determined by the [facility] Laboratory ([facility]) at the [facility] [place]. It has not been cleared by the U.S. Food and Drug Administration. However, such approval is not required for clinical implementation, and the test results on the ordered genes have been shown to be clinically useful. This laboratory is CAP accredited and CLIA certified to perform high complexity molecular testing for clinical purposes. 12/16/2024 2:24 PM CDT [facility] HEMATOPATH [facility] Pathologist Signature . Test performed on 12/16/2024 12/16/2024 2:24 PM CDT MOLECULAR DIAGNOSTICS Blood Peripheral blood specimen / Unknown Venipuncture / Unknown 12/14/2024 11:09 AM CDT 12/14/2024 11:21 AM CDT Narrative This result has genomic variants that were not included in this document. Ashlyn AGUILLON MDA HP MOLECULAR DIAGNOS TICS (FELI HARRISON) Final Result [facility] H[facility] MOLECULAR DIAGNOSTICS [facility] Molecular Diagnostics Laboratory [address] [place] [address] * ZINVITAE (12/14/2024 11:09 AM CDT) ZINVITAE Shipped 12/15/2024 10:33 AM CDT INVITAE Comment:Specimen for Genetic testing was obtained, processed and sent out to the Performing Reference Laboratory. Refer to the performing lab for results. Blood (Other) Venipuncture / Unknown 12/14/2024 11:09 AM CDT 12/14/2024 11:18 AM CDT Narrative INVITAE - 12/15/2024 10:33 AM CDT Tracking #: [id number] us Catracho Oseguera MD PhD LAB BLOOD ORDERABLES Final Resul t Performing Organization Address City/[facility]/ZIP Co de Phone Number INVITAE [address] [address], * IHC Workup (12/14/2024 10:02 AM CDT) Only the most recent of3 resultswithin the time period is included. Tissue 12/14/2024 10:0 2 AM CDT 12/14/2024 10:02 AM CDT Ashlyn AGUILLON MDA AP BIOMARKER ORDERAB LES Final Result [facility] AP LABS [facility] [address] [place] [address], [place] * MSI NORMAL (12/14/2024 7:56 AM CDT) Blood Peripheral blood specimen / Unknown Venipuncture / Unknown 12/14/2024 7:56 AM CDT 12/14/2024 7:58 AM CDT Ashlyn AGUILLON MDA CP BIOMARKER WORKUPS Final Result MOLECULAR DIAGNOSTICS [facility] Molecular Diagnostics Laboratory [address] [place] [address] * MD SHERMAN Blood Control (12/14/2024 7:56 AM CDT) Blood Peripheral blood specimen / Unknown Venipuncture / Unknown 12/14/2024 7:56 AM CDT 12/14/2024 7:58 AM CDT Ashlyn AGUILLON MDA IP HP MOLECULAR DIAG IF ORDERABLES Final Result Performing Organization Address [facility] Co de Phone Number MOLECULAR DIAGNOSTICS [facility] Molecular Diagnostics Laboratory [address] [place] [id number] * (ABNORMAL) UGT1A1 TA Repeat Genotype (12/14/2024 7:56 AM CDT) [facility] Signature UGT1A1 Genotype SEE COMMENTS 12/23/2024 11:41 AM CDT [facility] 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 Increased risk for toxicity and/or hyperbilirubinemia is not expected with atazanavir, belinostat, dolutegravir, pazopanib, or sacituzumab govitecan-hziy. The medication label should be consulted for dosing recommendations. In addition, this genotype indicates carrier status for Gilbert syndrome but is not expected to cause marked congenital unconjugated hyperbilirubinemia. Additional Information SEE COMMENTS 12/23/2024 11:41 AM CDT [facility] Comment: A portion of the testing process was performed at [facility] site [id number]. Method SEE COMMENTS 12/23/2024 11:41 AM [facility] Comment: Genotyping is performed using a PCR-based 5'-nuclease assay. Fluorescently labeled detection probes anneal to the target DNA. PCR is used to amplify the segment of DNA that contains the polymorphism. If the detection probe is an exact match to the target DNA, the 5'-nuclease polymerase degrades the probe, the restrooms or lounges maid dye is released from the effects of the quencher dye, and a fluorescent signal is detected. Genotypes are assigned based on the allele-specific fluorescent signals that are detected. (TaqMan SNP Genotyping Assays User Guide, [employer]) Disclaimer SEE COMMENTS 12/23/2024 11:41 AM [facility] Comment: Targeted analysis of the following UGT1A1 alleles was performed by a polymerase chain reaction (PCR)-based 5'-nuclease assay using fluorescently labeled detection probes. The variants detected (c.-2951A>G, c.-364C>T, c.-106T>C) are in linkage disequilibrium with the TA repeat alleles, TA5 or *36: c.-41_-40delTA ([id number]),TA7 or *28: c.-41_-40dupTA (g. [id number]). The cDNA positions are provided using [id number] as a reference; genomic coordinates are based on GRCh37. In addition, this assay detects *6 (c.211G>A). The TA7 or *28: c.-41_-40dupTA (g. [id number]) and the TA8 or *37: c.-43_-40dupTATA (g.[id number]) are both in linkage disequilibrium with c.-2951A>G and c.-364C>T. Therefore, this test is unable to distinguish between TA7 and TA8.TA7 and TA8 are thought to have the same impact on function, and the TA7 is present the vast majority of the time in these instances, so in the presence of the tagging variants, the TA7 is reported. c.-106T>C is associated with the TA5 or *36: c.-41_-40delTA (g.[id number]) variant. This test does not detect or report variants other than the TA5 (*36), TA7 (*28), and *6 alleles. Numerous additional variants have been described that impair UGT1A1 activity. Results should be interpreted in the context of clinical findings, family history, and other laboratory testing. A negative test result does not exclude risk for adverse drug reactions with LEK5O9-llvfgpnwrcg drugs or congenital unconjugated hyperbilirubinemia. If results do not match clinical findings, consider full gene sequencing of the UGT1A1 gene. Drug metabolism may be affected not only by variants in the UGT1A1 gene, but also by other drug-drug interactions. CAUTIONS: Rare variants may be present that could lead to false negative or positive results. If results obtained do not match the clinical findings (phenotype), additional testing should be considered. Samples may contain donor DNA if obtained from patients who received non-leukoreduced blood transfusions or allogeneic hematopoietic stem cell transplantation. Results from samples obtained under these circumstances may not accurately reflect the recipient's genotype. For individuals who have received blood transfusions, the genotype usually reverts to that of the recipient within 6 weeks. For individuals who have received allogeneic hematopoietic stem cell transplantation, a pre-transplant DNA specimen is recommended for testing. UGT1A1 genetic test results in patients who have undergone liver transplantation may not accurately reflect the patient's UGT1A1 status. This test was developed and its performance characteristics determined by [facility] in a manner consistent with CLIA requirements. This test has not been cleared or approved by the U.S. Food and Drug Administration. Reviewed by Jay Churchill MD 12/23/2024 11:41 AM CDT [facility] Comment: Test Performed by: [address] [address] [employer]: Saira Beltran Ph.D.; CLIA# [id number] Blood Peripheral blood specimen / Unknown Venipuncture / Unknown 12/14/2024 7:56 AM CDT 12/14/2024 7:58 AM CDT us Ashlyn AGUILLON LAB BLOOD ORDERABLES Fin al Result [facility] * DPYD Full Gene Sequencing (12/14/2024 7:56 AM CDT) [facility] DPYD Total Activity Score 2 12/28/2024 12:15 PM CDT [facility] DPYD Phenotype Normal metabolizer 12/28/2024 12:15 PM T [facility] DPYD Result Details SEE COMMENTS 12:15 PM [facility] Comment:RESULT: No reportabl e variants were detected in the DPYD gene. DPYD Interpretation SEE COMMENTS 12:15 PM T [facility] Comment: No reportable variants were detected in DPYD (activity score of 2). Normal dosing of fluoropyrimidines is supported by this genotype. In addition, there is no evidence of carrier status or affected status for autosomal recessive DPD deficiency. This result decreases the likelihood of, but does not rule out, the presence of a pathogenic DPYD variant. Clinical correlation is recommended. A genetic consultation may be of benefit. Note: in an individual with no reportable variants the expected combined activity score is 2. DPYD Method SEE COMMENTS 12/28/2024 12:15 PM [facility] Comment: Bidirectional fluorescent DNA sequence analysis was used to test for the presence of variants in the DPYD gene (transcript [id number]; build GRCh37 (hg19)) for all exons and intron-exon boundaries, as well as the intronic region including the c.1129-5954C>G ([id number]) variant. DPYD Disclaimer SEE COMMENTS 12:15 PM [facility] Comment: Some detected variants may not have been studied in the context of fluoropyrimidine treatment. Evaluation and categorization of variants is performed using available literature and variant classification guidelines. At this time, it is not standard practice for the laboratory to systematically re-review likely pathogenic variants or variants of uncertain significance that are detected and reported. The laboratory encourages health care providers to contact the laboratory at any time to learn how the status of a particular variant may have changed over time. Consultation with a genetics professional should be considered for interpretation of this result. A list of benign and likely benign variants identified for this patient is available from the laboratory upon request. Multiple in silico evaluation tools may be used to assist in the interpretation of these results and predictions made by these tools may global climate change analyst time. Patients with negative DPYD sequencing results may still experience toxicity after fluoropyrimidine treatment either due to genetic variation that is not identified by the methods utilized here or due to other factors. In addition to the aforementioned pharmacogenomics implications, autosomal recessive DPD deficiency has a wide range of severity, with neurological problems in some individuals and no signs or symptoms in others. This test was developed, and its performance characteristics determined, by [facility] in a manner consistent with CLIA requirements. This test has not been cleared or approved by the U.S. Food and Drug Administration. CAUTIONS: Rare variants may be present that could impact results. This assay may not detect large deletions or rearrangements that may affect DPD protein expression. If more than one heterozygous variant is detected, the cis/trans relationship (i.e. whether the variants are inherited on the same or opposite alleles) of these variants cannot be definitively determined with the methods used by this assay, but would be presumed to be in trans (on opposite alleles) for the purposes of result interpretation. Therefore, test results should be interpreted in the context of clinical findings, family history, and other laboratory data. Samples may contain donor DNA if obtained from patients who received non-leukocyte reduced blood transfusions or allogeneic hematopoietic stem cell transplantation. Results from samples obtained under these circumstances may not accurately reflect the recipient's genotype. For individuals who have received blood transfusions, the genotype usually reverts to that of the recipient within 6 weeks. For individuals who have received allogeneic hematopoietic stem cell transplantation, a pretransplant DNA specimen is recommended for testing. DPYD genetic test results in patients who have undergone liver transplantation may not accurately reflect the patient's DPD status. DPYD Additional Information SEE COMMENTS 12/28/2024 12:15 PM CDT [facility] Comment: A portion of the testing process was performed at [facility] site #[id number] DPYD Reviewed by SEE COMMENTS 2024 12:15 PM CDT [facility] Comment: RESULT: Sharri Steel, Ph.D. Test Performed by: [address] [address] [employer]: Saira Beltran Ph.D.; CLIA# [id number] Blood Peripheral blood specimen / Unknown Venipuncture / Unknown 12/14/2024 7:56 AM CDT 12/14/2024 7:58 AM CDT Ashlyn Nelson Olya AGUILLON LAB BLOOD ORDERABLES Fin al Result [facility] * (ABNORMAL) Vitamin D 25OH (12/14/2024 7:56 AM CDT) Pathologist [facility] Vitamin D 25 OH 26(L) 30 - 100 ng/mL 12/14/2024 9:27 AM CDT [facility] Blood Peripheral blood specimen / Unknown Venipuncture / Unknown 12/14/2024 7:56 AM CDT 12/14/2024 7:58 AM CDT Narrative [facility] - 12/14/2024 9:27 AM CDT Reference Range: Deficiency: <=20 ng/mL Insufficiency: 21-29 ng/mL Sufficiency: 30-100 ng/mL Potential toxicity: >100 ng/mL Ashlyn Nelson Olya AGUILLON LAB BLOOD ORDERABLES Fin al Result [facility] Unless otherwise noted, all lab tests performed by: Division of Pathology and Laboratory Medicine [address] [place] [address] * [place] 125 (12/14/2024 7:56 AM CDT) [facility] Cancer Antigen 125 148.9 U/mL 12/14/2024 8:59 AM CDT [facility] Blood Peripheral blood specimen / Unknown Venipuncture / Unknown 12/14/2024 7:56 AM CDT 12/14/2024 7:58 AM CDT Narrative [facility] - 12/14/2024 8:59 AM CDT Results greater than 11,500.0 U/mL may not be reliable due to matrix effect with extended dilution as it exceeds the dredge hand's recommended limit. Caution should be exercised when interpreting such values and done in conjunction with clinical context. This test is measured by electrochemiluminescence immunoassay on [employer] [place] immunoassay analyzers. Results obtained in different methods are not interchangeable. Reference intervals are not available for male patients. Results should be interpreted in conjunction with clinical context. Ashlyn AGUILLON LAB BLOOD ORDERABLES Fin al Result Performing Organization Address City/[facility]/ZIP Co de Phone Number [facility] Unless otherwise noted, all lab tests performed by: Division of Pathology and Laboratory Medicine [address] [place] [id number] * (ABNORMAL) CEA (12/14/2024 7:56 AM CDT) Only the most recent of2 resultswithin the time period is included. Carcinoembryonic Antigen 37.1(H) <=3.8 ng/mL 12/14/2024 8:59 AM CDT [facility] Blood Peripheral blood specimen / Unknown Venipuncture / Unknown 12/14/2024 7:56 AM CDT 12/14/2024 7:58 AM CDT Narrative [facility] - 12/14/2024 8:59 AM CDT Reference Ranges (age 20-69 years): Non-smoker: <= 3.8 ng/mL Smoker: <= 5.5 ng/mL This test is measured by electrochemiluminescence immunoassay on [employer] [place] immunoassay analyzers. Results obtained in different methods are not interchangeable. Ashlyn AGUILLON LAB BLOOD ORDERABLES Fin al Result Performing Organization Address [facility] de Phone Number [facility] Unless otherwise noted, all lab tests performed by: Division of Pathology and Laboratory Medicine [address] [place] [id number] * Lipid Panel (12/14/2024 7:56 AM CDT) Cholesterol Total 148 <200 mg/dL 12/14/2024 8:37 AM CDT [facility] Comment: ATP III Classification of Total Cholesterol - Primary Target of Therapy (in mg/dL): <200 Desirable 200-239 Borderline high >=240 High Triglyceride 145 <150 mg/dL 12/14/2024 8:37 AM CDT [facility] Comment: ATP III Classification of Serum Triglycerides Primary Target of Therapy (in mg/dL): <150 Normal 150-199 Borderline high 200-499 High >=500 Very high Non-fasting triglycerides >200 mg/dL may be followed up with a fasting Lipid Panel. Calculated LDL-C may be falsely decreased when non-fasting triglycerides >200 mg/dL. HDL Cholesterol 50 >=40 mg/dL 12/14/2024 8:37 AM CDT [facility] LDL Cholesterol 69 <=100 mg/dL 12/14/2024 8:37 AM CDT [facility] Comment: ATP III Classification of LDL Cholesterol Primary Target of Therapy (in mg/dL): <100 Optimal 100-129 Near optimal/above optimal 130-159 Borderline high 160-189 High >=190 Very high LDL-C is calculated using the Friedewald equation. Very Low Density Lipoprotein 29 mg/dL 12/14/2024 8:37 AM CDT [facility] Is patient fasting? Yes 12/14 8:37 AM CDT [facility] Blood Peripheral blood specimen / Unknown Venipuncture / Unknown 12/14/2024 7:56 AM CDT 12/14/2024 7:58 AM CDT us Ashlyn AGUILLON LAB BLOOD ORDERABLES Fin al Result [facility] Unless otherwise noted, all lab tests performed by: Division of Pathology and Laboratory Medicine [address] [place] [address] * MD [facility] - Tissue (Mutation Analysis Precision Panel-Tissue) (12/12/2024 10:43 AM CDT) Source Material [id number] 4:56 PM CDT [facility] Tumor Block E1 12/27/2024 4:56 PM CDT [facility] *Normal Control Material PB 12/27/2024 4:56 PM CDT MOLECULAR DIAGNOSTICS Interpretation Pilarrandy SAM [id number] [facility] - Tissue (Mutation Analysis Precision Panel) Report A. SPECIMEN INFORMATION Estimated tumor %: 30% Source material: [id number] Collected: 12/12/2024 Tumor block: E1 Received: 12/13/2024 Cancer type: Pancreatic Adenocarcinoma Ordering provider: HENNA Nava ACTIONABLE FINDINGS (for details, see D. Clinical Interpretation) Signature Result Actionability Level of Evidence Tumor mutational burden (TMB) 2 mut/Mb n/a n/a Microsatellite instability (MSI) BAMBI n/a n/a Tier 1 Somatic variants of strong clinical significance (e.g. FDA label or Guideline-recommend ed in this tumor type): None identified Tier 2 Somatic variants of potential clinical significance (e.g. FDA label or Guideline-recommend ed in another tumor type): Gene Alteration Type Location VAF Actionability Evidence KRAS p.G12D c.35G>A Missense Exon 2 23% Pertinent Negatives (i.e. ordered genes where Tier 1/2 annotated mutations were not detected): BRAF, NRAS, PIK3CA C. ADDITIONAL FINDINGS Additional somatic variants (e.g. potentially actionable variants, or variants of unknown [Tier 3] or benign [Tier 4] clinical significance): Gene Alteration Type Location VAF ALK p.R209C c.625C>T Missense Exon 1 <5% PTPRD p.V253I c.757G>A Missense Exon 20 30% SUZ12 p.Y565C c.1694A>G Missense Exon 14 22% TBC1D4 p.? c.3663+2T>C Splice? Splice? (Intron 20) 26% TP53 p.? c.993+2T>C Splice? Splice? (Intron 9) 28% D. CLINICAL INTERPRETATION Comment: The selection and classification of variants for reporting incorporates review of available clinicopathologic information, correlation with current clinical presentation, any consultations with additional healthcare providers and exercise of medical judgement by the signout pathologist. 1. Findings with FDA Indications or Professional Guideline Recommendations in Patient's Tumor Type None Identified 2. Findings with FDA Indications or Professional Guideline Recommendations in Other Tumor Types None Identified 3. Biomarker Summary and Functional Annotations for Select Variants KRAS p.G12D Functional significance: Activating Biomarker summary: KRAS (Omayra GABRIELA), along with HRAS and NRAS, belong to a group of small GTP-binding proteins known as the GABRIELA superfamily. KRAS encodes two gene products (KRAS4A and KRAS4B) generated by alternative splicing, but the clinical focus has been on the KRAS4B variant (58;46). When activated, KRAS stimulates downstream oncogenic pathways, such as JOSEPH/MEK/ERK, PI3K/AKT/mTOR, and RAL/Rac1 that promote cellular proliferation, migration, and tumor invasion (14;27). Functional annotation: This alteration was characterized to be functionally activating. Codons G12, G13 and Q61 of KRAS gene are considered hotspot regions, or areas commonly mutated within KRAS gene. G12D, located within one of the phosphate-binding loops (amino acids 10-18, amino acids 59-60, UniProt) of KRAS protein, has been reported as both germline and somatic across multiple tumor types (24;22;5;9;6). Various studies have shown that G12D led to the accumulation of active KRAS-GTP, induction of GABRIELA downstream MAPK/MEK/ERK and PI3K/AKT/mTOR signaling, and subsequently promoted cell proliferation, survival and tumorigenesis (25;21;7;26;27;24;1 1;12;13;32). A genomic alteration resulting in this amino acid change is recorded within dbSNP ([id number]). The Germline Classification of this alteration in ClinVar is Pathogenic/Likely pathogenic ([id number]) (Nov, 2024). TP53 p.? c.993+2T>C Functional significance: Inactivating: Inferred Biomarker summary: TP53 gene encodes p53 tumor suppressor protein that regulates cell division, cell cycle, DNA repair, apoptosis, and cellular metabolism (160). Functional annotation: Although the exact functional consequences of this alteration have not been experimentally tested, this alteration is inferred to be inactivating. A genomic alteration resulting in this amino acid change is recorded within dbSNP ([id number]) (May, 2022). The clinical significance of this alteration in ClinVar is Pathogenic ([id number]) (Feb, 2024). This alteration results in a mutation affecting the donor canonical splice site of TP53 exon 9. Splice-site mutations may result in partial or full exon skipping, intron retention, cryptic exon incorporation, a frameshift in the coding frame, premature truncation of the protein, or multiple of these simultaneously in different transcripts. This can result in functional inactivation, nonsense-mediated decay, and/or other consequences. Professional guidelines have placed splice site mutations at the conserved/canonical intronic +/- 1 or 2 base positions of genes where inactivation is a known tower truck driver of disease into the strongest category of pathogenicity or oncogenicity with the consideration of several caveats (69;70;71;72). TP53 c.993+2T>C occurs between exonic regions encoding the Tetramerization Domain (amino acids 325 356, UniProt) of the TP53 protein, which is critical for both oligomer formation and sequence-specific transactivation and is essential for TP53 tumor suppressor function (73;74;75;76). Disruption of this splice site has been observed in individuals with Li-Fraumeni syndrome (67;68). Therefore, this mutation is inferred to be inactivating. - Interpretation of clinical actionability was based on the biomarker and cancer type, and used the precision oncology decision support system at [facility] (PMID: 24235799). These interpretations do not take into account treatment history of staging, are applicable as of this report's date, and may change in the future. The clinical significance categories (tiers) for somatic variants were reported using the 2017 AMP/ASCO/CAP guidelines (PMID: 7693951). - For variants therapeutic annotations beyond Tier 1 or Tier 2, providers may explore clinical trial matching options and request additional annotation at [email or web address]. Clinical test requisition for mutation studies on the following genes was received: BRAF, KRAS, NRAS, PIK3CA E. METHODOLOGY Test Description: The [facility] Mutation Analysis Precision Panel ([facility]) assay is a custom high-throughput next generation sequencing-based CLIA assay that uses targeted hybridization-based capture technology for detection of sequence variants/mutations in 610 genes (single nucleotide variants [SNVs] and insertion/deletion alterations [indels]), copy number variants (CNVs) in 583 genes, select gene rearrangements in 34 genes (Fusions), and selected genomic immuno-oncology signatures including microsatellite instability (MSI) and tumor mutational burden (TMB) in DNA isolated from formalin-fixed paraffin embedded (FFPE) tumor tissue and cytology specimens (See Appendix Table 1 and 2). [facility] employs DNA extracted from both tumor tissue and paired normal (blood or tissue) specimens in our CLIA-certified molecular diagnostic laboratory. Routine paraffin-embedded tissue from surgical resection specimens, core needle biopsies and fine needle aspirate (cell blocks and cytology smears) are accepted specimen types. A minimum of 50 ng of genomic DNA undergoes whole-genome library construction with adapters carrying Unique Molecular Indices (MARK) allowing tagging of original double-stranded DNA that facilitates statistical reconstruction of reads sequenced as duplicates from a single-amplified genome. A target area of 2.1 megabases (Mb) hg19 genome is enriched with custom hybrid-capture, 120nt dsDNA probes. [employer] assay uses the LynxFit for Google Glass 6000 next generation sequencing platform and bidirectional paired-end sequencing to identify nucleic acid variants for all coding regions from most genes in the panel, the TERT promoter, 1 non-coding RNA gene, and clinically relevant rearrangements. Reported somatic mutations are identified by comparison to the human genome reference sequence GRCh37/hg19 and reviewed in [employer] against a process-matched normal control. Data analysis is performed in house by the [employer] Bioinformatics pipeline (BIP) which relies on the dual-duplex molecular barcoding for consensus analysis to reduce sequencing artifacts and achieve greater sensitivity and positive predictive value. [employer] is intended to provide tumor mutation profiling in accordance with institutional guidelines in oncology for patients with solid malignant neoplasms. Report annotation and software: A post-variant calling analysis and annotation tool, [employer] 2.1.0.9, was used in the construction of this report. The following additional software tools were utilized in the experimental setup and bioinformatic analysis: LynxFit for Google Glass Control Software 1.7, [employer] Real Time Analysis Software 3.4.4, [employer].2 and [employer] BIP v1.0. Detailed information about the signal-processing, basecalling, alignment, and variant calling algorithms are available upon request. Variants identified are described using an implementation of a standardized nomenclature developed by the Human Genome Variation Society (HGVS, http://www.hgvs.org /varnomen/). A decision-support/Jenn Rykert application programming interface (ShopItToMePODS 7.1.2) was used in the annotation of genomic observations in this report. Test performance specifications: The tumor cellularity in the sample submitted is assessed by a combination of direct morphologic assessment and/or immunophenotypic evaluation as part of the pathology workup. For this assay, sensitivity of detection is related in part to depth of coverage, tumor cellularity, and allelic frequency for the mutation. Although the NGS platform is capable of achieving a much higher analytical sensitivity, for clinical purposes, at around 50 ng input DNA and a minimum of 20% tumor cellularity, we determined the effective lower limit of detection (LoD) for SNVs and INDELs of 5% mutation allelic frequency (one mutant allele in the background of nineteen wild type alleles), 5 fusion breakpoint molecules for Fusion detection, and a threshold of 4 copy number for gene amplifications with an overall panel analytical sensitivity for SNVs 99.2%, INDELs 92.3%, CNVs 97.3%, Fusions 89.1% and MSI 100% while maintaining analytical specificity near 100%. Notable limitations of the test: · [facility] requires a normal non-tumor sample for appropriate interpretation of somatic mutations. · Silent mutations (mutations that do not result in an amino acid change) are not reported. · A minimum of 20% tumor cellularity is required in the sample for mutation analysis. Clinical tumor specimens below 20% tumor cellularity are not optimal for MSI and TMB interpretation and thus Not Reportable . · The primary purpose of this panel is to detect somatic mutations in genes involved in oncogenesis of this patient s tumor. The test or the results thereof should not be used to detect germline variants for hereditary cancer syndromes. If a hereditary cancer syndrome is suspected, separate testing of a germline sample should be performed using an appropriate assay. · Variants detected below Limits of Detection (LoD) not deemed to be confirmable by independent, orthogonal methods and/or in significant discordance with the tumor cellularity in the tested sample may be excluded as the clinical significance and reliability of such low-level mutation calls is not clear. · Variant allelic frequency (VAF) is included for reported sequence variants and reflects the percentage of mutant reads compared to all reads present at the variant position. This number reflects a complex mixture of factors including tumor cellularity, potential CNVs and loss of heterozygosity, and potential subclonality. In addition, strand or allelic bias can significantly impact the measurement of specific variants in any sequencing platform. The clinical utility or meaning of this number in general is not considered established. Linearity of measurement should not be assumed. · Copy number assessment by next generation sequencing can be affected by tumor cellularity, amplitude of gene amplification, enrichment of tumor during pre-analytical phase, library preparation methods and analysis algorithms. With 40% tumor content or higher, this test has a specificity of 0.96 and a sensitivity of at least 0.9 for detection of homozygous loss of CDKN2A/CDKN2B and MTAP. False negative results can be obtained in cases with low tumor percentage, low amplicon coverage and/or borderline copy number alterations. The reporting of copy number losses is restricted to CDKN2A/CDKN2B and MTAP. Other genes are not evaluated for copy number loss. This assay cannot reliably identify heterozygous gene losses. Correlation with traditional methods of copy number assessment such as fluorescent in situ hybridization (FISH) is recommended as applicable. · False negative fusion results can occur in cases with low fusion DNA molecules, low tumor cellularity, fusions occurring in highly repetitive intronic sequence contexts or fusions where the genomic breakpoint does not span within targeted introns covered by the panel (See Appendix Table 2). The assay requires a minimum of 20% tumor sample cellularity to reduce the potential for false negative results. Correlation with traditional methods of fusion detection such as fluorescent in situ hybridization (FISH) is recommended as applicable. · Tumor mutational burden (TMB) is determined by measuring the number of somatic mutations occurring in sequenced genes and specified as a rate (mutations per megabase [mut/Mb]). TMB is calculated for all samples and includes the sum of all somatic synonymous and non-synonymous variants present in the sample at a VAF near LoD and above the noise-level of the assay (after filtering). The number of mutations per megabase may be reported as a nominal number rounded to the closest integer. TMB in cases with low sequence quality cannot be established and may be reported as Not Reportable . · The microsatellite instability high (MSI-H) and microsatellite stable (BAMBI) reported by [facility] is based on the analysis of 40+ informative microsatellite loci. The total number of sites evaluated is dependent on coverage metrics over candidate MSI regions in the paired tumor and normal samples. Microsatellite instability is reported as Undetermined if the sample does not meet the required thresholds to make a MSI-H or BAMBI call. The thresholds for designating these calls were established by analytical concordance to comparator assays (PCR, IHC and NGS) using a wide selection of tumor tissue types including colorectal and endometrial cancers. Confirmatory testing of microsatellite instability (MSI-PCR, MLH1 promoter methylation) and DNA mismatch repair gene assessment (MMR deficiency) is recommended as applicable for complete evaluation. · Correlation with clinicopathologic features and prevalent clinical practice guidelines is recommended for complete evaluation and integration of genomic findings in patient care decisions. Sequencing coverage of the genes: The following table describes the extent and adequacy of coverage for ordered genes only. Covered genes/exons/codons are defined as those having total coverage depth of greater than or equal to 100 [id number]-wslxa-ddijzfsbz , collapsed reads (minimum 100x coverage). Mutations in ordered genes outside the optimally covered regions listed below may be detected with diminished sensitivity and cannot be ruled out. Coverage information for non-ordered genes for this sample is complex and lengthy, but may be requested from the laboratory if required for clinical care or correlative purposes. Gene Exons (codons) tested ABL1 (NM_005157) 1-11 (1-1131) ABL2 (NM_005158) 1-12 (1-1168) ABRAXAS1 (NM_139076) 1-9 (1-410) ACVR1 (NM_[id number]) 3-11 (1-510) ACVR1B (NM_004302) 1-9 (1-506) ACVR2A (NM_001616) 1-11 (1-514) ADGRA2 (NM_032777) 1-19 (11339) AJUBA (NM_032876) 1-8 (1-539) AKT1 (NM_005163) 2-14 (1-481) AKT2 (NM_001626) 2-14 (1-482) AKT3 (NM_005465) 2-14 (1-480) AKTIP (NM_022476) 2-10 (1-293) ALK (NM_004304) 1-29 (11621) BTRT88K (NM_001139) 1-15 (1702) AMER1 (NM_152424) 2 (11136) ANKRD11 (NM_013275) 3-8 (1-298), 9 (5102-9013), 9 (298-2344), 9 (2354), 10-13 (2241-0322) APC (NM_000038) 2-16 (1-2844) AR (NM_000044) 1 (1-456), 1-8 (461-921) ARAF (NM_001654) 2-16 (1-607) ARFRP1 (NM_001267547) 2-8 (1-202) ARID1A (NM_006015) 1-20 (1-2286) ARID1B (NM_001346813) 1 (1-207), 1-20 (245-2290) ARID2 (NM_152641) 1-21 (11836) ARID5B (NM_032199) 1-10 (1-1189) ASCC3 (NM_006828) 2-42 (12203) ASPM (NM_018136) 1-28 (1-3478) ASXL1 (NM_015338) 1-13 (1-1542) ASXL2 (NM_018263) 1-13 (1-1436) CATRACHO (NM_000051) 2-63 (1-3057) ATR (NM_001184) 1-47 (1-2645) ATRX (NM_000489) 1-35 (1-2493) AURKA (NM_003600) 2-9 (1-404) AURKB (NM_004217) 2-9 (1-345) AURKC (NM_003160) 2-7 (1-276) AXIN1 (NM_003502) 2-11 (1-863) AXIN2 (NM_004655) 2-11 (1-844) SAMIR (NM_001699) 1-19 (1-886) B2M (NM_004048) 1-3 (1-120) BAP1 (NM_004656) 1-17 (1-730) BARD1 (NM_000465) 1-11 (1778) BBC3 (NM_014417) 2 (62-92), 2 (1-49), 2 (57-59), 3-4 (92-194) BCL10 (NM_003921) 1-3 (1-234) BCL11A (NM_022893) 1-4 (1-836) BCL2 (NM_000633) 2-3 (1-240) BCL2L1 (NM_138578) 2-3 (1-234) RDC6I18 (NM_138621) 2-4 (1-199) BCL2L2 (NM_004050) 3-4 (1-194) BCL6 (NM_001706) 3-10 (1-707) BCOR (NM_017745) 2-15 (1-1722) BCORL1 (NM_021946) 1-3 (1-376), 3-12 (391-1712) BCR (NM_004327) 1-23 (1-1272) BIRC2 (NM_001166) 2-9 (1-619) BIRC3 (NM_001165) 2-9 (1-605) BLM (NM_000057) 2-22 (1-1418) BMPR1A (NM_004329) 3-13 (1-533) BRAF (NM_004333) 1-18 (1-767) BRCA1 (NM_007294) 2-23 (1-1864) BRCA2 (NM_000059) 2-27 (1-3419) BRD4 (NM_058243) 2-13 (1-770), 13-14 (785-923), 14-20 (3758-6010) BRIP1 (NM_032043) 2-20 (1-1250) BTG1 (NM_001731) 1-2 (1-172) BTG2 (NM_006763) 1-2 (1-159) BTK (NM_000061) 2-19 (1-660) BUB1 (NM_004336) 1-25 (1-1086) CALR (NM_004343) 1-9 (1-418) CARD11 (NM_032415) 2-25 (1-1155) CASP8 (NM_001228) 3-10 (1-497) CBFB (NM_022845) 1-6 (1-188) CBL (NM_005188) 1-16 (1-907) CCN6 (NM_198239) 1-5 (1-355) CCNA2 (NM_001237) 1-8 (1-433) CCND1 (NM_053056) 1-5 (1-296) CCND2 (NM_001759) 1-5 (1-290) CCND3 (NM_001760) 1-5 (1-293) CCNE1 (NM_001238) 2-12 (1-411) CD274 (NM_014143) 2-7 (1-291) CD276 (NM_001024736) 2-10 (1-535) CD74 (NM_001025159) 1-9 (1-297) CD79A (NM_001783) 1-3 (1-166), 4 (170-178), 4 (180), 4-5 (189-227) CD79B (NM_000626) 1-6 (1-230) CD8A (NM_001768) 1-6 (1-236) CDC20 (NM_001255) 2-11 (1-500) CDC27 (NM_001256) 1-19 (1-825) CDC6 (NM_001254) 2-12 (1-561) CDC73 (NM_024529) 1-17 (1-532) CDH1 (NM_004360) 1-16 (1-883) CDK12 (NM_016507) 1-14 (1-1491) CDK2 (NM_001798) 1-7 (1-299) CDK4 (NM_000075) 2-8 (1-304) CDK6 (NM_001259) 2-8 (1-327) CDK8 (NM_001260) 1-13 (1-465) CDKN1A (NM_000389) 2-3 (1-165) CDKN1B (NM_004064) 1-2 (1-199) CDKN2A (NM_000077) 1-3 (1-157) CDKN2B (NM_004936) 1-2 (1-139) CDKN2C (NM_001262) 2-3 (1-169) CEBPA (NM_004364) 1 (1-359) CENPA (NM_001809) 1-4 (1-141) CENPE (NM_001813) 1-49 (1-2702) CHAF1A (NM_005483) 1-15 (1-957) CHEK1 (NM_001274) 2-13 (1-477) CHEK2 (NM_007194) 2-15 (1544) CIC (NM_015125) 1-20 (11595) COL2A1 (NM_033150) 1-53 (1-1419) COP1 (NM_022457) 1-20 (1-732) CREBBP (NM_004380) 1-31 (1-1940), 31 (2856-4716) CRKL (NM_005207) 1-3 (1-304) CRLF2 (NM_022148) 1-8 (1-263) CSF1R (NM_005211) 2-22 (1-973) CSF3R (NM_156039) 3-17 (1-864) CTCF (NM_006565) 3-12 (1-728) CTLA4 (NM_005214) 1-4 (1-224) CTNNA1 (NM_001903) 2-18 (1-907) CTNNB1 (NM_001904) 2-15 (1-782) CUL3 (NM_003590) 1-16 (1-769) CUL4A (NM_001008895) 1-20 (1-760) CUL4B (NM_001079872) 1-20 (1-896) CUX1 (NM_181552) 1-24 (1-1506) CXCR4 (NM_003467) 1-2 (1-353) CYLD (NM_015247) 4-20 (1-957) CQG9C02 (NM_000769) 1-9 (1-491) DAXX (NM_001350) 2-8 (1-741) EUEDC6U (NM_001033855) 1-14 (1-693) CMVS0B2 (NM_020640) 1-7 (1-260) DDB1 (NM_001923) 1-27 (1-1141) DDR1 (NM_013993) 3-19 (1-914) DDR2 (NM_006182) 3-18 (1-856) DDX3X (NM_001356) 1-17 (1-663) DICER1 (NM_030621) 4-29 (1-1923) DIS3 (NM_014953) 1-21 (1959) DLL3 (NM_203486) 1-9 (1-588) DNA2 (NM_001080449) 1-21 (1-1061) DNAJB1 (NM_006145) 1-3 (1-341) DNMT1 (NM_001130823) 1-4 (1-149), 6-41 (165-1633) DNMT3A (NM_022552) 2-23 (1-913) DNMT3B (NM_006892) 2-23 (1-854) DOT1L (NM_032482) 1-28 (1-1538) E2F3 (NM_001949) 1-7 (1-466) EED (NM_003797) 1-12 (1-442) EGFL7 (NM_016215) 4-11 (1-274) EGFR (NM_005228) 1-28 (1-1211) EIF1AX (NM_001412) 1-7 (1-145) EIF4A2 (NM_001967) 1-11 (1-408) EIF4E (NM_001968) 1-7 (1-218) ELF3 (NM_004433) 2-9 (1-372) ELOC (NM_005648) 2-4 (1-113) EMSY (NM_001300943) 2-21 (1-1324) ENO1 (NM_001428) 2-12 (1-435) EP300 (NM_001429) -31 (12415) EPCAM (NM_002354) 1-9 (1-315) EPHA2 (NM_004431) 1-17 (1977) EPHA3 (NM_005233) 1-17 (1984) EPHA5 (NM_001281766) 1-17 (11017) EPHA7 (NM_004440) 1-17 (1-999) EPHB1 (NM_004441) 1-16 (1985) ERBB2 (NM_004448) 1-27 (11256) ERBB3 (NM_001982) -28 (11343) ERBB4 (NM_005235) -28 (11309) ERCC1 (NM_202001) 1-8 (1-324) ERCC2 (NM_000400) 1-23 (1-761) ERCC3 (NM_000122) 1-15 (1-783) ERCC4 (NM_005236) 1-11 (1-917) ERCC5 (NM_000123) 1-15 (1-1187) ERCC6 (NM_000124) 2-21 (1-1494) ERG (NM_004449) 3-11 (1-463) ERRFI1 (NM_018948) 2-4 (1-463) ESR1 (NM_000125) 1-8 (1-596) ETV1 (NM_004956) 3-14 (1-478) ETV4 (NM_001986) 2-13 (1-485) ETV5 (NM_004454) 2-7 (1-160), 7-13 (178-511) ETV6 (NM_001987) 1-8 (1-453) EWSR1 (NM_013986) 1-18 (1-662) EXO1 (NM_130398) 4-16 (1-847) EZH2 (NM_004456) 2-20 (1-752) FADD (NM_003824) 1-2 (1-209) FANCA (NM_000135) 1-43 (1-1456) FANCC (NM_000136) 2-15 (1-559) FANCD2 (NM_033084) 2-43 (11472) FANCE (NM_021922) 1-10 (1-537) FANCF (NM_022725) 1 (1-375) FANCG (NM_004629) 1-14 (1-623) FANCI (NM_018193) 2-37 (1-1269) FANCL (NM_018062) 1-14 (1-376) FANCM (NM_020937) 1-23 (1-2049) FAS (NM_000043) 1-9 (1-336) FAT1 (NM_005245) 2-27 (14589) FBXW7 (NM_033632) 2-12 (1708) FGF10 (NM_004465) 1-3 (1-209) FGF14 (NM_175929) 1-5 (1-253) FGF19 (NM_005117) 1-3 (1-217) FGF23 (NM_020638) 1-3 (1-252) FGF3 (NM_005247) 1-3 (1-240) FGF4 (NM_002007) 1-3 (1-207) FGF5 (NM_004464) 1-3 (1-269) FGF6 (NM_020996) 1-3 (1-209) FGF9 (NM_002010) 1-3 (1-209) FGFR1 (NM_015850) 2-18 (1-821) FGFR2 (NM_000141) 2-18 (1-822) FGFR3 (NM_000142) 2-18 (1-807) FGFR4 (NM_022963) 1-16 (1-763) FH (NM_000143) 1-10 (1-511) FLCN (NM_144997) 4-14 (1-580) FLT1 (NM_002019) 1-30 (1-1339) FLT3 (NM_004119) 1-24 (1-994) FLT4 (NM_002020) 1-30 (1-1299) FOXA1 (NM_004496) 1-2 (1-473) FOXL2 (NM_023067) 1 (1-377) FOXO1 (NM_002015) 1-2 (1-656) FOXP1 (NM_032682) 6-21 (1-678) FRS2 (NM_006654) 6-10 (1-509) FTO (NM_001080432) 1-9 (1-506) FUBP1 (NM_003902) 1-20 (1-645) FYN (NM_002037) 4-14 (1-538) GABRA6 (NM_000811) 1-9 (1-454) LWUQ72X (NM_001924) 1-4 (1-166) GATA1 (NM_002049) 2-6 (1-414) GATA2 (NM_032638) 2-6 (1-481) GATA3 (NM_001002295) 2-6 (1-445) GATA4 (NM_002052) 2-7 (1-443) GATA6 (NM_005257) 2 (1-321), 2-7 (326-596) GEN1 (NM_001130009) 2-14 (1-909) GID4 (NM_024052) 1-6 (1-301) GLI1 (NM_005269) 2-12 (1-1107) GNA11 (NM_002067) 1-7 (1-360) GNA13 (NM_006572) 1-4 (1-378) GNAQ (NM_002072) 1-7 (1-360) GNAS (NM_000516) 1-13 (1-395) GPS2 (NM_004489) 2-11 (1-328) GRIN2A (NM_001134407) 2-13 (1-1465) GRM3 (NM_000840) 2-6 (1-880) GSK3B (NM_001146156) 1-11 (1-421) H1-2 (NM_005319) 1 (1-214) H2AX (NM_002105) 1 (1-144) H2BC5 (NM_138720) 1 (1-126) H3-3A (NM_002107) 2-4 (1-137) H3-3B (NM_005324) 2-4 (1-137) H3-4 (NM_003493) 1 (1-137) H3-5 (NM_001013699) 1 (1-136) H3C1 (NM_003529) 1 (1-136) H3C10 (NM_003536) 1 (1-136) H3C11 (NM_003533) 1 (1-137) H3C12 (NM_003535) 1 (1-137) H3C13 (NM_001123375) 1 (1-137) H3C2 (NM_003537) 1 (1-137) H3C3 (NM_003531) 1 (1-136) H3C4 (NM_003530) 2 (1-137) H3C6 (NM_003532) 1 (1-137) H3C7 (NM_021018) 1 (1-137) H3C8 (NM_003534) 1 (1-137) HDAC2 (NM_001527) 1-14 (1-489) HDAC9 (NM_178425) 1-25 (1-1070) HELQ (NM_133636) 1-18 (1-1102) HERC2 (NM_004667) 2-27 (1-1396), 28-44 (6263-3570), 45 (9366-7726), 46-93 (5674-7788) HFM1 (NM_001017975) 2-39 (1-1436) HGF (NM_000601) 1-18 (1-729) HLA-A (NM_002116) 1-8 (1-366) HNF1A (NM_000545) 1-10 (1-632) HOXB13 (NM_006361) 1-2 (1-285) HRAS (NM_005343) 2-5 (1-190) HSD3B1 (NM_000862) 2-4 (1-374) PYZ17MM6 (NM_001017963) 1-12 (1-855) FDO45HU5 (NM_007355) 2-12 (1-725) ICOSLG (NM_015259) 1-7 (1-303) ID3 (NM_002167) 1-2 (1-120) IDH1 (NM_005896) 3-10 (1-415) IDH2 (NM_002168) 1-11 (1-453) IFNGR1 (NM_000416) 1-7 (1-490) IGF1 (NM_000618) 1-4 (1-154) IGF1R (NM_000875) 1-21 (1-1368) IGF2 (NM_000612) 2-4 (1-181) IKBKE (NM_014002) 3-22 (1-717) IKZF1 (NM_006060) 2-8 (1-520) IL10 (NM_000572) 1-5 (1-179) IL7R (NM_002185) 1-8 (1-460) INHA (NM_002191) 1-2 (1-367) INHBA (NM_002192) 2-3 (1-427) INO80 (NM_017553) 2-36 (1-1557) INPP4A (NM_001134225) 3-25 (1-973) INPP4B (NM_001101669) 4-26 (1-925) INSR (NM_000208) 1-22 (18-1383) IRF2 (NM_002199) 2-9 (1-350) IRF4 (NM_002460) 2-9 (1-452) IRS1 (NM_005544) 1 (1-1243) IRS2 (NM_003749) 1-2 (1-1339) JAK1 (NM_002227) 2-25 (1-1155) JAK2 (NM_004972) 3-25 (1-1133) JAK3 (NM_000215) 2-24 (1-1125) MACEY (NM_002228) 1 (1-332) KAT6A (NM_006766) 2-17 (1-2005) KDM5A (NM_001042603) 1-28 (1169) KDM5C (NM_004187) 1-26 (1156) KDM6A (NM_021140) 1-29 (1402) KDR (NM_002253) 1-30 (11357) KEAP1 (NM_012289) 2-6 (1625) MARK (NM_000420) 1-19 (1-733) KIT (NM_000222) 1-21 (1977) KLF4 (NM_004235) 1-5 (1480) KLHL6 (NM_130446) 1-7 (1622) KMT2A (NM_005933) 1-36 (13970) KMT2B (NM_014727) 1-3 (24-420), 3 (437-620), 3-28 (638-2225), 28-37 (5688-8223) KMT2C (NM_170606) 1-59 (14912) KMT2D (NM_003482) 1-41 (1-4613), 42-54 (3004-1667) KNSTRN (NM_033286) 1-9 (1-317) KRAS (NM_004985) 2-5 (1-189) LATS1 (NM_004690) 2-8 (1-1131) LATS2 (NM_014572) 2-8 (1-1089) LCK (NM_005356) 2-13 (1-510) LIG4 (NM_002312) 2 (1-912) LMO1 (NM_002315) 1-4 (1-157) LRP1B (NM_018557) 1-91 (1-4600) YAO (NM_002350) 2-13 (1-513) MAD2L2 (NM_006341) 2-9 (1-212) MAGOH (NM_002370) 1-5 (1-147) MALT1 (NM_173844) 1-2 (1-126), 3-16 (128-814) MAP2K1 (NM_002755) 1-11 (1-394) MAP2K2 (NM_030662) 1-11 (1-401) MAP2K4 (NM_003010) 1-11 (1-400) MAP2K7 (NM_145185) 1-11 (1-420) MAP3K1 (NM_005921) 1-20 (1-1513) LEK1K05 (NM_004721) 2-14 (1-967) OYF9L20 (NM_003954) 2-17 (1-947) MAP3K4 (NM_005922) 1-27 (1-1609) MAPK1 (NM_002745) 1-8 (1-361) MAPK3 (NM_002746) 1-8 (13-380) MAPK8 (NM_139049) 4-14 (1-428) MAX (NM_002382) 1-5 (1-161) MCL1 (NM_021960) 1-3 (1-351) MDC1 (NM_014641) 2-15 (1-2090) MDM2 (NM_002392) 1-11 (1-498) MDM4 (NM_002393) 2-11 (1-491) MED12 (NM_005120) 1-17 (1-802), 18-45 (808-2178) MEF2B (NM_001145785) 2-9 (1-369) MEN1 (NM_130799) 2-10 (1-611) MERTK (NM_006343) 1-19 (1-1000) MET (NM_001127500) 2-21 (1-1409) MGA (NM_001164273) 2-24 (1-3066) MGMT (NM_002412) 2-5 (1-208) MITF (NM_000248) 1-9 (1-420) MLH1 (NM_000249) 1-19 (1-757) MLH3 (NM_001040108) 2-13 (1-1454) MPL (NM_005373) 1-12 (1-636) MRE11 (NM_005590) 2-19 (1-681) MSH2 (NM_000251) 1-16 (1-935) MSH3 (NM_002439) 1 (1-56), 1 (58-65), 1-24 (69-1138) MSH6 (NM_000179) 1-10 (1-1361) MST1 (NM_020998) 1-18 (1-726) MST1R (NM_002447) 1-20 (1-1401) MTAP (NM_002451) 1-8 (1-284) MTOR (NM_004958) 2-58 (1-2550) MUTYH (NM_012222) 1-16 (1-547) MXD4 (NM_006454) 1-6 (1-210) MYB (NM_005375) 2-15 (8-641) MYC (NM_002467) 1-3 (1-455) MYCL (NM_005376) 1-2 (1-237) MYCN (NM_005378) 2-3 (1-465) MYD88 (NM_002468) 1-5 (1-297) MYOD1 (NM_002478) 1-3 (1-321) NBN (NM_002485) 1-16 (1-755) NCOA3 (NM_181659) 3-23 (1-1425) NCOR1 (NM_006311) 2-46 (1-2441) NEGR1 (NM_173808) 1-7 (1-355) NF1 (NM_001042492) 1-4 (1-160), 5 (167-187), 6-58 (196-2840) NF2 (NM_000268) 1-16 (1-596) NFE2L2 (NM_006164) 1-5 (1-606) NFKBIA (NM_020529) 1-6 (1-318) NHEJ1 (NM_024782) 2-8 (1-300) NKX2-1 (NM_003317) 1-2 (1-372) NKX3-1 (NM_006167) 1-2 (1-235) NOTCH1 (NM_017617) 1-34 (1-2556) NOTCH2 (NM_024408) 1 (1-25), 3-34 (52-2472) NOTCH3 (NM_000435) 1-33 (2) NOTCH4 (NM_004557) 1-30 (1-2004) NPM1 (NM_002520) 1-11 (1295) NRAS (NM_002524) 2-5 (1-190) NSD1 (NM_022455) 2-23 (12697) NSD3 (NM_023034) 2-24 (11438) NT5C2 (NM_001351169) 3-19 (1-562) NTRK1 (NM_002529) 1-17 (1797) NTRK2 (NM_006180) 4-21 (1839) NTRK3 (NM_002530) 3-19 (1-826) NUP93 (NM_014669) 2-22 (1-820) NUTM1 (NM_001284292) 1-8 (1-1161) PAK1 (NM_002576) 2-15 (1-546) PAK3 (NM_002578) 5-18 (1-545) PAK5 (NM_177990) 3-10 (1-720) PALB2 (NM_024675) 1-13 (1-1187) PARP1 (NM_001618) 1-23 (1-1015) PARP2 (NM_001042618) 1-16 (1-571) PARP3 (NM_001370240) 2-11 (1-534) PARP4 (NM_006437) 2-33 (1-1660) PARPBP (NM_017915) 2-11 (1-580) PAX5 (NM_016734) 1-10 (1-392) PAXX (NM_183241) 1-7 (1-205) PBRM1 (NM_018313) 2-30 (1-1583) PCNA (NM_182649) 1-6 (1-262) PDCD1 (NM_005018) 1-5 (1-289) QXAW2WM4 (NM_025239) 2-7 (1-274) PDGFB (NM_002608) 1-6 (1-242) PDGFRA (NM_006206) 2-23 (1-1090) PDGFRB (NM_002609) 2-23 (1-1107) PDK1 (NM_002610) 1-11 (1-437) PER1 (NM_002616) 2-19 (1-885), 19-23 (897-1291) PGD (NM_002631) 1-13 (1-484) PGR (NM_000926) 1-8 (1934) PHF6 (NM_032458) 2-10 (1-366) PHOX2B (NM_003924) 1-3 (1-315) FYO5M5H (NM_002646) 3-34 (1-1635) OJR3K1M (NM_001288772) 2-33 (1-1487) PIK3C3 (NM_002647) 1-25 (1888) PIK3CA (NM_006218) 2-21 (1-1069) PIK3CB (NM_006219) 3-24 (1-1071) PIK3CD (NM_005026) 3-24 (1-1045) PIK3CG (NM_002649) 2-11 (1-1103) PIK3R1 (NM_181523) 2-16 (1-725) PIK3R2 (NM_005027) 2-16 (1-729) PIK3R3 (NM_003629) 1-10 (1-462) PIM1 (NM_002648) 1-6 (1-314) PLCG1 (NM_002660) 1-32 (1-1292) PLCG2 (NM_002661) 2-33 (1-1266) PLK2 (NM_006622) 1-14 (1-686) PMAIP1 (NM_021127) 1-2 (1-55) PML (NM_033238) 1-9 (1-883) PMS1 (NM_000534) 2-13 (1-933) PMS2 (NM_000535) 1-14 (1-815) PNKP (NM_007254) 2-17 (1-522) PNRC1 (NM_006813) 1-2 (1-328) POLA1 (NM_001330360) 1-3 (1-87), 4-37 (89-1469) POLD1 (NM_002691) 2-27 (1-1108) POLE (NM_006231) 1-49 (1-2287) POLQ (NM_199420) 1-30 (1-2591) PPARG (NM_015869) 1-7 (1-506) PPM1D (NM_003620) 1-6 (1-606) YTH1T0S (NM_002711) 1-4 (1-1123) WPM7I1U (NM_014225) 1-15 (1-590) JGA6V7A (NM_002717) 1-10 (1-448) PPP4R4 (NM_058237) 1-25 (1-874) PPP6C (NM_002721) 1-7 (1-306) PRC1 (NM_003981) 1-15 (1-621) PRDM1 (NM_001198) 1-7 (1-826) PREX2 (NM_024870) 1-40 (1-1607) PRG4 (NM_005807) 2-7 (1-618), 7-13 (654-1405) DNBEQ8E (NM_212472) 2-11 (1-382) PRKCI (NM_002740) 1-18 (1-597) PRKDC (NM_006904) 1-87 (1-4128) PRKN (NM_004562) 1-12 (1-466) PTCH1 (NM_000264) 1-23 (1-1448) PTEN (NM_000314) 1-9 (1-404) PTK2 (NM_001352701) 3-36 (1-1097) PTPN11 (NM_002834) 1-15 (1-594) PTPRB (NM_001109754) 1-34 (1-2216) PTPRD (NM_002839) 12-46 (1-1913) PTPRS (NM_002850) 2-38 (1-1949) PTPRT (NM_133170) 1-32 (1-1461) QKI (NM_006775) 1-8 (1-342) RAB35 (NM_006861) 1-6 (1-202) RAC1 (NM_006908) 1-6 (1-193) RAD21 (NM_006265) 2-14 (1-632) RAD50 (NM_005732) 1-25 (1-1313) RAD51 (NM_002875) 2-10 (1-340) PHD34SA9 (NM_006479) 1-9 (1-336) RAD51B (NM_133509) 2-10 (1-346) RAD51C (NM_002876) 1-2 (1-136) RAD51D (NM_133629) 1-7 (1-217) RAD52 (NM_134424) 2-12 (1-419) RAD54L (NM_003579) 1-18 (1-748) RAF1 (NM_002880) 2-17 (1-649) REED (NM_000964) 2-9 (1-463) RASA1 (NM_002890) 1-25 (1-1048) RB1 (NM_000321) 1-14 (1-463), 16-27 (474-929) RBM10 (NM_005676) 2-24 (1-931) RECQL4 (NM_004260) 1-22 (1-1209) REL (NM_002908) 1-8 (1-308), 10-11 (340-620) RET (NM_020975) 1-20 (1-1115) REV3L (NM_001372078) 1-32 (1-3131) RFC1 (NM_002913) 1-25 (1-1148) RFC2 (NM_181471) 1-11 (1-355) RFC3 (NM_002915) 1-9 (1-357) RFC4 (NM_181573) 2-11 (1-364) RFC5 (NM_007370) 1-11 (1-341) RHEB (NM_005614) 1-8 (1-185) RHOA (NM_001664) 2-5 (1-194) RICTOR (NM_152756) 1-38 (1-1709) RIF1 (NM_018151) 2-36 (1-2473) RIT1 (NM_006912) 2-6 (1-220) RMI1 (NM_001358291) 3 (1-626) RMI2 (NM_152308) 1-2 (1-148) RNF43 (NM_017763) 2-10 (1-784) ROS1 (NM_002944) 1-43 (1-2348) RPA1 (NM_002945) 1-17 (1-617) RPA2 (NM_002946) 1-9 (1-271) RPA3 (NM_002947) 5-8 (1-122) RPA4 (NM_013347) 1 (1-262) EDP3PB5 (NM_003942) 1-17 (1-773) EUU0OD4 (NM_003161) 1-15 (1-526) EHM3ZR9 (NM_003952) 1-15 (1-483) RPTOR (NM_020761) 1-34 (1-1336) RSPO1 (NM_001242908) 3-7 (1-264) RSPO2 (NM_178565) 2-6 (1-244) RUNX1 (NM_001754) 2-9 (1-481) IDLA5D5 (NM_175635) 2-11 (1-568) RYBP (NM_012234) 1-4 (1-219) SDHA (NM_004168) 1-15 (1-665) SDHAF2 (NM_017841) 1-4 (1-167) SDHB (NM_003000) 1-8 (1-281) SDHC (NM_003001) 1-6 (1-170) SDHD (NM_003002) 1-4 (1-160) SESN1 (NM_014454) 1-10 (1-552) SETBP1 (NM_015559) 2-6 (1-1597) SETD2 (NM_014159) 1-21 (1-2565) SF3B1 (NM_012433) 1-25 (1-1305) SGK1 (NM_005627) 1-12 (1-432) SH2B3 (NM_005475) 2-8 (1-576) SH2D1A (NM_002351) 1-4 (1-129) SHLD1 (NM_152504) 2-3 (1-206) SHLD2 (NM_001330112) 3 (1-305), 3-10 (334-905) SHPRH (NM_001042683) 2-30 (1-1684) SHQ1 (NM_018130) 1-11 (1-578) LCB08M5 (NM_006424) 2-13 (1-691) SLIT2 (NM_004787) 1-37 (1-1530) SLX4 (NM_032444) 2-15 (1-1835) SMAD2 (NM_005901) 2-11 (1-468) SMAD3 (NM_005902) 1-9 (1-426) SMAD4 (NM_005359) 2-12 (1-553) SMARCA2 (NM_003070) 2-4 (1-264), 5-34 (290-1591) SMARCA4 (NM_003072) 2-35 (1-1648) SMARCAD1 (NM_020159) 2-24 (1-1027) SMARCB1 (NM_003073) 1-9 (1-386) SMARCD1 (NM_003076) 1-13 (1-516) SMC1A (NM_006306) 1-25 (1-1234) SMC3 (NM_005445) 1-29 (1-1218) SMC5 (NM_015110) 1-25 (1-1102) SMC6 (NM_001142286) 3-28 (1-1092) SMO (NM_005631) 1-12 (1-788) SNCAIP (NM_005460) 2-11 (1-920) SOCS1 (NM_003745) 2 (1-212) SOS1 (NM_005633) 1-23 (1-1334) SOX10 (NM_006941) 2-4 (1-467) SOX17 (NM_022454) 1-2 (1-415) SOX2 (NM_003106) 1 (1-318) SOX9 (NM_000346) 1-3 (1-510) SPEN (NM_015001) 1-15 (13665) SPOP (NM_003563) 3-11 (1-375) SRC (NM_005417) 4-14 (1-537) SRSF2 (NM_003016) 1-2 (1-222) SSBP1 (NM_003143) 2-7 (1-149) STAG2 (NM_006603) 2-10 (1-339), 11-20 (347-699), 21-33 (702-1232) STAT3 (NM_139276) 2-24 (1-771) STAT4 (NM_003151) 2-24 (1-749) STAT5A (NM_003152) 3-20 (1-795) STAT5B (NM_012448) 2-19 (1788) STK11 (NM_000455) 1-9 (1-434) STK19 (NM_004197) 1-7 (1-350) STK40 (NM_001282547) 2-11 (1-436) SUFU (NM_016169) 1 (1-9), 1-12 (16-485) SUZ12 (NM_015355) 1-16 (1-740) SYK (NM_003177) 2-14 (1-636) TBC1D4 (NM_014832) 1-21 (1-1299) TBX3 (NM_005996) 1-7 (1-724) TCF3 (NM_003200) 2-19 (1-655) TCF7L2 (NM_030756) 1-14 (1597) OJ (NM_000459) 1-23 (11125) TENT5C (NM_017709) 2 (1-392) TERC (NR_001566) 1 (1-151) TERT (NM_198253) 1-16 (11133) TET1 (NM_030625) 2-12 (1) TET2 (NM_001127208) 3-11 () TFE3 (NM_006521) 1-10 (1576) TGFB1 (NM_000660) 1-7 (1391) TGFBR1 (NM_004612) 1-9 (504) TGFBR2 (NM_003242) 1-7 (568) ONIH143 (NM_017849) 2-4 (1239) TMPRSS2 (NM_005656) 2-14 (493) TNF (NM_000594) 1-4 (234) TNFAIP3 (NM_006290) 2-9 (791) TLTASP40 (NM_003820) 1-8 (1284) TOP1 (NM_003286) 1-21 (76) TOP2A (NM_001067) 1-35 (153) TOP3A (NM_004618) 1-19 (11002) TOPBP1 (NM_007027) 2-28 (1152) TP53 (NM_000546) 2-11 (394) EM98WV2 (NM_001141980) 1-28 () TP53I3 (NM_004881) 1-5 (1333) TP63 (NM_003722) 1-14 (168) TRAF2 (NM_021138) 2-11 (1502) TRAF7 (NM_032271) 2-21 (167) YOKBBY76 (NM_024941) 1-13 (1-418) TSC1 (NM_000368) 3-23 (11165) TSC2 (NM_000548) 2-42 (1-1808) TSHR (NM_000369) 1-10 (1-765) TTK (NM_003318) 2-22 (1-858) TYRO3 (NM_006293) 1-19 (1-891) U2AF1 (NM_006758) 1-8 (1-241) VEGFA (NM_003376) 1-8 (1-396) VHL (NM_000551) 1-3 (1-214) VTCN1 (NM_024626) 1-5 (1-283) WRN (NM_000553) 2-35 (1-1433) WT1 (NM_024426) 1-10 (1-523) XIAP (NM_001167) 2-7 (1-498) XPO1 (NM_003400) 2-25 (1-1072) XRCC2 (NM_005431) 1-3 (1-281) XRCC3 (NM_005432) 4-10 (1-347) XRCC4 (NM_022406) 2-8 (1-337) XRCC5 (NM_021141) 1-21 (1-733) XRCC6 (NM_001469) 2-13 (1-610) YAP1 (NM_001130145) 1-9 (1-505) YES1 (NM_005433) 2-12 (1-544) ZFHX3 (NM_006885) 2-10 (1-3704) XRG105 (NM_006526) 1-4 (11049) ZNJ738 (NM_025069) 1-2 (1591) ZRSR2 (NM_005089) 1-4 (1-104), 5-11 (106-483) E. APPENDIX References: 1.https://pubmed.nc bi.nlm.nih.gov/5482 7732, 2.https://pubmed.nc bi.nlm.nih.gov/6046 6131, 3.https://pubmed.nc bi.nlm.nih.gov/0154 8444, 4.https://pubmed.nc bi.nlm.nih.gov/6458 4006, 5.https://pubmed.nc bi.nlm.nih.gov/7659 3637, 6.https://pubmed.[facility].nih.gov/2186 2683, 7.https://pubmed.[facility].nih.gov/1039 8103, 8.https://pubmed.[facility].nih.gov/2013 7967, 9.https://pubmed.[facility].nih.gov/1966 9400, 10.https://pubmed.[facility].nih.gov/205 19512, 11.https://pubmed.[facility].nih.gov/852 4100, 12.https://pubmed.[facility].nih.gov/166 42378, 13.https://pubmed.[facility].nih.gov/222 63041, 14.https://pubmed.[facility].nih.gov/265 56364, 15.https://pubmed.[facility].nih.gov/191 75654, 16.https://pubmed.[facility].nih.gov/208 52608, 17.https://pubmed.[facility].nih.gov/227 23847, 18.https://pubmed.[facility].nih.gov/188 09064, 19.https://pubmed.[facility].nih.gov/156 91953, 20.https://pubmed.[facility].nih.gov/247 55128, 21.https://pubmed.n i.[facility].nih.gov/234 58465, 22.https://pubmed.n i.[facility].nih.gov/225 09213, 23.https://pubmed.n i.[facility].nih.gov/259 34295, 24.https://pubmed.n i.[facility].nih.gov/314 73593, 25.https://pubmed.[facility].nih.gov/150 31062, 26.https://pubmed.n ezNetPayi.[facility].nih.gov/260 81458, 27.https://pubmed.n ezNetPayi.[facility].nih.gov/269 98491, 28.https://pubmed. ezNetPayi.nlm.nih.gov/299 42167, 29.https://pubmed.n ezNetPayi.nlm.nih.gov/293 58908, 30.https://pubmed.n ezNetPayi.nlm.nih.gov/281 71345, 31.https://pubmed.n ezNetPayi.[facility].nih.gov/299 17904, 32.https://pubmed.n ezNetPayi.[facility].nih.gov/295 70733, 33.https://pubmed.n ezNetPayi.[facility].nih.gov/234 24812, 34.https://pubmed.n ezNetPayi.[facility].nih.gov/258 11482, 35.https://pubmed.n ezNetPayi.[facility].nih.gov/220 60200, 36.https://pubmed.n ezNetPayi.[facility].nih.gov/226 38453, 37.https://pubmed.n ezNetPayi.[facility].nih.gov/194 49601, 38.https://pubmed.n ezNetPayi.[facility].nih.gov/190 53595, 39.https://pubmed.n ezNetPayi.[facility].nih.gov/273 97895, 40.https://pubmed.n ezNetPayi.nlm.nih.gov/268 29088, 41.https://pubmed.n ezNetPayi.nlm.nih.gov/252 99668, 42.https://pubmed.n ezNetPayi.nlm.nih.gov/235 97583, 43.https://pubmed.n ezNetPayi.nlm.nih.gov/271 67222, 44.https://pubmed.n ezNetPayi.nlm.nih.gov/270 83081, 45.http://meetingli brary.asco.org/alexandria rd/110558/abstract, 46.https://pubmed.n ezNetPayi.nlm.nih.gov/266 83184, 47.https://pubmed.n ezNetPayi.nlm.nih.gov/221 52489, 48.https://pubmed.n ezNetPayi.nlm.nih.gov/267 24265, 49.https://pubmed.n ezNetPayi.nlm.nih.gov/247 81217, 50.https://pubmed.n ezNetPayi.nlm.nih.gov/206 80385, 51.https://pubmed.n ezNetPayi.nlm.nih.gov/274 85561, 52.https://pubmed.n ezNetPayi.nlm.nih.gov/265 45064, 53.https://pubmed.n ezNetPayi.nlm.nih.gov/181 00530, 54.https://pubmed.n ezNetPayi.nlm.nih.gov/305 37106, 55.https://pubmed.n ezNetPayi.nlm.nih.gov/117 25602, 56.https://pubmed.n ezNetPayi.nlm.nih.gov/292 60471, 57.https://pubmed.n ezNetPayi.nlm.nih.gov/254 99224, 58.https://pubmed.n ezNetPayi.nlm.nih.gov/255 76254, 59.https://pubmed.n ezNetPayi.nlm.nih.gov/862 6650, 60.http://cancerres .aacrjournals.org/c ontent/77/13_Supple ment/1447, 61.https://pubmed.n ezNetPayi.nlm.nih.gov/175 73523, 62.https://pubmed.n ezNetPayi.nlm.nih.gov/183 49026, 63.https://pubmed.n ezNetPayi.nlm.nih.gov/234 26315, 64.https://pubmed.n ezNetPayi.nlm.nih.gov/221 81300, 65.https://www.acce ssdata.fda.gov/drug satfda_docs/label/2 025/489687a260vpt.p df, 66.https://pubmed.n ezNetPayi.nlm.nih.gov/376 03342, 67.https://pubmed.n ezNetPayi.nlm.nih.gov/109 36588, 68.https://pubmed.n ezNetPayi.nlm.nih.gov/205 74030, 69.https://pubmed.n ezNetPayi.nlm.nih.gov/257 87029, 70.https://pubmed.n ezNetPayi.nlm.nih.gov/301 16670, 71.https://pubmed.n ezNetPayi.nlm.nih.gov/351 67256, 72.https://pubmed. ezNetPayi.[facility].nih.gov/373 30181, 73.https://pubmed.CodeHSi.[facility].nih.gov/160 65074, 74.https://pubmed.Ium.[facility].nih.gov/273 78467, 75.https://pubmed. [employer].[facility].nih.gov/114 87666, 76.https://pubmed. [employer].[facility].nih.gov/209 25959, 77.https://pubmed. [employer].[facility].nih.gov/318 73250, 78.https://pubmed. [employer].[facility].nih.gov/200 20132, 79.https://pubmed. [employer].[facility].nih.gov/970 7426, 80.https://pubmed. ezNetPayi.[facility].nih.gov/911 4050, 81.https://pubmed. ezNetPayi.[facility].nih.gov/125 44673, 82.https://pubmed.Ium.[facility].nih.gov/808 0050, 83.https://pubmed. ezNetPayi.[facility].nih.gov/151 58522, 84.https://pubmed.CodeHSi.[facility].nih.gov/185 91478, 85.https://pubmed.CodeHSi.[facility].nih.gov/296 73220, 86.https://pubmed. ezNetPayi.[facility].nih.gov/164 37375, 87.https://pubmed.CodeHSi.[facility].nih.gov/125 17550, 88.https://pubmed.CodeHSi.[facility].nih.gov/127 29089, 89.https://pubmed.CodeHSi.[facility].nih.gov/306 77415, 90.https://pubmed.CodeHSi.[facility].nih.gov/335 42908, 91.https://pubmed.CodeHSi.[facility].nih.gov/310 44625, 92.https://pubmed.CodeHSi.[facility].nih.gov/155 26139, 93.https://pubmed.CodeHSi.[facility].nih.gov/171 48068, 94.https://pubmed.n i.nlm.nih.gov/155 50103, 95.https://pubmed.n i.nlm.nih.gov/257 40727, 96.https://pubmed.n i.nlm.nih.gov/177 49385, 97.https://pubmed.n i.nlm.nih.gov/163 47783, 98.https://pubmed.n i.nlm.nih.gov/255 81450, 99.https://pubmed.n i.nlm.nih.gov/117 97445, 100.https://pubmed. ncbi.nlm.nih.gov/28 510181, 101.https://pubmed. ncbi.nlm.nih.gov/25 478452, 102.https://pubmed. ncbi.nlm.nih.gov/29 309179, 103.https://pubmed. ncbi.nlm.nih.gov/15 687782, 104.https://pubmed. ncbi.nlm.nih.gov/22 024736, 105.https://pubmed. ncbi.nlm.nih.gov/32 505137, 106.https://pubmed. ncbi.nlm.nih.gov/11 167162, 107.https://pubmed. ncbi.nlm.nih.gov/ 254164, 108.https://pubmed. ncbi.nlm.nih.gov/17 284271, 109.https://pubmed. ncbi.nlm.nih.gov/30 140519, 110.https://pubmed. ncbi.nlm.nih.gov/ 713164, 111.https://pubmed. ncbi.nlm.nih.gov/30 999717, 112.https://pubmed. ncbi.nlm.nih.gov/16 299426, 113.https://pubmed. ncbi.nlm.nih.gov/78 98636, 114.https://pubmed. ncbi.nlm.nih.gov/27 845196, 115.https://pubmed. ncbi.nlm.nih.gov/17 853109, 116.https://pubmed. ncbi.nlm.nih.gov/31 690812, 117.https://pubmed. ncbi.nlm.nih.gov/ 685601, 118.https://pubmed. ncbi.nlm.nih.gov/29 909394, 119.https://pubmed. ncbi.nlm.nih.gov/ 141183, 120.https://pubmed. ncbi.nlm.nih.gov/24 794826, 121.https://pubmed. ncbi.nlm.nih.gov/ 497645, 122.https://pubmed. ncbi.nlm.nih.gov/ 321540, 123.https://pubmed. ncbi.nlm.nih.gov/ 226356, 124.https://pubmed. ncbi.nlm.nih.gov/ 810873, 125.https://pubmed. ncbi.nlm.nih.gov/ 513858, 126.https://pubmed. ncbi.nlm.nih.gov/ 690049, 127.https://pubmed. ncbi.nlm.nih.gov/ 928124, 128.https://pubmed. ncbi.nlm.nih.gov/ 242592, 129.https://pubmed. ncbi.nlm.nih.gov/ 245201, 130.https://pubmed. ncbi.nlm.nih.gov/ 85549, 131.https://pubmed. ncbi.nlm.nih.gov/ 008832, 132.https://pubmed. ncbi.nlm.nih.gov/ 096396, 133.https://pubmed. ncbi.nlm.nih.gov/ 518225, 134.https://pubmed. ncbi.nlm.nih.gov/ 361452, 135.https://pubmed. ncbi.nlm.nih.gov/ 46857, 136.https://pubmed. ncbi.nlm.nih.gov/ 797254, 137.https://pubmed. ncbi.nlm.nih.gov/14 701723, 138.https://pubmed. ncbi.nlm.nih.gov/30 122471, 139.https://pubmed. ncbi.nlm.nih.gov/ 22415, 140.https://pubmed. ncbi.nlm.nih.gov/ 209087, 141.https://pubmed. ncbi.nlm.nih.gov/ 004611, 142.https://pubmed. ncbi.nlm.nih.gov/ 488468, 143.https://pubmed. ncbi.nlm.nih.gov/15 086953, 144.https://pubmed. ncbi.nlm.nih.gov/15 337166, 145.https://pubmed. ncbi.nlm.nih.gov/ 795007, 146.https://pubmed. ncbi.nlm.nih.gov/ 372083, 147.https://pubmed. ncbi.nlm.nih.gov/ 898961, 148.https://pubmed. ncbi.nlm.nih.gov/ 525074, 149.https://pubmed. ncbi.nlm.nih.gov/30 281131, 150.https://pubmed. ncbi.nlm.nih.gov/ 167472, 151.https://pubmed. ncbi.nlm.nih.gov/ 055296, 152.https://pubmed. ncbi.nlm.nih.gov/ 241593, 153.https://pubmed. ncbi.nlm.nih.gov/ 209487, 154.https://pubmed. ncbi.nlm.nih.gov/ 439830, 155.https://pubmed. ncbi.nlm.nih.gov/ 466940, 156.https://pubmed. ncbi.nlm.nih.gov/32 887850, 157.https://pubmed. ncbi.nlm.nih.gov/30 098498, 158.https://pubmed. ncbi.nlm.nih.gov/ 528776, 159.https://pubmed. ncbi.nlm.nih.gov/29 631898, 160.https://pubmed. ncbi.nlm.nih.gov/ 326619 Table 1: Covered genes of interest for SNVs, INDELs and CNVs ABL1 BRCA1 CTNNA1 ETV4 GNA13 IRF2 MGMT PAXX PTPN11 SDHC OJ ABL2 BRCA2 CTNNB1 ETV5 GNAQ IRF4 MITF PBRM1 PTPRB SDHD TENT5C ABRAXAS1 BRD4 CUL3 ETV6 GNAS IRS1 MLH1 PCNA PTPRD SESN1 TERC* ACVR1 BRIP1 CUL4A EWSR1 GPS2 IRS2 MLH3 PDCD1 PTPRS SETBP1 TERT^ ACVR1B BTG1* CUL4B EXO1 GRIN2A JAK1 MPL [id number] PTPRT SETD2 TET1 ACVR2A BTG2* CUX1 EZH2 GRM3 JAK2 MRE11 PDGFB QKI SF3B1 TET2 ADGRA2 BTK CXCR4 FADD GSK3B JAK3 MSH2 PDGFRA RAB35 SGK1 TFE3 AJUBA BUB1 CYLD FANCA H1-2* MACEY MSH3 PDGFRB RAC1 SH2B3 TGFB1 AKT1 CALR [id number] FANCC H2AX* KAT6A MSH6 PDK1 RAD21 SH2D1A TGFBR1 AKT2 CARD11 DAXX FANCD2 H2BC5* KDM5A MST1 PER1 RAD50 SHLD1 TGFBR2 AKT3 CASP8 OFFNA6Z FANCE H3-3A* KDM5C MST1R PGD RAD51 SHLD2 VNFL832 AKTIP CBFB QBEZ0E2 FANCF H3-3B* KDM6A MTAP PGR [id number] SHPRH TMPRSS2 ALK CBL DDB1 FANCG H3-4* KDR MTOR PHF6 RAD51B SHQ1 TNF BODQ79F CCN6 DDR1 FANCI H3-5* KEAP1 MUTYH PHOX2B RAD51C LMX12H8 TNFAIP3 AMER1 CCNA2 DDR2 FANCL H3C1* MARK MXD4 CHA7T1F RAD51D SLIT2 NASGNV36 ANKRD11 CCND1 DDX3X FANCM H3C10* KIT MYB LYF0U6S RAD52 SLX4 TOP1 APC CCND2 DICER1 FAS H3C11* KLF4 MYC PIK3C3 RAD54L SMAD2 TOP2A AR CCND3 DIS3 FAT1 H3C12* KLHL6 MYCL PIK3CA RAF1 SMAD3 TOP3A ARAF CCNE1 DLL3 FBXW7 H3C13* KMT2A MYCN PIK3CB REED SMAD4 TOPBP1 ARFRP1 CD274 DNA2 FGF10 H3C2* KMT2B MYD88 PIK3CD RASA1 SMARCA2 TP53 ARID1A CD276 DNAJB1 FGF14 H3C3* KMT2C MYOD1 PIK3CG RB1 SMARCA4 WF45QP9 ARID1B CD74 DNMT1 FGF19 H3C4* KMT2D NBN PIK3R1 RBM10 SMARCAD1 TP53I3 ARID2 CD79A DNMT3A FGF23 H3C6* KNSTRN NCOA3 PIK3R2 RECQL4 SMARCB1 TP63 ARID5B CD79B DNMT3B FGF3 H3C7* KRAS NCOR1 PIK3R3 REL SMARCD1 TRAF2 ASCC3 CD8A DOT1L FGF4 H3C8* LATS1 NEGR1 PIM1 RET SMC1A TRAF7 ASPM CDC20 E2F3 FGF5 HDAC2 LATS2 NF1 PLCG1 REV3L SMC3 ZPCPWT60 ASXL1 CDC27 EED FGF6 HDAC9 LCK NF2 PLCG2 RFC1 SMC5 TSC1 ASXL2 CDC6 EGFL7 FGF9 HELQ LIG4 NFE2L2 PLK2 RFC2 SMC6 TSC2 CATRACHO CDC73 EGFR FGFR1 HERC2 LMO1 NFKBIA PMAIP1* RFC3 SMO TSHR ATR CDH1 EIF1AX FGFR2 HFM1 LRP1B NHEJ1 PML RFC4 SNCAIP TTK ATRX CDK12 EIF4A2 FGFR3 HGF YAO NKX2-1 PMS1 RFC5 SOCS1 TYRO3 AURKA CDK2 EIF4E FGFR4 HLA-A MAD2L2 NKX3-1 PMS2 RHEB SOS1 U2AF1 AURKB CDK4 ELF3 FH HNF1A MAGOH NOTCH1 PNKP RHOA SOX10 VEGFA AURKC CDK6 ELOC FLCN HOXB13 MALT1 NOTCH2 PNRC1 RICTOR SOX17 VHL AXIN1 CDK8 EMSY FLT1 HRAS MAP2K1 NOTCH3 POLA1 RIF1 SOX2 VTCN1 AXIN2 CDKN1A ENO1 FLT3 HSD3B1 MAP2K2 NOTCH4 POLD1 RIT1 SOX9 WRN SAMIR CDKN1B EP300 FLT4 UXH12IM4 MAP2K4 NPM1 POLE RMI1 SPEN WT1 B2M CDKN2A EPCAM FOXA1 [id number] MAP2K7 NRAS POLQ RMI2* SPOP XIAP BAP1 CDKN2B EPHA2 FOXL2 ICOSLG MAP3K1 NSD1 PPARG RNF43 SRC XPO1 BARD1 CDKN2C* EPHA3 FOXO1 ID3* EUL4Q48 NSD3 PPM1D ROS1 SRSF2 XRCC2 BBC3 CEBPA EPHA5 FOXP1 IDH1 JCE4T79 NT5C2 MVI3O6K RPA1 SSBP1 XRCC3 BCL10 CENPA EPHA7 FRS2 IDH2 MAP3K4 NTRK1 EQK0U0U RPA2 STAG2 XRCC4 BCL11A CENPE EPHB1 FTO IFNGR1 MAPK1 NTRK2 JCH1X8W RPA3* STAT3 XRCC5 BCL2 CHAF1A ERBB2 FUBP1 IGF1 MAPK3 NTRK3 PPP4R4 RPA4 STAT4 XRCC6 BCL2L1 CHEK1 ERBB3 FYN IGF1R MAPK8 NUP93 PPP6C LGJ0BT1 STAT5A YAP1 KAA5I76 CHEK2 ERBB4 GABRA6 IGF2 MAX NUTM1 PRC1 ZDD7WC7 STAT5B YES1 BCL2L2* CIC ERCC1 [id number] IKBKE MCL1 PAK1 PRDM1 IFM8SJ4 STK11 ZFHX3 BCL6 COL2A1 ERCC2 GATA1 IKZF1 MDC1 PAK3 PREX2 RPTOR STK19 WMV789 BCOR COP1 ERCC3 GATA2 IL10 MDM2 PAK5 PRG4 RSPO1 STK40 OMY840 BCORL1 CREBBP ERCC4 GATA3 IL7R MDM4 PALB2 RJZAZ6M RSPO2 SUFU ZRSR2 BCR CRKL ERCC5 GATA4 INHA MED12 PARP1 PRKCI RUNX1 SUZ12 BIRC2 CRLF2 ERCC6 GATA6 INHBA MEF2B PARP2 PRKDC LWTW4V8 SYK BIRC3 CSF1R ERG GEN1 INO80 MEN1 PARP3 PRKN RYBP TBC1D4 BLM CSF3R ERRFI1 GID4 INPP4A MERTK PARP4 PTCH1 SDHA TBX3 BMPR1A CTCF ESR1 GLI1 INPP4B MET PARPBP PTEN SDHAF2 TCF3 BRAF CTLA4 ETV1 GNA11 INSR MGA PAX5 PTK2 SDHB TCF7L2 *Gene not included for CNV reporting, ^ Includes promoter region, ncRNA Gene Table 2. Genes with select intronic regions for the detection of DNA-based gene rearrangements ALK introns: 18-19 BRCA2 introns: 2 ETV4 introns: 5-6 EZR introns: 9-11 KIT introns: 16 MYB introns: 14 NTRK2 introns: 12 REED introns: 2 SDC4 introns: 2 BCR introns: 7-10 CD74 introns: 6-8 ETV5 introns: 6-7 FGFR1 introns: 1,5,17 KMT2A introns: 6-11 MYC introns: 1 NUTM1 introns: 1 RET introns: 7-11 VCA66F8 introns: 4 BRAF introns: 7-10 EGFR introns: 7,15,24-27 ETV6 introns: 5-6 FGFR2 introns: 1,17 MET* introns 13,14 NOTCH2 introns: 26 PDGFRA introns: 7,9,11 ROS1 introns: 31-35 TMPRSS2 introns: 1-3 BRCA1 introns: 2,7-8,12,16,19-20 EML4 introns: 6,13 EWSR1 introns: 7-13 FGFR3 introns: 17 MSH2 introns: 5 NTRK1 introns: 8-10 RAF1 introns: 4-8 RSPO2 introns: 1 *Targeted for MET exon 14 skipping assessment DISCLAIMER: This test was developed and its performance characteristics determined by the Molecular Diagnostic Laboratory (MDL) at the [facility]. It has not been cleared by the U.S. Food and Drug Administration. However, such approval is not required for clinical implementation, and the test results on the ordered genes have been shown to be clinically useful. This laboratory is CAP accredited and CLIA certified to perform high complexity molecular testing for clinical purposes. 12/27/2024 4:56 PM CDT [facility] Pathologist Signature . Test performed on 12/26/2024 12/27/2024 4:56 PM CDT MOLECULAR DIAGNOSTICS Microsatellite Instability (MSI) by NGS MSI-Stable 12/27/2024 4:56 PM CDT [facility] Tumor Mutational [place] (TMB) 2 mut/Mb 12/27/2024 4:56 PM CDT [facility] Tissue Non-blood Collection / Unknown 12/12/2024 10:43 AM CDT 12/12/2024 10:43 AM CDT Narrative This result has genomic variants that were not included in this document. us Ashlyn AGUILLON [facility] AP MOLECULAR BIOMARK ERS Final Result [facility] [address] [address], MOLECULAR DIAGNOSTICS [facility] [place] [facility] [address] [place] [address] * Solid Tumor Genomic Assay Fusions 2018 Interpretation and Report (12/12/2024 10:43 AM CDT) Source Material [id number] 6:46 AM CDT [facility] Tumor Block E1 01/02/2025 6:46 AM CDT [facility] Interpretation [facility] [id number] Solid Tumor Genomic Assay 2018 - RNA (Fusions) Clinical test requisition for fusion studies on the following genes was received: NTRK1, NTRK2, NTRK3 A next generation sequencing (NGS)-based analysis for the detection of targeted inter- and intragenic fusions involving 51 genes was performed. 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 Methodology: Test platform: cDNA prepared from extracted RNA is combined with targeted amplicon based next generation sequencing (NGS) to amplify both a set of expected control RNA sequences and a set of targeted fusion sequences corresponding to clinically relevant known inter- and intragenic fusions in 51 genes (AKT2, ALK, AR, SAMIR, BRAF, BRCA1, BRCA2, CDKN2A, EGFR, ERBB4, ERBB2, ERG, ESR1, ETV1, ETV4, ETV5, FGFR1, FGFR2, FGFR3, FGR, FLT3, JAK2, KRAS, MDM4, MET, MYB, MYBL1, NF1, NOTCH1, NOTCH4, NRG1, NTRK1, NTRK2, NTRK3, NUTM1, PDGFRA, PDGFRB, PIK3CA, PPARG, PRKACA, PRKACB, PTEN, RAD51B, RAF1, RB1, RELA, RET, ROS1, RSPO2, RSPO3, and TERT). Sequences are aligned against a synthetic fusion genome and fusions are identified by coverage analysis. Detailed information about the signal-processing, base calling, alignment, and fusion calling including specific fusion partners and break-points, are available upon request. Analytical sensitivity and additional details: Assessing sensitivity/limit of detection for a non-cellular fusion assay is challenging because fusion messenger RNA is likely to be expressed idiosyncratically and non-uniformly with respect to cellular/genomic equivalents. Sensitivity of detection is expected to be influenced both by this expression level and the tumor purity of the sample. Detection of a particular clinical fusion event for this assay requires that both fusion partners and the specific fusion junction between them be flanked by the amplicon primers used. Adequacy of RNA sampling is ensured by requiring that a sample have a minimum of 500,000 mapped cDNA target reads with a minimum average sequence length of 60 base pairs. Details and limitations of the test: - False negative results can be obtained in cases with low fusion RNA expression, low tumor percentage, or fusions that do not correspond exactly to the targeted fusion junctions on the assay. We require a minimum of 20% tumor nuclei in the sample to reduce the potential for false-negative results. Correlation with traditional methods of fusion detection such as fluorescent in situ hybridization (FISH) is recommended as applicable. Report annotation and generation software: A post-variant calling analysis and annotation tool, [employer] version 2.1.0.9, was used in the construction of this report. DISCLAIMER: This test was developed and its performance characteristics determined by the Molecular Diagnostic Laboratory (MDL) at the [facility] [place]. It has not been cleared by the U.S. Food and Drug Administration. However, such approval is not required for clinical implementation, and the test results on the ordered genes have been shown to be clinically useful. This laboratory is CAP accredited and CLIA certified to perform high complexity molecular testing for clinical purposes. 01/02/2025 6:46 AM CDT [facility] Pathologist Signature . Test performed on 12/26/2024 01/02/2025 6:46 AM CDT MOLECULAR DIAGNOSTICS Tissue Non-blood Collection / Unknown 12/12/2024 10:43 AM CDT 12/12/2024 10:43 AM CDT us Ashlyn AGUILLON [facility] AP MOLECULAR BIOMARK ERS Final Result [facility] [address] [address], MOLECULAR DIAGNOSTICS [facility] [place] [facility] [address] [place] [address] * Microsatellite Instability (MSI) Analysis Interpretation and Report (12/12/2024 10:43 AM CDT) Source Material [id number] 7:03 PM CDT [facility] Tumor Block E1 12/21/2024 7:03 PM CDT [facility] MSI Interpretation Microsatellite-st able tumor. 12/21/2024 7:03 PM CDT MOLECULAR DIAGNOSTICS MSI Methodology DNA extracted from microdissected paraffin-embedded tumor (T) sections from block E1 and non-neoplastic tissue (N) from block PB was analyzed by a PCR-based method followed by capillary electrophoretic detection. A panel of seven microsatellite markers (BAT25, BAT26, BAT40, B3I759, L2Q505, C38Z070 and TGFBR2) was evaluated to detect changes in the number of microsatellite repeats in tumor as compared to normal tissue. No allelic shift was detected in the tested microsatellite markers. Test performed on 12/21/2024 12/21/2024 7:03 PM CDT MOLECULAR DIAGNOSTICS ASR DISCLAIMER This test was developed and its performance characteristics determined by the Molecular Diagnostics Laboratory (MDL) at [facility]. It has not been cleared or approved by the U.S. Food and Drug Administration (FDA). The FDA has determined that such clearance or approval is not necessary. This test is used for clinical purposes. This laboratory is certified under the Clinical Laboratory Improvement Act (CLIA) of 1988 to perform high complexity clinical laboratory testing. 12/21/2024 7:03 PM CDT [facility] Pathologist Signature . 12/21/2024 7:03 PM CDT MOLECULAR DIAGNOSTICS Tissue Non-blood Collection / Unknown 12/12/2024 10:43 AM CDT 12/12/2024 10:43 AM CDT us Ashlyn Leslieloretta AGUILLON [facility] MOLECULAR BIOMARK ERS Final Result MOLECULAR DIAGNOSTICS [facility] [address] [place] [address] [facility] [address] [place] [address], [place] * Pain Management Fluoroscopy (12/12/2024 8:45 AM CDT) 12/12/2024 11:0 7 AM CDT Narrative Systemgenerated, Documentation - 12/12/2024 8:45 AM CDT This procedure requires no interpretation from the radiologist. Figueroa Humphreys MD IMG NON DI ORDERABLES Final Resu lt * CELIAC/SPLANCHNIC PLEXUS NEUROLYTIC BLOCK (12/12/2024 8:42 AM CDT) Narrative Figueroa Humphreys MD - 12/12/2024 8:42 AM CDT Marielos Laws MD 12/12/2024 12:02 PM Celiac/Splanchnic Plexus Neurolytic Block Laterality (if applicable): bilateral Date/Time: 12/12/2024 8:42 AM Provider Information: Performed by: Marielos Laws MD Authorized by: Figueroa Humphreys MD Soap Grinder present?: no Patient Diagnosis: Post-operative diagnosis: unchanged Indication: Indications for procedure: to provide therapeutic benefit Anesthesia: Local anesthesia used?: Yes Local anesthetic: lidocaine 1% without epinephrine Sedation: Patient sedated?: patient not sedated Procedure Details: Patient: Joaquin Valera Age: 74 y.o. Attending: Figueroa Russell MD Date of Visit: December 12, 2024 PAIN MEDICINE CLINIC PROCEDURE NOTE ATTENDING CLINICIAN: Figueroa Humphreys MD SPICE MIXER CLINICIAN: Marielos Laws MD PREPROCEDURE DIAGNOSES: 1. Chronic abdominal pain 2. Cancer associated pain POSTPROCEDURE DIAGNOSES: 1. Chronic abdominal pain 2. Cancer associated pain PROCEDURE(S) PERFORMED: 1. Bilateral splanchnic neurolysis 2. Fluoroscopic guidance for the above-named procedure(s) ANESTHESIA: Local. BLOOD LOSS: Minimal. DRAINS AND SPECIMENS: None. COMPLICATIONS: None. INDICATIONS: Joaquin Valera is a 74 y.o. 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 The patient stated that the patient was in their usual state of health, denied any recent infections, and denied recent anticoagulant use. Therefore, the plan is for a bilateral splanchnic neurolysis. Procedure Details: The patient was met in the procedure room, where the patient was identified by name, medical record number and date of . All of the patient's last minute questions were answered. Written informed consent was obtained and saved in the electronic medical record, after the risks, benefits, and alternatives were discussed with the patient. A formal time-out procedure was performed by Figueroa Russell MD, as per protocol, including patient name, title of procedure, and site of procedure, and all in the room concurred. Routine monitors were applied. IV access was established and an infusion of 0.9% normal saline was started. The patient was placed in the prone position on the procedure room table. All pressure points were checked and comfortably padded. Routine monitors were placed. Vital signs were stable. A Chloraprep and betadine sterile prep of the thoracolumbar area was completed followed by sterile draping per standard procedure. Under AP radiographic guidance, the T12 vertebral body was visualized. Next, using an oblique fluoroscopic view, the T12 transverse process was superimposed over the lateral border of the vertebral body on the right side. The skin and subcutaneous tissue overlying the right lateral border of the T12 vertebral body was marked and infiltrated with 6 mL of 1% Lidocaine using a 25 gauge 1.5 inch needle. Next, a 22 gauge, 5 inch spinal needle was advanced under radiographic guidance. Then, the spinal needle was advanced to contact the lateral aspect of the T12 vertebral body under AP. After the needle was walked off the bone, underlying the lateral radiographic guidance, the needle was gently advanced to reach the anterior border of the vertebral body. Aspiration was negative for blood, air, or CSF. The correct needle placement was confirmed with 1 mL of Omnipaque contrast dye, with appropriate needle adjustments under fluoroscopic guidance as necessary. The same procedure was repeated on the left side. Following negative aspiration and a negative test dose, the patient received a total of 6 mL of chloroprocaine in multiple divided doses with negative aspiration prior to each dose on each side. After waiting for 10 minutes, motor strength was tested in the bilateral lower extremities, and found to be intact. Then, after negative aspiration, 6 mL of 98% ethyl alcohol was injected in multiple divided doses with negative aspiration prior to each dose, over the course of 3 minutes on each side. Then, after negative aspiration, 1 mL of a treatment mixture containing 1 mL of 40 mg/mL Triamcinolone and 9 mL of 0.25% Bupivicane was injected during needle withdrawal to prevent back flow of alcohol. The needle was then removed intact. The same procedure was repeated on the left side. Light pressure was held at the puncture site(s) to prevent ecchymosis and oozing. The patient's back was cleansed, and hemostasis was confirmed. Band-aids were applied to the needle injection site(s). The patient tolerated the procedure well. There were no apparent immediate post-procedure complications. The patient's motor function was intact in the bilateral lower extremities. Condition: The patient remained hemodynamically and neurologically stable throughout the procedure. The patient tolerated the procedure well and was monitored for approximately 30 minutes afterward in the post procedure area. There were no immediate post procedure complications noted. The patient's motor function remained intact. The patient was then discharged to home as per protocol. The patient will return for follow up in our outpatient clinic in 1 month(s), or as otherwise clinically indicated. Patient condition stable. The attending, Figueroa Russell MD, was present for the entirety of the procedure, and formulated the above assessment and plan. Specimen(s) Removed: Specimen(s) removed: no specimen collected Estimated Blood Loss: Estimated blood loss: none Complications: Complications: none Patient Disposition: Patient disposition: discharge to home Comments: Marielos Laws MD Pain Fellow [facility] Figueroa Humphreys MD PROCEDURE/MINOR SURGICAL ORDERAB LES Final Result * (ABNORMAL) POC Urine Drug Screen (Lab Result Entry) (12/07/2024 11:35 AM CDT) Pathologist [facility] POC U Amphetamine Negative Negative 025 11:24 AM CDT [facility] Comment:Drug Abuse Cutoff Co ncentration: 1000 ng/mL POC U Barbiturates Negative Negative 2024 11:24 AM CDT [facility] Comment:Drug Abuse Cutoff Co ncentration: 300 ng/mL POC U Benzodiazepines Negative Negative 12/09/2024 11:24 AM CDT [facility] Comment:Drug Abuse Cutoff Co ncentration: 300 ng/mL POC U Cocaine Negative Negative 12/09/2024 11:24 AM CDT [facility] Comment:Drug Abuse Cutoff Co ncentration: 300 ng/mL POC U THC Positive(A) Negative 12/09/2024 11:24 AM CDT [facility] Comment:Drug Abuse Cutoff Co ncentration: 50 ng/mL POC U Methadone Negative Negative 11:24 AM CDT [facility] Comment:Drug Abuse Cutoff Co ncentration: 300 ng/mL POC U Methamphetamine Negative Negative 12/09/2024 11:24 AM CDT [facility] Comment:Drug Abuse Cutoff Co ncentration: 1000 ng/mL POC U Opiate/Morphine Positive(A) Negative 12/09/2024 11:24 AM CDT [facility] Comment:Drug Abuse Cutoff Co ncentration: 2000 ng/mL POC U Oxycodone Negative Negative 11:24 AM T [facility] Comment: Drug Abuse Cutoff Concentration: 100 ng/mL Due to the assay cross reactivity between Oxycodone and Opiates, and lower sensitivity compared to GC-MS method, the test results may be falsely positive or falsely negative. Confirmation with concurrent GC-MS results is recommended. POC U Phencyclidine Negative Negative 12/09/2024 11:24 AM CDT [facility] Comment:Drug Abuse Cutoff Co ncentration: 25 ng/mL POC U Tricyclic Antidepressants Negative Negative 12/09/2024 11:24 AM CDT [facility] Comment:Drug Abuse Cutoff Co ncentration: 1000 ng/mL POC U Propoxyphene Negative Negative 2024 11:24 AM CDT [facility] Comment:Drug Abuse Cutoff Co ncentration: 300 ng/mL Urine Voided urine specimen / Unknown Non-blood Collection / Unknown 12/07/2024 11:35 AM CDT 12/09/2024 11:21 AM CDT Narrative [facility] - 12/09/2024 11:24 AM CDT Method description: The one step multi-drug screen test card with integrated iCup is an immunoassay based competitive binding assay. Drugs which may be present in the urine specimen compete against their respective drug conjugate for binding sites on their specific antibody. During testing, a urine specimen migrates upward by capillary action. The presence of drug above the cut-off concentration will saturate all the binding sites of the antibody. The antibody will react with the drug- protein conjugate and a visible colored line will show up in the test region. A drug- positive urine specimen will not generate a colored line in the specific test region of the strip because of drug competition, while a drug-negative urine specimen will generate a line in the test region because of the absence of drug competition. The POC Urine Qualitative Drug Screen Panel report is intended for use in clinical monitoring or management of patients. Unconfirmed screening results must not be used for non-medical purposes such as legal or employment-related testing. us Figueroa Humphreys MD LAB BLOOD ORDERABLES Final Resul t [facility] Unless otherwise noted, all lab tests performed by: Division of Pathology and Laboratory Medicine [address] [place] [id number] * Archived Material Retrieval (12/05/2024 11:29 AM CDT) Archived Material The test is to be performed on tissue from case [id number]. The case report, slides, and block(s) for the cited accession were retrieved from archives. The pathologist examined the candidate slides and selected case material appropriate to the specifications of the ordered molecular analysis. Unstained sections from the FFPE block, marketing sales representative H&E slide(s), and/or tumor-mapped smear(s) were prepared and forwarded to the Molecular Diagnostic Laboratory where the subject molecular test will be performed. Results will be reported separately. 12/20/2024 10:48 AM CDT [facility] Pathologist Signature 12/20/2024 10:48 AM CDT [facility] Tissue 12/05/2024 11:2 9 AM CDT 12/13/2024 8:30 AM CDT us Senia Mason MD [facility] IP AP BIOMARKERS Final Result [facility] [place] [id number], * Pathology Biopsy Interpretation (12/05/2024 11:08 AM CDT) Only the most recent of2 resultswithin the time period is included. Addendum 2 Immunohistochemical studies were performed on formalin-fixed paraffin embedded sections of adenocarcinoma from transverse colon biopsy (Block: E1), as follows: HER-2/lorelei (4B5, [place] [facility]) Cancer cell cluster * with a faint or barely perceptible membranous reactivity irrespective of percentage of cancer cells positive 1+, negative (gastric/gastroesopha geal junction carcinoma criteria) *Cancer cell cluster consisting of >/= 5 neoplastic cells. FOOTNOTE: Reference: Jacoby FIELDS, Norbert Pena E, Camille Dodd, et al. Trastuzomab in combination with chemotherapy versus chemotherapy alone for treatment of HER2-positive advanced gastric or gastro-oesophageal junction cancer (ToGA): a phase 3, open label, randomized controlled trial. Lancet. 2010;376:687-697. PD-L1 (clone [id number], [employer], manual analysis) Tumor Proportion Score (TPS) = 0% CLAUDIN 18 (Claudin 18 RxDx Assay, clone [id number], [place]) Tumor cells with 2+ or greater membranous staining intensity: 100% (positive) Assay Information: This assay is manufactured by [employer] and uses a mouse monoclonal anti-claudin 18 antibody, clone [id number]. It is performed on formalin-fixed paraffin-embedded tissue using a [employer] [place] Benchmark Ultra autostainer and a polymer based detection kit, as specified by the dredge hand. It is approved for use as a medicare compliance auditor diagnostic assay for determining Claudin 18 protein expression in patients with gastric or gastroesophageal junction adenocarcinoma who may be eligible for Claudin 18.2-targeted treatment with [employer] VYLOY (zolbetuximab-clzb). Please refer to the therapy package insert for appropriate use of results. Performance characteristics on other tissue types such as decalcified specimens and on non-approved tumor types cannot be guaranteed. 12/19/2024 8:46 PM [facility] Addendum electronically signed by William Gómez MD on 12/19/2024 at 8:46 PM Addendum 1 Intact expression of DNA mismatch repair proteins in tumor by immunohistochemistry. Immunoperoxidase stains for the DNA mismatch repair enzymes MLH1, MSH2, MSH6 and PMS2 show intact nuclear expression. Therefore, the likelihood of defective DNA mismatch repair/high levels of microsatellite instability (MSI-H) in the tumor is low. 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 No intestinal metaplasia or H. Pylori microorganisms identified (H&E). B: Stomach, gastric body, biopsy: Gastric mucosa with chronic inactive gastritis. No intestinal metaplasia or H. Pylori microorganisms identified (H&E). C: Esophagus, inlet patches, biopsy: Squamocolumnar junction mucosa with chronic inflammation and reactive changes No intestinal metaplasia, dysplasia or carcinoma identified. 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 Immunohistochemical stains were performed at [facility] and show cells of interest are positive for CK7, CDX2 (patchy) and SATB2 (patchy) and negative for GATA3, CK20, PAX8, TTF1, NAPSIN-A, NKX3.1. DPC4 shows loss of expression within tumor nuclei.This immunochemical staining profile is nonspecific in term of primary site, but favors a metastasis from an upper gastrointestinal primary (including pancreatic/ biliary adenocarcinoma).Clini kell correlation is recommended. 12/19/2024 8:46 PM CDT [facility] Gross Description A: Stomach, antrum r/o h. pylori: Multiple soft dawson tissue fragments, 0.9 x 0.6 x 0.25 cm in aggregate, entirely submitted in A1. ET B: Stomach, gastric body r/o h. pylori: Multiple soft dawson tissue fragments, 0.7 x 0.3 x 0.2 cm in aggregate, entirely submitted in B1. ET C: Esophagus, inlet patches bx: 2 soft dawson tissue fragments, 0.3 cm each, entirely submitted in C1.. ET D: Colon, polyp at appendix: 2 soft dawson tissue fragments, 0.4 cm and 0.5 cm, entirely submitted in D1. ET E: Colon, transverse colon mass bx: Multiple soft dawson tissue fragments, 1.3 x 0.6 x 0.4 cm in aggregate, entirely submitted in E1. ET F: Rectum, rectal polyps x 2: 2 polypoid dawson pieces of tissue, 0.5 cm and 0.8 cm. The larger piece is sectioned, entirely submitted in F1. The smaller piece is entirely submitted in F2. ET 12/19/2024 8:46 PM CDT [facility] Biomarker Block(s) Block for biomarker testing: E1 Normal block: na 12/19/2024 8:46 PM CDT [facility] Disclaimer "Some tests reported here may have been developed and performance characteristics determined by [facility]. These tests have not been specifically cleared or approved by the U.S. Food and Drug Administration. If applicable, controls were reviewed and showed appropriate reactivity." 12/19/2024 8:46 PM CDT [facility] Tissue (Stomach) 12/05/2024 11:08 AM CDT 12/05/2024 12:30 PM CDT Tissue specimen (specimen) (Stomach) 12/05/2024 11:10 AM CDT 12/05/2024 12:30 PM CDT Tissue specimen (specimen) (Esophagus) 12/05/2024 11:12 AM CDT 12/05/2024 12:30 PM CDT Tissue specimen (specimen) (Colon) 12/05/2024 11:24 AM CDT 12/05/2024 12:30 PM CDT Tissue specimen (specimen) (Colon) 12/05/2024 11:29 AM CDT 12/05/2024 12:30 PM CDT Tissue specimen (specimen) Rectum structure / Unknown 12/05/2024 11:35 AM CDT 12/05/2024 12:30 PM CDT us Senia Mason MD LAB PATHOLOGY ORDERABLES Ed ited Result - Final [facility] [address] [place] [id number], [place] * IR US GUIDED BIOPSY MUSCLE/SOFT TISSUE- PELVIC (12/02/2024 11:05 AM CDT) Anatomical Region Laterality Modality Soft Tissue/Muscle Computed Bj graphy Narrative 12/02/2024 11:28 AM CDT Table formatting from the original result was not included. Date of Procedure: 12/02/24 Attending Physician: Mekhi Marerro MD Soap Grinder: None Pre Procedure Diagnosis: Adenocarcinoma, NOS of unknown primary site Post Procedure Diagnosis: Unchanged Indication: New mass / nodule for tissue diagnosis Protocol Number: N/A Title of Procedure: Percutaneous Ultrasound-Guided Biopsy Operative Findings: Percutaneous image-guided biopsy of 2 cm left paraspinal mass . Consent: The procedure, risks, indications and alternatives were explained. All questions were answered and informed consent was obtained. I have reviewed the history and physical dictated by the KAUSHAL / fellow. Sedation/Anesthesia: Moderate sedation for pain control and anxiety was administered by a dedicated nurse under my supervision. There was continuous monitoring of oxygen saturation, heart rate and intermittent monitoring of blood pressure during the procedure. Medication given was midazolam and fentanyl. I was present for the administration of the medications indicated above. Procedure Events Event Event Time Sedation Start 12/02/2024 10:28 AM Sedation End 12/02/2024 10:49 AM Procedure in Detail: A time out was performed prior to the start of the procedure and the correct patient, procedure, presence of consent, site, and side were confirmed with all members of the team. With the patient in the prone position, the skin overlying the area of interest was prepped and draped in the usual sterile fashion. Lidocaine 1% was used for local anesthesia. Using a posterior approach under Ultrasound image-guidance, a 17 gauge needle was advanced down to the left paraspinal mass . An image was obtained and placed into the medical record. Samples were obtained for evaluation. Sampling: Core Biopsy: An 18 gauge needle used to obtain samples for surgical pathology evaluation. Total number of samples: 6 Specimens Disposition: Diagnostic Biopsy: The biopsy samples were submitted to pathology. Additional Comments: None Estimated Blood Loss: Minimal Immediate Complications: None Disposition: PACU Plan: No follow-up with Interventional Radiology required. Carlos Enriqueclary Jocelin MOLINAN IMG IR ORDERABLES Final Re sult * PETCT F18 FDG (Fluorodeoxyglucose) with contrast (11/23/2024 10:06 AM CDT) Anatomical Region Laterality Modality Whole Body Positron Emissio n Tomography (PET) 11/24/2024 1:42 PM CDT Impressions 11/24/2024 2:36 PM CDT 1. Small foci of uptake in the liver, multiple lung nodules, FDG avid right pleural implants, small to moderate right pleural effusion, multifocal FDG avid osseous lesions and multifocal FDG avid soft tissue lesions are consistent with extensive metastatic disease. 2. Exact site of the primary tumor remains unknown. The dominant the necrotic mass in the pancreas could represent the primary tumor or metastatic disease from unknown primary. The distribution of metastatic disease described above is very atypical for pancreatic primary tumor and more typical for lung malignancy although no definite discrete large lung mass suggestive of primary tumor is seen. Another differential consideration includes metastatic disease from an occult lung primary. Recommend clinical correlation. ACTIONABLE ITEMS/RECOMMENDATIONS*: See impression. *An Actionable Finding is a finding that may be unrelated to the original reason for imaging but potentially actionable, meaning further investigation may be necessary. The Actionable Findings Vigilance Unit (AFVU) assists medical providers with responding to additional radiologic findings that are unexpected and potentially actionable. 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 Baseline staging study. Evaluate for the site of primary. Comparison: No prior studies are available for comparison at the time of this exam interpretation. Technique: F-18 fluorodeoxyglucose 9.2 mCi was administered intravenously via right antecubital vein. To allow for distribution and uptake of radiotracer, the patient was asked to rest quietly for approximately 60-90 minutes. PET/CT imaging was performed from the vertex to proximal thighs. CT scanning was done for attenuation correction, image registration, and diagnosis with scan parameters optimized to minimize radiation exposure to the patient. The CT portion of the examination was performed with intravenous contrast. SUV measurements are reported as maximum SUV based on body weight unless otherwise specified. Findings: Head and Neck:The brain parenchyma demonstrate symmetric tracer uptake. Mild to moderate mucosal thickening of the bilateral maxillary sinuses is seen. Focal uptake in the right submandibular gland posteriorly the maximum SUV of 10 (image 70) could represent metastatic disease. The thyroid gland is unremarkable. Chest: A few mildly enlarged FDG avid anterior mediastinal diaphragmatic lymph nodes are seen. A marketing sales representative middle diaphragmatic node now measures 1.8 x 1 cm with a maximum SUV of 6.1 (image 139). A right anterior diaphragmatic node now measures 1.5 x 1.2 cm with a maximum SUV of 5.9 (image 151). Another right anterior diaphragmatic node now measures 1.4 x 0.9 cm with a maximum SUV of 6.3. Multiple FDG avid right pleural implants are seen along with small to moderate right pleural effusion and right pleural nodularity along the major fissure consistent with pleural metastatic disease. A marketing sales representative right pleural implant 1.1 x 0.7 cm and shows a maximum SUV of 4.2 (image 148). Another right pleural implant shows a maximum SUV of 6.8 (image 130) without any measurable anatomic correlate. Multiple lung nodules are seen measuring up to 1.3 and the majority of these nodules show low-grade tracer uptake. A marketing sales representative juxta hilar right upper lobe nodule measures 1.3 x 0.8 cm and shows a maximum SUV of 5 (image 120). A lingular nodule measures 1.3 x 1 cm with a maximum SUV of 2 (image 127). Multiple other nodules are annotated on series 3. No left pleural effusion is seen. Abdomen and Pelvis: A partially necrotic mass is seen in the pancreatic tail measuring 6.4 x 4 cm and shows a maximum SUV of 7.2 (image 179). This mass is closely abutting the splenic hilum, images in the left kidney upper pole and greater curvature of the stomach. The remaining pancreas is unremarkable. The focal uptake from right pleural implants is projecting over the liver. A few small scattered hypodense lesions are seen in the liver (series 3, images 169, 175, 187) along with few sites of focal uptake. A focus of uptake in the right liver posteriorly shows a maximum SUV of 6 (image 164) and conscious and most likely represents metastasis do not demonstrate from the adjacent 1.3 x 1.4 cm hypodense lesion (image 171). The remaining sites of focal uptake in the liver do not correspond to the hypodensity seen on the CT portion of the exam. The focal sites of uptake in the liver are suspicious for metastatic disease. A few sites of peritoneal uptake without any discrete anatomic abnormality are seen in the left upper quadrant along the splenic flexure (image 196), in the sigmoid mesocolon (image 242) and along the rectosigmoid junction (image 251) without any discrete anatomic correlate and is indeterminate but suspicious for uptake within several peritoneal implants. The gallbladder is well-distended and is unremarkable. The portal veins and hepatic veins are patent. The spleen, adrenal glands and kidneys are unremarkable. Moderate atherosclerotic calcifications of the abdominal aorta are seen. The inferior vena cava is patent and demonstrates normal course and caliber. The urinary bladder is grossly unremarkable. Streak artifact from the right hip replacement hardware is limiting the evaluation of the bladder. Musculoskeletal: Postsurgical changes of right hip replacement are seen resulting in streak artifact in the adjacent right proximal thigh and pelvic soft tissues. Curvilinear uptake and on the process is is likely secondary to evolving postsurgical changes. Extensive FDG avid multifocal osseous metastatic disease is seen including marketing sales representative metastatic disease at C6 with a maximum SUV of 4.6 (image 79), T1 with a maximum SUV of 4.7 (image 87), T5 lamina and spinous process with a maximum SUV of 7.7 (image 110), left T8 transverse process and the images and lamina with a maximum SUV of 7.3 (image 133, T10 vertebral body with a maximum SUV of 10.1 (image 148), left T12 pedicle and articular pillar with a maximum SUV of 8.4 (image 168), right L1 vertebral body with a maximum SUV of 10.9 (image 179), left ischium with a maximum SUV of 6.7 (image 279), right proximal humerus with a maximum SUV of 10 (image 107), left proximal humerus with a maximum SUV of 9.7 (image 113) and left mid femur with a maximum SUV of 11.6 (image 322). In addition, multifocal uptake is seen in the subcutaneous soft tissues and muscles consistent with additional metastasis. A marketing sales representative focus of uptake within the left paraspinous musculature at C1 shows a maximum SUV of 8.7 (image 55). Another marketing sales representative focus of uptake is seen within the soft tissue thickening along the medial aspect of the right maxillary sinus with a maximum SUV of 7.9 (image 53) without any erosive changes in the adjacent bone. Additional soft tissue focal uptake is seen in the right axilla (image 117), right chest wall musculature (image 122, left lumbar L4 with a maximum SUV of 11.3 (image 216), right gluteal musculature with a maximum SUV of 8.8 (image 268), left gluteal musculature with a maximum SUV of 4.6 (image 295, left medial proximal thigh musculature with a maximum SUV of 5.4 (image 295 and left mid thigh muscles with a maximum SUV of 4.1 (image 317). Procedure Note Germaine Rodriguez MD - 11/24/2024 FULL RESULT: Examination: 18F-FDG-PET/CT with contrast, 11/23/2024 10:06 AM Clinical History: Adenocarcinoma within the dermis, initially diagnosedfrom excisional biopsy of right axillary mass presumed to be a sebaceouscyst. 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 Baselinestaging study. Evaluate for the site of primary. Comparison: No prior studies are available for comparison at the time ofthis exam interpretation. Technique: F-18 fluorodeoxyglucose 9.2 mCi was administered intravenouslyvia right antecubital vein. To allow for distribution and uptake ofradiotracer, the patient was asked to rest quietly for approximately 60-90minutes. PET/CT imaging was performed from the vertex to proximal thighs.CT scanning was done for attenuation correction, image registration, anddiagnosis with scan parameters optimized to minimize radiation exposure tothe patient. The CT portion of the examination was performed withintravenous contrast. SUV measurements are reported as maximum SUV basedon body weight unless otherwise specified. Findings: Head and Neck:The brain parenchyma demonstrate symmetric tracer uptake.Mild to moderate mucosal thickening of the bilateral maxillary sinuses isseen. Focal uptake in the right submandibular gland posteriorly the maximum SUVof 10 (image 70) could represent metastatic disease. The thyroid gland is unremarkable. Chest: A few mildly enlarged FDG avid anterior mediastinal diaphragmaticlymph nodes are seen. A marketing sales representative middle diaphragmatic node nowmeasures 1.8 x 1 cm with a maximum SUV of 6.1 (image 139). A rightanterior diaphragmatic node now measures 1.5 x 1.2 cm with a maximum SUVof 5.9 (image 151). Another right anterior diaphragmatic node now measures1.4 x 0.9 cm with a maximum SUV of 6.3. Multiple FDG avid right pleural implants are seen along with small tomoderate right pleural effusion and right pleural nodularity along themajor fissure consistent with pleural metastatic disease. A representativeright pleural implant 1.1 x 0.7 cm and shows a maximum SUV of 4.2 ([id number]). Another right pleural implant shows a maximum SUV of 6.8 (image 130)without any measurable anatomic correlate. Multiple lung nodules are seen measuring up to 1.3 and the majority ofthese nodules show low-grade tracer uptake. A marketing sales representative juxta hilarright upper lobe nodule measures 1.3 x 0.8 cm and shows a maximum SUV of 5(image 120). A lingular nodule measures 1.3 x 1 cm with a maximum SUV of 2(image 127). Multiple other nodules are annotated on series 3. No leftpleural effusion is seen. Abdomen and Pelvis: A partially necrotic mass is seen in the pancreatictail measuring 6.4 x 4 cm and shows a maximum SUV of 7.2 (image 179). Thismass is closely abutting the splenic hilum, images in the left kidneyupper pole and greater curvature of the stomach. The remaining pancreas isunremarkable. The focal uptake from right pleural implants is projecting over the liver.A few small scattered hypodense lesions are seen in the liver (series 3,images 169, 175, 187) along with few sites of focal uptake. A focus ofuptake in the right liver posteriorly shows a maximum SUV of 6 (image 164)and conscious and most likely represents metastasis do not demonstratefrom the adjacent 1.3 x 1.4 cm hypodense lesion (image 171). The remainingsites of focal uptake in the liver do not correspond to the hypodensityseen on the CT portion of the exam. The focal sites of uptake in the liverare suspicious for metastatic disease. A few sites of peritoneal uptake without any discrete anatomic abnormalityare seen in the left upper quadrant along the splenic flexure (image 196),in the sigmoid mesocolon (image 242) and along the rectosigmoid junction(image 251) without any discrete anatomic correlate and is indeterminatebut suspicious for uptake within several peritoneal implants. The gallbladder is well-distended and is unremarkable. The portal veinsand hepatic veins are patent. The spleen, adrenal glands and kidneys areunremarkable. Moderate atherosclerotic calcifications of the abdominal aorta are seen.The inferior vena cava is patent and demonstrates normal course andcaliber. The urinary bladder is grossly unremarkable. Streak artifact fromthe right hip replacement hardware is limiting the evaluation of thebladder. Musculoskeletal: Postsurgical changes of right hip replacement are seenresulting in streak artifact in the adjacent right proximal thigh andpelvic soft tissues. Curvilinear uptake and on the process is is likelysecondary to evolving postsurgical changes. Extensive FDG avid multifocal osseous metastatic disease is seen includingrepresentative metastatic disease at C6 with a maximum SUV of 4.6 (image79), T1 with a maximum SUV of 4.7 (image 87), T5 lamina and spinousprocess with a maximum SUV of 7.7 (image 110), left T8 transverse processand the images and lamina with a maximum SUV of 7.3 (image 133, [id number] body with a maximum SUV of 10.1 (image 148), left T12 pedicleand articular pillar with a maximum SUV of 8.4 (image 168), right [id number] body with a maximum SUV of 10.9 (image 179), left ischium with amaximum SUV of 6.7 (image 279), right proximal humerus with a maximum SUVof 10 (image 107), left proximal humerus with a maximum SUV of 9.7 ([id number]) and left mid femur with a maximum SUV of 11.6 (image 322). In addition, multifocal uptake is seen in the subcutaneous soft tissuesand muscles consistent with additional metastasis. A marketing sales representative focus of uptake within the left paraspinous musculatureat C1 shows a maximum SUV of 8.7 (image 55). Another marketing sales representative focus of uptake is seen within the soft tissuethickening along the medial aspect of the right maxillary sinus with amaximum SUV of 7.9 (image 53) without any erosive changes in the adjacentbone. Additional soft tissue focal uptake is seen in the right axilla ([id number]), right chest wall musculature (image 122, left lumbar L4 with amaximum SUV of 11.3 (image 216), right gluteal musculature with a maximumSUV of 8.8 (image 268), left gluteal musculature with a maximum SUV of 4.6(image 295, left medial proximal thigh musculature with a maximum SUV of5.4 (image 295 and left mid thigh muscles with a maximum SUV of 4.1 ([id number]). IMPRESSION: 1. Small foci of uptake in the liver, multiple lung nodules, FDG avidright pleural implants, small to moderate right pleural effusion,multifocal FDG avid osseous lesions and multifocal FDG avid soft tissuelesions are consistent with extensive metastatic disease. 2. Exact site of the primary tumor remains unknown. The dominant thenecrotic mass in the pancreas could represent the primary tumor ormetastatic disease from unknown primary. The distribution of metastaticdisease described above is very atypical for pancreatic primary tumor andmore typical for lung malignancy although no definite discrete large lungmass suggestive of primary tumor is seen. Another differentialconsideration includes metastatic disease from an occult lung primary.Recommend clinical correlation. ACTIONABLE ITEMS/RECOMMENDATIONS*: See impression. *An Actionable Finding is a finding that may be unrelated to the originalreason for imaging but potentially actionable, meaning furtherinvestigation may be necessary. The Actionable Findings Vigilance Unit(AFVU) assists medical providers with responding to additional radiologicfindings that are unexpected and potentially actionable. [facility] Final Result * Glucose, Random (11/22/2024 12:48 PM CDT) [facility] Glucose Random 109 70 - 199 mg/dL 11/22/2024 1:55 PM CDT [facility] Blood Peripheral blood specimen / Unknown Venipuncture / Unknown 11/22/2024 12:48 PM CDT 11/22/2024 12:51 PM CDT Narrative [facility] - 11/22/2024 1:55 PM CDT Effective 04/09/16, the glucose reference intervals have been updated based on [place] [employer] guidelines (Standards of Medical Care in Diabetes 2016. Diabetes Care 2016; 39: S13-S22). Fasting blood glucose: Normal: 70-99 mg/dL Impaired fasting glucose (increased risk for diabetes or pre-diabetes): 100-125 mg/dL Diabetes mellitus: >/=126 mg/dL Random blood glucose: Normal: 70-199 mg/dL Note: Random glucose >100 mg/dL is associated with increased risk for diabetes [facility] Jocelin [facility] LAB BLOOD ORDERABLES Final Result [facility] Unless otherwise noted, all lab tests performed by: Division of Pathology and Laboratory Medicine [address] [place] [address] [place] [id number] * Hepatitis C Virus Antibody (11/22/2024 12:48 PM CDT) [facility] HCVAb. Non Reactive Non Reactive 11/22/2024 2:35 PM CDT [facility] Blood Peripheral blood specimen / Unknown Venipuncture / Unknown 11/22/2024 12:48 PM CDT 11/22/2024 12:51 PM CDT Narrative [facility] - 11/22/2024 2:35 PM CDT Antibody detection in the immunocompromised and immunosuppressed population may be delayed or absent entirely. Therefore serial testing, correlation with other clinical findings, and supplemental testing (if available) should be taken into consideration when interpreting the results. Carlos Enriqueclary MartelJocelinowen XIE LAB BLOOD ORDERABLES Final Result [facility] Unless otherwise noted, all lab tests performed by: Division of Pathology and Laboratory Medicine [facility] [place] [address] * (ABNORMAL) Hepatic Function Panel (11/22/2024 12:48 PM CDT) Pathologist [facility] Bilirubin Total 0.3 0.0 - 1.2 mg/dL 11/22/2024 1:55 PM CDT [facility] Comment:Indocyanine Green (I CG) may cause falsely elevated bilirubin results. Total and direct bilirubin must not be measured from samples containing indocyanine green. False elevation of total bilirubin can be seen in patients with IgG concentrations above 28 g/L. Bilirubin Direct 0.1 0.0 - 0.2 mg/dL 11/22/2024 1:55 PM CDT [facility] Comment:Indocyanine Green (I CG) may cause falsely elevated bilirubin results. Total and direct bilirubin must not be measured from samples containing indocyanine green. Bilirubin Indirect 0.2 0.0 - 1.0 mg/dL 11/22/2024 1:55 PM CDT [facility] Tot Protein 8.7(H) 6.4 - 8.3 gm/dL 11/22/2024 1:55 PM CDT [facility] Alkaline Phosphatase 220(H) 40 - 129 U/L 11/22/2024 1:55 PM CDT [facility] Albumin Level 4.6 3.5 - 5.2 gm/dL 11/22/2024 1:55 PM CDT [facility] AST 18 <=40 U/L 11/22/2024 1:55 PM CDT [facility] ALT 14 <=41 U/L 11/22/2024 1:55 PM CDT [facility] Blood Peripheral blood specimen / Unknown Venipuncture / Unknown 11/22/2024 12:48 PM CDT 11/22/2024 12:51 PM CDT Mila Monreal APRN LAB BLOOD ORDERABLES Final Result Performing Organization Address City/[facility]/ZIP Co de Phone Number [facility] Unless otherwise noted, all lab tests performed by: Division of Pathology and Laboratory Medicine [address] [place] [id number] * AFP (11/22/2024 12:48 PM CDT) Pathologist [facility] Alpha Fetoprotein (AFP) Tumor Marker 3.4 <=8.3 ng/mL 11/22/2024 2:07 PM CDT [facility] Blood Peripheral blood specimen / Unknown Venipuncture / Unknown 11/22/2024 12:48 PM CDT 11/22/2024 12:51 PM CDT Narrative [facility] - 11/22/2024 2:07 PM CDT Results greater than 45,875.00 ng/mL may not be reliable due to matrix effect with extended dilution as it exceeds the dredge hand's recommended limit. Caution should be exercised when interpreting such values and done in conjunction with clinical context. This test is measured by electrochemiluminescence immunoassay on [employer] immunoassay analyzers. Results obtained in different methods are not interchangeable. Mila Monreal APRN LAB BLOOD ORDERABLES Final Result [facility] Unless otherwise noted, all lab tests performed by: Division of Pathology and Laboratory Medicine [address] [place] [id number] * BUN (11/22/2024 12:48 PM CDT) [facility] BUN 21 6 - 23 mg/dL 11/22/2024 1:55 PM CDT [facility] Blood Peripheral blood specimen / Unknown Venipuncture / Unknown 11/22/2024 12:48 PM CDT 11/22/2024 12:51 PM CDT Carlos Enriquesanta fe Jocelin DIRECTOR SPEECH AND HEARING LAB BLOOD ORDERABLES Final Result Performing Organization Address City/[facility] Co de Phone Number [facility] Unless otherwise noted, all lab tests performed by: Division of Pathology and Laboratory Medicine [address] [place] [id number] * Prostate Specific Antigen (PSA) Screening (11/22/2024 12:48 PM CDT) Prostate Specific Antigen 1.8 <=4.0 ng/mL 11/22/2024 1:47 PM CDT [facility] PSA Indication Screening 11/22/2024 1:47 PM CDT [facility] Blood Peripheral blood specimen / Unknown Venipuncture / Unknown 11/22/2024 12:48 PM CDT 11/22/2024 12:51 PM CDT Narrative [facility] - 11/22/2024 1:47 PM CDT The assay is intended for use in males aged 50 years or older. Reference ranges have not been validated for patients outside those age ranges; therefore, the results should be interpreted in the context of the patient's clinical condition. Results greater than 4519 ng/mL may not be reliable due to matrix effect with extended dilution as it exceeds the dredge hand's recommended limit. Caution should be exercised when interpreting such values and done in conjunction with clinical context. This test is measured by electrochemiluminescence immunoassay on Ash Sharon immunoassay analyzers. Results obtained in different methods are not interchangeable. Mila Monreal DIRECTOR SPEECH AND HEARING LAB BLOOD ORDERABLES Final Result [facility] Unless otherwise noted, all lab tests performed by: Division of Pathology and Laboratory Medicine [address] [place] [id number] [facility] Unless otherwise noted, all lab tests performed by: Division of Pathology and Laboratory Medicine [address] [place] [phone] * (ABNORMAL) Hemoglobin A1c (11/22/2024 12:48 PM CDT) Hemoglobin A1c 6.8(H) 4.3 - 5.6 % 11/22/2024 1:20 PM CDT [facility] Blood Peripheral blood specimen / Unknown Venipuncture / Unknown 11/22/2024 12:48 PM CDT 11/22/2024 12:51 PM CDT Narrative [facility] - 11/22/2024 1:20 PM CDT HbA1c values >=6.5% are diagnostic of diabetes mellitus. Diagnosis should be confirmed by repeat testing. Therapeutic Action suggested: >8.0% HbA1c; Goal of therapy: <7.0% HbA1c us Mila Monreal APRN LAB BLOOD ORDERABLES Final Result [facility] Unless otherwise noted, all lab tests performed by: Division of Pathology and Laboratory Medicine [address] [place] [phone] * Creatinine (11/22/2024 12:48 PM CDT) Creatinine 0.87 0.67 - 1.17 mg/dL 11/22/2024 1:55 PM CDT [facility] eGFR 91 >=60 mL/min/1.7 3 sq. m 11/22/2024 1:55 PM CDT [facility] Comment: The eGFRcr is calculated with the 2020 CKD-EPI creatinine equation using creatinine, patient's age, and sex for adults 18 years of age and older. Other factors, especially muscle mass, may affect accuracy and need to be considered. According to the Kidney Disease: Improving Global Outcomes (KDIGO) CKD Work Group 2012 Clinical Practice Guideline, chronic kidney disease (CKD) is defined as the abnormalities of kidney structure or function, present for more than 3 months, with implications for health. CKD should be classified by cause, GFR category, and albuminuria category. KDIGO guidelines provide the following GFR categories. Stage / Description / GFR mL/min/1.73 m2: G1* / Normal or high / >= 90 G2* / Mildly decreased / 60-89 G3a / Mildly to moderately decreased / 45-59 G3b / Moderately to severely decreased / 30-44 G4 / Severely decreased / 15-29 G5 / Kidney failure / <15 *In the absence of evidence of kidney damage, neither G1 nor G2 fulfill criteria for CKD. Blood Peripheral blood specimen / Unknown Venipuncture / Unknown 11/22/2024 12:48 PM CDT 11/22/2024 12:51 PM CDT Carlos Enriquesanta fe Jocelin DIRECTOR SPEECH AND HEARING LAB BLOOD ORDERABLES Final Result [facility] Unless otherwise noted, all lab tests performed by: Division of Pathology and Laboratory Medicine [address] [place] [id number] * Calcium Level (11/22/2024 12:48 PM CDT) Pathologist [facility] Calcium Level Total 10.0 8.2 - 10.2 mg/dL 11/22/2024 1:55 PM CDT [facility] Blood Peripheral blood specimen / Unknown Venipuncture / Unknown 11/22/2024 12:48 PM CDT 11/22/2024 12:51 PM CDT Mila Martelevert DIRECTOR SPEECH AND HEARING LAB BLOOD ORDERABLES Final Result [facility] Unless otherwise noted, all lab tests performed by: Division of Pathology and Laboratory Medicine [address] [place] [id number] * (ABNORMAL) Electrolyte Panel (11/22/2024 12:48 PM CDT) Sodium Level 137 136 - 145 mmol/L 11/22/2024 1:55 PM CDT [facility] Potassium Level 3.9 3.4 - 4.5 mmol/L 11/22/2024 1:55 PM CDT [facility] Chloride 95(L) 98 - 107 mmol/L 11/22/2024 1:55 PM CDT [facility] CO2 32(H) 22 - 29 mmol/L 11/22/2024 1:55 PM CDT [facility] Anion Gap 10 4 - 14 mmol/L 11/22/2024 1:55 PM CDT [facility] Blood Peripheral blood specimen / Unknown Venipuncture / Unknown 11/22/2024 12:48 PM CDT 11/22/2024 12:51 PM CDT Latira Jocelin DIRECTOR SPEECH AND HEARING LAB BLOOD ORDERABLES Final Result [facility] Unless otherwise noted, all lab tests performed by: Division of Pathology and Laboratory Medicine [address] [place] [id number] * EKG, 12-Lead (Scheduled) (11/22/2024) Latira Jocelin DIRECTOR SPEECH AND HEARING ECG ORDERABLES Final Resu lt Performing Organization Address City/[facility]/ZIP Co de Phone Number [facility] * Pathology Outside Interpretation (10/28/2024) Materials Received Accession#, Stained, Block, Unstained Collected Received A. 25:IS249, 21 SS, 6 BLOCKS, 0 USS 10/28/2024 11/24/2024 11/25/2024 6:10 PM CDT [facility] Diagnosis Outside material (25:IS249, 21 SS, 6 BLOCKS, 0 USS, collected on 10/28/2024): Skin, right axilla, ellipse (6xH&E: A1-A6; 15xIHC: CK7, CK20, CDX2, TTF1, NapsinA, GATA3, ER, VLD4ttk, PAX8, NKX3.1, SATB2, SOX10, p63, calretinin, D2-40): SKIN AND SUBCUTIS WITH ADENOCARCINOMA INVOLVING DERMIS AND SUBCUTIS Tumor size: 16 x 12 mm, at least. LYMPHOVASCULAR INVASION: PRESENT CARCINOMA IS PRESENT AT PERIPHERAL MARGINS OF RESECTION See comment. 11/25/2024 6:10 PM CDT [facility] Comment The submitted sections reveal an epithelial malignant neoplasm with glandular differentiation occupying superficial and deep dermis and subcutis. There is focal involvement of epidermis and follicular epithelium. There is central necrosis within the malignant glandular lumina. Lymphovascular invasion is present. The provided immunohistochemical studies, reviewed here, reveal the lesional cells to be positive for CK7 and SATB2 (patchy), while being essentially negative for CK20, CDX2, TTF1, NapsinA, GATA3, ER, BUH9dka, PAX8, NKX3.1, SOX10, p63, calretinin, and D2-40. D2-40 highlights lymphovascular invasion. Overall, the findings are suggestive of metastatic adenocarcinoma. Gastrointestinal tract, lung, breast are should be considered, among others, for potential origin of the tumor. However, primary cutaneous adnexal carcinoma is not completely ruled out. Correlation with molecular, clinica,l and imaging findings is recommended for definitive diagnosis. Review of the referring provider s clinical documentation were incorporated into the process for arriving at a diagnosis. This case was studied and discussed at the dermatopathology faculty conference. 11/25/2024 6:10 PM CDT [facility] Junk Dealer(s ) TONA ESQUIVEL 11/25/2024 6:10 PM CDT [facility] Biomarker Block(s) Normal: N/A Tumor: 25:IS249 A3 Adequacy: Adequate for immunohistochemical and molecular studies 11/25/2024 6:10 PM CDT [facility] Disclaimer "Some tests reported here may have been developed and performance characteristics determined by [facility] Pathology and Laboratory Medicine. These tests have not been specifically cleared or approved by the U.S. Food and Drug Administration. If applicable, controls were reviewed and showed appropriate reactivity." 11/25/2024 6:10 PM CDT [facility] Tissue 10/28/2024 11/24/2024 8:0 6 AM CDT us Marion Kat MD LAB PATHOLOGY ORDERABLES Final Result [facility] [address] [place] [address], [place] after 01/09/2024 Insurance [employer] MEDICARE PPO [employer] MEDICARE PPO Advance Directives Documents on File Type Date Recorded Patient Automotive Sales Specialist Expl anation Advance Directives: Living Will 12/21/2024 Directive to Physici ans and Family or Surrogates-Living Will Advance Directives: Medical Power of Contracts Administrator 12/21/2024 Medical Power of Att orney * DNR (Latest Code Status on File) Date Activated Date Inactivated Comments 12/23/2024 1:15 PM 12/30/2024 5:01 PM Question Answer Comments DNR obtained from: Patient Advance Directive * Full Code Date Activated Date Inactivated Comments 12/21/2024 11:18 PM 12/23/2024 1:15 PM * Full Code Date Activated Date Inactivated Comments 12/15/2024 10:37 AM 12/20/2024 7:42 PM Care Teams Screen Operator Relationship Specialty Start Date End Date Farhan Bond MD [address] [place] [phone] [email or web address] PCP - External Primary Care Provider Internal Medicine 11/16/24 Mila Monreal APRN [address] [place] [phone] [email or web address] - General Internal Medicine 11/16/24 12/19/24 Catracho Oseguera MD PhD [address] [place] [id number] [email or web address] centerNextreme Thermal Solutionswell[facility]. [facility] PCP - General Gastrointestinal Medical Oncology 12/20/24 Gómez Ortiz PA [address] [place] [phone] [email or web address] centerNextreme Thermal Solutionswell[facility] .[facility] Physician Soap Grinder Radiology 12/01/24 Figueroa Humphreys MD [address] [place] [id number] [email or web address] Consulting Physician Pain Management 12/07/24 Catracho Oseguera MD PhD [address] [place] [phone] [email or web address] centerNextreme Thermal Solutionswell[facility] Consulting Physician Gastrointestinal Medical Oncology 12/14/24 Maru Medina, RN [address] [place] [address] [email or web address] Hand Nursing 12/16/24 Catarino Vang MD [address] [place] [id number] [email or web address] centerNextreme Thermal Solutionswell[facility] .[facility] Consulting Physician Neuro-Oncology 12/27/24
[2025-01-08] MEDS ORDERED: NA CHLORIDE 0.9% 1,000 ML ONE (07:34)
[2025-01-08] MEDS ORDERED: LORazepam 2 MG/ML VIAL ONE (07:34)
[2025-01-08 07:54] LABS: Absolute Lymphocytes (CBC) 0.9 K/uL (0.7-4.9); Absolute Monocytes 1.3 K/uL (0.1-1.3); Absolute Neutrophil 11.1 K/uL (1.8-8.0); Basophils % 0.3 % (0-1.3); Eosinophils % 0.2 % (0-4.4); Hematocrit 31.1 % (39.6-49.0); Hemoglobin 10.6 g/dL (13.6-17.9); Lymphocytes % 6.4 % (15.3-44.8); MCH 30.8 pg (27.0-35.0); MCHC 34.1 g/dL (32.0-36.0); MCV 90.2 fL (80-100); MPV 7.6 fL (7.6-11.3); Monocytes % 9.7 % (3.3-12.3); Neutrophils % 83.4 % (41.7-73.7); Platelets 676 thou/uL (152-406); RBC Red Blood Cell Count 3.45 M/uL (4.33-5.43); Red Cell Distribution Width 14.7 % (12.1-15.2)
--- NOTE | 2025-01-08 08:14 | ER ---
Nurse's Notes [facility] Name: Joaquin Valera Age: 74 yrs Sex: Male : 1950 Arrival Date: 01/08/2025 Time: 06:58 Bed 2 Private MD: Diagnosis: Dyspnea, unspecified;Hypoxemia;Disorders of gallbladder, biliary tract and pancreas in diseases classified elsewhere-widely metastatic cancer, liver , pulmonary;Do not resuscitate Presentation: 01/08 07:12 Chief complaint: EMS states: EMS called for respiratory distress, pt on hospice for ph extensive cancer, reports that his Spo2 was 88% last night and that pt was extremely restless, pt found by SO on the floor in living room this morning, was very anxious when EMS arrived, pt given 5 mg Versed and 100 mcg of fentanyl, ,normally A\\T\\O x 4, SPo2 96% on NRB. Coronavirus screen: Vaccine status: Patient reports being unvaccinated. Ebola Screen: No symptoms or risks identified at this time. Initial Sepsis Screen: Does the patient meet any 2 criteria? No. Patient's initial sepsis screen is negative. Does the patient have a suspected source of infection? No. Patient's initial sepsis screen is negative. Risk Assessment: Do you want to hurt yourself or someone else? Patient reports no desire to harm self or others. Onset of symptoms was January 08, 2025. 07:12 Method Of Arrival: EMS: [facility] 07:12 Acuity: RUTH 2 ph Triage Assessment: 07:24 General: Appears distressed, uncomfortable, well groomed, Behavior is cooperative, ph drowsy, restless. Pain: Complains of pain in "all over". Neuro: Huynh Agitation-Sedation Scale (RASS): -2 Light sedation Level of Consciousness is awake, obeys commands, lethargic, Oriented to person, place, situation. Cardiovascular: Capillary refill is sluggish Patient's skin is warm and dry. Edema is 2+ to left ankle, left foot, right ankle and right foot Rhythm is sinus tachycardia. Respiratory: Breath sounds are diminished bilaterally. Onset: The symptoms/episode began/occurred gradually, the patient has severe shortness of breath. Respiratory: Reports shortness of breath at rest Airway is patent Respiratory effort is labored, with retractions, Respiratory pattern is tachypnea. GI: Abdomen is distended. : No signs and/or symptoms were reported regarding the genitourinary system. Derm: Skin is normal. Musculoskeletal: Circulation, motion, and sensation intact. Range of motion: intact in all extremities. Historical: - Allergies: 07:23 No Known Allergies; ph - PMHx: 07:24 pancreatic cancer w/ extensive metastisis; hospice; ph - Immunization history:: Adult Immunizations unknown. - Infectious Disease History:: Denies. - Family history:: not pertinent. - Social history:: Smoking status: unknown. Screenin:29 [facility] ED Fall Risk Assessment (Adult) History of falling in the last 3 months, ph including since admission Yes- single mechanical fall (1 pt) Confusion or Disorientation No (0 pts) Intoxicated or Sedated Yes (3 pts) Impaired Gait Yes (1 pt) Mobility Assist Device Used Yes (1 pt) Altered Elimination No (0 pt) Score/Fall Risk Level 3 or more points = High Risk Oriented to surroundings, Maintained a safe environment, Assessed \\T\\ reinforced patient's understanding of fall precautions, Hourly rounding (assess needs \\T\\ fall precautionary measures) done, Used ambulatory aids as needed (educated on \\T\\ assisted with), Utilized family, sitter, or virtual guard chief as indicated. Abuse screen: Denies threats or abuse. Denies injuries from another. Nutritional screening: No deficits noted. Tuberculosis screening: No symptoms or risk factors identified. Assessment: 08:08 Reassessment: Cleansed patient of bowel incontinence. Assisted patient onto bedpan, ss void x 1, BM x1. Stool soft. and brother now back at bedside. Pt respositioned with pillow for comfort. 08:10 General: SEE TRIAGE ASSESSMENT. ph 08:45 Reassessment: pt appears more comfortable, no longer restless and resting quietly, ph respirations remain rapid and labored, family at bedside, pt to be admitted for in hospital hospice care. 11:50 Reassessment: asystole on bedside monitor, Bronwyn DE LA GARZA and myself at bedside to confirm ph that pt has passed, no pulses palpated, no heart sounds auscultated. TOD 1150, family remains at bedside, charge nurse to contact [facility]. 13:20 Reassessment: Undertaker from [facility] at bedside to transport pt. ph Vital Signs: 07:12 BP 163 / 83; Pulse 104; Resp 28; Temp 97.8; Pulse Ox 96% on 15 lpm Non-rebreather mask; ph Weight 94.35 kg; Height 5 ft. 10 in. ; 08:09 BP 189 / 83; Pulse 110; Resp 28; Pulse Ox 95% on Non-rebreather mask; ph 08:44 BP 149 / 64; Pulse 103; Resp 26; Pulse Ox 92% on Non-rebreather mask; ph 11:15 BP 132 / 49; Pulse 83; Resp 18; Pulse Ox 74% on 15 lpm Non-rebreather mask; ph 11:34 BP 99 / 44; Pulse 64; Resp 14; Pulse Ox 71% on 15 lpm Non-rebreather mask; ph 07:12 Body Mass Index 29.84 (94.35 kg, 177.8 cm) ph Vitals: 08:09 Cardiac Rhythm Assessment Sinus tach. ph ED Course: 07:11 Patient arrived in ED. ph 07:14 Paul Howe MD is Attending Physician. yaneth 07:17 Triage completed. ph 07:29 Arm band placed on Patient placed in an exam room, on a stretcher, on oxygen, on ph cardiac cath rn, on pulse oximetry. 07:30 Patient has correct armband on for positive identification. Bed in low position. Call ph light in reach. Side rails up X2. Client placed on continuous cardiac and pulse oximetry monitoring. NIBP monitoring applied. alarm security or surveillance monitor on. Pulse ox on. Door closed. Noise minimized. Warm blanket given. Verbal reassurance given. Head of bed elevated. 07:37 Comprehensive Metabolic Panel Sent. ss 07:37 CBC with Diff Sent. ss 07:37 Inserted saline lock: 22 gauge in left hand, using aseptic technique. Blood collected. ss Flushed with 10 mL NS. 07:40 Maintain EMS IV. Dressing intact. Good blood return noted. Gauge \\T\\ site: 22 R wrist. ph Flushed with 10 mL NS. 08:06 Chest Single View XRAY In Process Unspecified. EDMS 08:09 Karley Mendez, HOLLI is Primary Nurse. ph 08:11 Willi Walton MD is Hospitalizing Provider. yaneth 08:45 Farhan Bond MD is Hospitalizing Provider. yaneth 08:48 No provider procedures requiring assistance completed. Patient admitted, IV remains in ph place. 12:[address] [facility]. eb Administered Medications: 08:10 Drug: NS 0.9% IV 500 ml 500 ml IV at 1 bolus once; to be given as a bolus over 30 ph minutes Volume: 500 ml; Route: IV; Rate: 1 bolus; Site: right wrist; 08:39 Follow up: Response: No adverse reaction; IV Status: Completed infusion; IV Intake: ph 500ml 08:11 Drug: Ativan IVP 1 mg IVP once Route: IVP; Site: right wrist; ph 08:39 Follow up: Response: No adverse reaction; Anxiety decreased ph 08:40 Drug: NS 0.9% IV 1000 ml IV at 125 ml/hr once; to be given as a bolus over 60 minutes ph Route: IV; Rate: 125 ml/hr; Site: right wrist; 13:22 Follow up: Response: No adverse reaction; IV Status: Order to discontinue infusion ph 10:29 Drug: Ativan IVP 1 mg IVP once Route: IVP; Site: right wrist; aa5 10:45 Follow up: Response: No adverse reaction ph Medication: 07:29 VIS not applicable for this client. ph Intake: 08:39 IV: 500ml; Total: 500ml. ph Outcome: 08:14 Decision to Hospitalize by Provider. yaneth 13:21 Patient : Time of 11:50 Body to home, Private MD notified ph 13:21 Condition: 13:24 Patient left the ED. ph Signatures: Dispatcher [employer] Paul Kerr MD MD cha Calderon, Audri RN RN aa5 Bronwyn Woods RN RN ss Hall, Patricia, RN RN July Sol Corrections: (The following items were deleted from the chart) 10: 10:29 Ativan IVP 1 mg IVP in right antecubital aa5 aa5
--- NOTE | 2025-01-08 08:14 | EDPHYS ---
Physician Documentation [facility] Name: Joaquin Valera Age: 74 yrs Sex: Male : 1950 Arrival Date: 01/08/2025 Time: 06:58 Bed 2 Private MD: [facility] Physician Paul Howe HPI: 01/08 07:23 This 74 yrs old Male presents to ER via EMS with complaints of Breathing yaneth Difficulty. 07:23 The patient has shortness of breath at rest. Onset: The symptoms/episode began/occurred yaneth 2 day(s) ago. Duration: The symptoms are continuous, and are steadily getting worse. The patient's shortness of breath is aggravated by supine position, talking. Associated signs and symptoms: Pertinent positives: non-productive cough. The patient has experienced similar episodes in the past, several times. Historical: - Allergies: 07:23 No Known Allergies; ph - PMHx: 07:24 pancreatic cancer w/ extensive metastisis; hospice; ph - Immunization history:: Adult Immunizations unknown. - Infectious Disease History:: Denies. - Family history:: not pertinent. - Social history:: Smoking status: unknown. ROS: 07:24 Constitutional: Negative for fever, chills, and weight loss, Eyes: Negative for injury, yaneth pain, redness, and discharge, ENT: Negative for injury, pain, and discharge, Neck: Negative for injury, pain, and swelling, Abdomen/GI: Negative for abdominal pain, nausea, vomiting, diarrhea, and constipation, Back: Negative for injury and pain, : Negative for injury, bleeding, discharge, and swelling, MS/Extremity: Negative for injury and deformity, Psych: Negative for depression, anxiety, suicide ideation, homicidal ideation, and hallucinations, Allergy/Immunology: Negative for hives, rash, and allergies, Endocrine: Negative for neck swelling, polydipsia, polyuria, polyphagia, and marked weight changes, Hematologic/Lymphatic: Negative for swollen nodes, abnormal bleeding, and unusual bruising, 07:24 Cardiovascular: Positive for palp, 07:24 Respiratory: Positive for shortness of breath, at rest. Exam: 07:26 Constitutional: This is a well developed, well nourished patient who is awake, alert, yaneth and in no acute distress. Head/Face: Normocephalic, atraumatic. Eyes: Pupils equal round and reactive to light, extra-ocular motions intact. Lids and lashes normal. Conjunctiva and sclera are non-icteric and not injected. Cornea within normal limits. Periorbital areas with no swelling, redness, or edema. ENT: Nares patent. No nasal discharge, no septal abnormalities noted. Tympanic membranes are normal and external auditory canals are clear. Oropharynx with no redness, swelling, or masses, exudates, or evidence of obstruction, uvula midline. Mucous membranes moist. Neck: Trachea midline, no thyromegaly or masses palpated, and no cervical lymphadenopathy. Supple, full range of motion without nuchal rigidity, or vertebral point tenderness. No Meningismus. Chest/axilla: Normal chest wall appearance and motion. Nontender with no deformity. No lesions are appreciated. Abdomen/GI: Soft, non-tender, with normal bowel sounds. No distension or tympany. No guarding or rebound. No evidence of tenderness throughout. Back: No spinal tenderness. No costovertebral tenderness. Full range of motion. Male : Normal genitalia with no discharge or lesions. Skin: Warm, dry with normal turgor. Normal color with no rashes, no lesions, and no evidence of cellulitis. MS/ Extremity: Pulses equal, no cyanosis. Neurovascular intact. Full, normal range of motion., bilateral aka Psych: Awake, alert, with orientation to person, place and time. Behavior, mood, and affect are within normal limits. 07:26 Cardiovascular: Rate: tachycardic, actual rate is 104 bpm, Rhythm: regular, Pulses: Pulses are 4+ in bilateral radial, brachial, femoral, popliteal, posterior tibial and and dorsalis pedis arteries.. Heart sounds: normal, Edema: 3+ edema to level of left midcalf and right midcalf, JVD: is not appreciated, 07:26 Musculoskeletal/extremity: ROM: limited active range of motion, limited passive range of motion, Circulation is intact in all extremities. Sensation intact. Compartment Syndrome exam of affected extremity: is normal. Joints: All joints appear normal with full range of motion. Weight bearing: is unable to bear weight, DVT Exam: no erythema, no increased warmth, swelling, 08:14 ECG was reviewed by the Attending Physician. [facility] Vital Signs: 07:12 BP 163 / 83; Pulse 104; Resp 28; Temp 97.8; Pulse Ox 96% on 15 lpm Non-rebreather mask; ph Weight 94.35 kg; Height 5 ft. 10 in. ; 08:09 BP 189 / 83; Pulse 110; Resp 28; Pulse Ox 95% on Non-rebreather mask; ph 08:44 BP 149 / 64; Pulse 103; Resp 26; Pulse Ox 92% on Non-rebreather mask; ph 11:15 BP 132 / 49; Pulse 83; Resp 18; Pulse Ox 74% on 15 lpm Non-rebreather mask; ph 11:34 BP 99 / 44; Pulse 64; Resp 14; Pulse Ox 71% on 15 lpm Non-rebreather mask; ph 07:12 Body Mass Index 29.84 (94.35 kg, 177.8 cm) ph MDM: 07:14 Medical Screening Exam initiated [facility] 07:28 Differential diagnosis: Anemia Anxiety Reaction asthma, Bronchitis CHF exacerbation, yaneth Chronic Obstructive Pulmonary Disease Myocardial Infarction pulmonary edema, Pulmonary Embolism reactive airway disease, Sepsis Unstable Angina. Antibiotic administration: Not indicated. Differential Diagnosis altered mental status, sepsis, flu. Immunization status: Pneumococcal vaccine: within last 5 years. Influenza vaccine: within last 5 years. Data reviewed: vital signs, nurses notes, EMS record, lab test result(s), radiologic studies, plain films. Consideration of Admission/Observation Escalation of care including admission/observation considered. I considered the following discharge prescriptions or medication management in the emergency department Medications were administered in the Emergency Department. See MAR. Test considered but Not performed: CT: no ct chest. 01/08 07:22 Order name: CBC with Diff; Complete Time: 08:07 [facility] 01/08 07:22 Order name: Comprehensive Metabolic Panel [facility] 01/08 09:07 Order name: Basic Metabolic Panel [facility] 01/08 09:07 Order name: Basic Metabolic Panel [facility] 01/08 09:07 Order name: CBC with Automated Diff [facility] 01/08 09:07 Order name: CBC with Automated Diff [facility] 01/08 07:22 Order name: Chest Single View XRAY [facility] 01/08 08:57 Order name: Social Service Consult [facility] 01/08 07:22 Order name: Oxygen; Complete Time: 07:30 [facility] EC:14 Rate is 116 beats/min. Rhythm is regular. QRS [place] is Normal. LA interval is normal. [facility] QRS interval is normal. QT interval is normal. No Q waves. T waves are Normal. No ST changes noted. Clinical impression: Sinus tachycardia and No evidence of ischemia. Interpreted by me. Reviewed by me. Administered Medications: 08:10 Drug: NS 0.9% IV 500 ml 500 ml IV at 1 bolus once; to be given as a bolus over 30 ph minutes Volume: 500 ml; Route: IV; Rate: 1 bolus; Site: right wrist; 08:39 Follow up: Response: No adverse reaction; IV Status: Completed infusion; IV Intake: ph 500ml 08:11 Drug: Ativan IVP 1 mg IVP once Route: IVP; Site: right wrist; ph 08:39 Follow up: Response: No adverse reaction; Anxiety decreased ph 08:40 Drug: NS 0.9% IV 1000 ml IV at 125 ml/hr once; to be given as a bolus over 60 minutes ph Route: IV; Rate: 125 ml/hr; Site: right wrist; 13:22 Follow up: Response: No adverse reaction; IV Status: Order to discontinue infusion ph 10:29 Drug: Ativan IVP 1 mg IVP once Route: IVP; Site: right wrist; aa5 10:45 Follow up: Response: No adverse reaction ph Disposition Summary: 01/08/25 08:14 Hospitalization Ordered Notes: Hospitalization Status: Inpatient Admission yaneth Condition: Critical yaneth Problem: an ongoing problem yaneth Symptoms: have worsened yaneth Bed/Room Type: Standard yaneth Provider: Farhan Bond(01/08/25 08:45) yaneth Location: [facility] ER HOLD(01/08/25 10:59) Room Assignment: ERHOLD-(01/08/25 10:59) Diagnosis - Dyspnea, unspecified yaneth - Hypoxemia yaneth - Disorders of gallbladder, biliary tract and pancreas in diseases classified yaneth elsewhere - widely metastatic cancer, liver , pulmonary - Do not resuscitate yaneth Forms: - Medication Reconciliation Form yaneth - SBAR form yaneth - Leadership Thank You Letter yaneth Signatures: Dispatcher [employer] Paul Kerr MD MD cha Calderon, Audri, RN RN aa5 Bronwyn Woods RN RN ss Karley Mendez RN RN ph Corrections: (The following items were deleted from the chart) 08:45 08:14 Willi Walton cha [facility] 10:59 08:14 Telemetry/MedSurg (Inpatient) [facility] 10:59 08:14 yaneth ss
[2025-01-08 08:22] LABS: Albumin 2.5 g/dL (3.4-5.0); Albumin/Globulin Ratio 0.6 (1.1-1.8); Anion Gap 5.9 mEq/L (5.0-15.0); Bilirubin Total 0.3 mg/dL (0.2-1.0); Globulin 4.4 g/dL (2.3-3.5); Potassium 3.9 mEq/L (3.5-5.1); Protein, Total 6.9 g/dL (6.4-8.2)
--- NOTE | 2025-01-08 08:29 | RAD REPORT ---
EXAMINATION: ONE VIEW CHEST XR CLINICAL INDICATION: DYSPNEA TECHNIQUE: Frontal chest projection is submitted. Examination is limited by patient positioning and t echnique. COMPARISON: 10/26/2024 FINDINGS: Moderate to significant bilateral pulmonary opacities may represent pulmonary edema or pneumonia. Hea rt is moderately enlarged. No displaced fractures identified. Numerous tubes overlying the right chest, presumably external to the patient difficult to fully assess.
[2025-01-08] MEDS ORDERED: MORPHINE 4 MG/ML SYR IV PRN (09:04)
[2025-01-08] MEDS ORDERED: ONDANSETRON 4 MG/2 ML VIAL IV PRN (09:04)
[2025-01-08] MEDS ORDERED: ACETAMINOPHEN 325 MG TABLET PO PRN (09:49)
[2025-01-08] MEDS ORDERED: D5 0.45 NS 1,000 ML IV SCH (10:00)
--- NOTE | 2025-01-09 13:08 | P.SSS ---
Patient History Date of Service: 01/09/25 Reason for admission: HOSPICE FOR ADVANCED PANCREATIC CANCER History of Present Illness: FEW WEEKS AGO MR. BUNN HAD A SKIN MASS TAKEN OUT AND IT TURNED OUT TO BE ADENOCARCINOMA. HE HAD NO SYMPTOMS BEFORE THIS. I ASKED HIM TO GET TO [facility] BY DIRECT COMMUNICATION AND [facility] FOUND THAT HE HAD ADVANCED PANCREATIC CANCER WITH METS TO LIVER, MUSCLE, BONES AND LUNGS. THEY COULD NOT DO ANYTHING FOR HIM. HE RAPIDLY DECLINED. HE WAS ON HOSPICE AT HOME. HE FELL AT HOME. COULD NOT HANDLE IT ANY LONGER. SHE CALLED EMT. DR. BRYAN CALLED ME TO ADMIT HIM FOR HOSPICE. HOSPICE EMILY WENT TO ER, ADMITTED HIM. HE CONTINUED TO DECLINE RAPIDLY AND EXPECTED BEFORE I COULD COME TO VISIT HIM. Allergies No Known Allergies Allergy (Verified 10/26/24 14:22) Home Medications: Atorvastatin Calcium [Lipitor] 20 mg PO DAILY 10/26/24 Chlorthalidone [Hygroton 25mg Tab] 25 mg PO DAILY 10/26/24 Dutasteride [Avodart] 0.5 mg PO DAILY 10/26/24 Eplerenone 50 mg PO DAILY 10/26/24 Ezetimibe [Zetia] 10 mg PO DAILY 10/26/24 Hydralazine HCl 100 mg PO TID 10/26/24 Metformin HCl [Metformin HCl ER] 500 mg PO DAILY 10/26/24 NIFEdipine [Nifedipine ER] 60 mg PO DAILY 10/26/24 Tamsulosin HCl 0.4 mg PO DAILY 10/26/24 Ubidecarenone [Co Q-10] 200 mg PO DAILY 10/26/24 cephALEXin [Cephalexin] 500 mg PO Q6H 10/26/24 - Disposition Disposition:
[2025-01-10 04:35] VITALS: TEMP 97.8
[2025-01-10 04:40] VITALS: BP 99/44; O2SAT 71
--- NOTE | 2025-01-10 11:48 | EKG ---
Test Date: 2025-01-08 Test Time: 07:31:20 Automobile Glass Technician: JOSE ALBERTO MEASUREMENT RESULTS: Intervals: Rate: 116 NE: QRSD: 128 QT: 356 QTc: 494 [place]: P: NE: QRS: 2 T: 111 INTERPRETIVE STATEMENTS: Atrial fibrillation with occasional and consecutive premature ventricular complexes Left bundle branch block Abnormal ECG No previous ECG available for comparison Electronically Signed On 01-10-25 11:47:35 CDT by Doug Flores
== END 2025-01-08 13:24 | disposition expired | DRG 951 ==
LOC: ER 07:10 → ERHOLD 09:02
PROVIDERS: ADMIT Internal Medicine; ATTEND Internal Medicine
DX: Z51.5 Encounter for palliative care (principal)
CPT/HCPCS: 36415; 71045; 80053; 85025; 93005; 96361; 96374; 99285; G0378; J7030